=== PATIENT | female | born 1955 | race Caucasian/White ===

== ENCOUNTER → 2017-06-24 11:51 | Outpatient (CLI) | payer OTHER, SELFPAY ==
--- NOTE | 2017-06-24 11:55 | CT_ITS ---
STUDY: CT ABDOMEN AND PELVIS WITHOUT CONTRAST REASON FOR EXAM: Female, 61 years old. Mid abdominal pain and hematuria. RADIATION DOSAGE (If Supplied By Facility): CTDIvol = ( 10.50 ) mGy, DLP = ( 548.12 ) mGycm TECHNIQUE: Transaxial images were obtained from the dome of the diaphragm to the symphysis pubis without oral contrast, and without intravenous contrast. Sagittal and coronal images were reconstructed. Individualized dose optimization techniques were used for this CT. COMPARISON: None. FINDINGS: The visualized lung bases are unremarkable. The visualized portions of the heart are within normal limits. There is a 1.3 cm cyst in the superior aspect of the right lobe of the liver. There are surgical clips in the gallbladder fossa consistent with a prior cholecystectomy. Normal spleen. Normal pancreas. Normal bilateral adrenal glands. 2 tiny nonobstructive intrarenal calculi are seen in the lower pole calyx of the right kidney. 2 tiny nonobstructive calculi are seen in the lower pole calyx of the left kidney. There is a small hiatal hernia. Normal small intestine. Normal colon. The appendix is visualized and appears normal. Normal abdominal aorta. Normal inferior vena cava. Normal retroperitoneum. Normal urinary bladder. There is a 2.3 cm x 3.4 cm cyst in the left ovary. Normal abdominal wall. There are degenerative changes of the visualized lumbar spine. CT/Abdomen/Pelvis without Cont IMPRESSION: Small bilateral nonobstructive intrarenal calculi. No obstructive uropathy is seen. 2.3 cm x 3.4 cm left ovarian cyst. Electronically Signed: Adalberto Hurtado MD at 12:29 EST Tel [phone], Service support ,
== END ==
PROVIDERS: Family Provider Internal Medicine; PCP Internal Medicine; Visit Provider Nurse Practitioner Gerontology
DX: N20.0 Calculus of kidney (principal); N83.202 Unspecified ovarian cyst, left side
CPT/HCPCS: 74176

== ENCOUNTER → 2017-11-05 15:06 | Outpatient (CLI) | payer OTHER, SELFPAY ==
--- NOTE | 2017-11-05 15:08 | RAD_ITS ---
STUDY: X-RAY - LUMBAR SPINE REASON FOR EXAM: Female, 62 years old. Low back pain TECHNIQUE: For view(s) of the lumbar spine were obtained. COMPARISON: None FINDINGS: Normal lumbar lordosis. There is no substantial scoliosis. There is a normal alignment of the vertebrae. There is multilevel endplate spondylosis of the lumbar vertebrae. There is multi-level degenerative disc disease with multi-level disc space narrowing. There is no demonstrated fracture. Previous cholecystectomy The soft tissue structures are unremarkable. RAD/L/S Spine Min 4 Views IMPRESSION: Degenerative changes of the spine, as detailed above. Electronically Signed: Satnam Nelson MD at 16:04 EDT , Service support ,
== END ==
PROVIDERS: Family Provider Internal Medicine; PCP Internal Medicine; Visit Provider Nurse Practitioner Gerontology
DX: M47.896 Other spondylosis, lumbar region (principal); M51.36 Other intervertebral disc degeneration, lumbar region; M48.061 Spinal stenosis, lumbar region without neurogenic claudication
CPT/HCPCS: 72110

== ENCOUNTER 2017-11-13 12:51 | Outpatient (RCR) | payer OTHER, SELFPAY ==
--- NOTE | 2017-11-13 14:00 | HP.PTEVAL_ITS ---
Patient's Visit Information DENIS ORR is a 62 year old F referred to Physical Therapy by Mya Woodard NP-C with a diagnosis of back pain, spondylosis and muscle spasm. Date of Evaluation: 11/13/17 Physical Therapist: Lise Mccracken - Visit Plan Frequency: 2x /Week Duration: 4 Weeks Plan: 1-2X/ week due to high co-pay for extension centralization of symptoms, postural exercises, core stability with HEP - Subjective Subjective: [place] is wonderful. Sitting hurts. She is sleeping ok. She did do x-rays and they were normal. 2 weeks ago she picked up a heavy box and she felt something weird but did not feel it until a few days later. Current symptoms: riding in a car hurts and sitting hurts. When she stands up she felt a squeezing of LB and to get up to go to bathroom she had to hold onto something for awhile until it lets up but now she does not have that anymore. She does take Pilates 2 X/ week. No N&T or weakness in the legs - Pain back pain Pain Intensity (Out of 10): 2 - Objective Gait: B hip drop with gait other [place] normal gait pattern. Able to walk on heels and on toes. LE MMT:hip flex 4/5 B, knee ext 4/5 B, knee flex B 4-/5, hip abd B 4/5, hip ext B 4-/5. +SLIMPT test B, + SLR on the R and - on the L. 2X 10 press ups... Pt's R SLUMP test was still + but improved. An additional 2 X 10 Press ups .....pt sat up and had no pain with R SLUMP test. Discussed progression of prone on elbows to press up and full press up with letting belly sag to the table. Discussed and had pt sit with a L-roll behind back and did not have pain after press ups. Discussed avoiding pilates for now with flexion and twisting activities. - Goals Goal 1:: I HEP Goal Time Frame: 4-6 Weeks Goal 2:: Abolish back pain in sitting Goal Time Frame: 4-6 Weeks Goal 3:: Abolish + SLUMP test B Goal Time Frame: 4-6 Weeks Goal 4:: Sit with upright posture during treatment sessions Goal Time Frame: 4-6 Weeks - Rehabilitation Potential Rehabilitation Potential: Good - Anticipated Interventions Patient/Client Instruction: Educate patient on: Condition, Plan of Care For the Purpose of:: To decrease pain, To increase ROM, To improve nutrient delivery to tissue, To improve muscle performance and motor function, To improve ability to perform ADL's, To increase tolerance to activity/condition/ position, To improve health of tissue, To decrease soft tissue restriction, To increase flexibility/ROM Therapeutic Exercise to Include: Strength training, Body mechanics, Postural training, Dynamic Lumbar Stabilization, Andi Exercises, Scapular Strength/ Stabilization For the Purpose of:: To decrease pain, To decrease swelling/inflammation, To increase ROM, To improve nutrient delivery to tissue, To improve muscle performance and motor function, To increase tolerance to activity/condition/ position, To improve ability of physical actions for home/community/work/leisure , To improve health of tissue, To increase flexibility/ROM IF ES: Yes Cryotherapy (ice pack, ice massage): Yes Thermo therapy (hot pack): Yes Ultrasound (thermal/non thermal): Yes For the Purpose of:: To decrease pain, To decrease swelling/inflammation, To increase ROM, To improve nutrient delivery to tissue Thank you for the opportunity to evaluate your patient. For Medicare and Medicare HMO plans, please review the plan of care and approve it. It will need to be FAXED BACK to us at [phone] for Medicare purposes. Please let me know if there are questions or concerns regarding this plan of care. Physician Signature: Date:
--- NOTE | 2018-01-01 17:29 | HP.PTDCNRP_ITS ---
HP - Discharge Summary (1) - Patient Information DENIS ORR was seen in my office for initial evaluation on 11/13/17. The following Plan of Care was established for this patient: Initial Frequency: 2x /Week Initial Duration: 4 Weeks - Anticipated Interventions Patient/Client Instruction: Educate patient on: Condition, Plan of Care For the Purpose of:: To decrease pain, To increase ROM, To improve nutrient delivery to tissue, To improve muscle performance and motor function, To improve ability to perform ADL's, To increase tolerance to activity/condition/ position, To improve health of tissue, To decrease soft tissue restriction, To increase flexibility/ROM Therapeutic Exercise to Include: Strength training, Body mechanics, Postural training, Dynamic Lumbar Stabilization, Andi Exercises, Scapular Strength/ Stabilization For the Purpose of:: To decrease pain, To decrease swelling/inflammation, To increase ROM, To improve nutrient delivery to tissue, To improve muscle performance and motor function, To increase tolerance to activity/condition/ position, To improve ability of physical actions for home/community/work/leisure , To improve health of tissue, To increase flexibility/ROM IF ES: Yes Cryotherapy (ice pack, ice massage): Yes Thermo therapy (hot pack): Yes Ultrasound (thermal/non thermal): Yes For the Purpose of:: To decrease pain, To decrease swelling/inflammation, To increase ROM, To improve nutrient delivery to tissue This patient was last seen in our office 11/13/17. Pertinent comments regarding their Physical therapy will appear below: CARMINE PT as pt cancelled her next appointment after the inital eval. At this point I will be discontinuing this patient from physical therapy. I would be happy to see this patient again in the future if found appropriate by the physician. Thank you! Lise Mccracken
== END 2017-11-13 19:00 | disposition home or self-care (01) ==
LOC: PT 12:51
PROVIDERS: Family Provider Internal Medicine; PCP Internal Medicine; Visit Provider Nurse Practitioner Gerontology
DX: M47.817 Spondylosis without myelopathy or radiculopathy, lumbosacral region (principal); M54.9 Dorsalgia, unspecified; M62.838 Other muscle spasm
CPT/HCPCS: 97161

== ENCOUNTER → 2018-03-18 09:30 | Outpatient (CLI) | payer OTHER, SELFPAY ==
--- NOTE | 2018-03-18 09:30 | FLU_PTH ---
PATIENT: DENIS ORR LOC: [facility] U#:[id number] AGE/SX: 69/F ROOM: RE03/18/[address]: NICHOLE Mcelroy : 1955 BED: DIS: SPEC #: [id number] RECD: 03/18/18 16:00 STATUS: SHAYY KIARA #: [id number] LEONORA: 03/18/18 09:[address]: Jennifer Decker NP DEPT: CYTOLOGY RECD BY: Dorcas Zapata ENTERED: 03/19/18 10:28 SP TYPE: Fluid OTHR DR: Dr. Consuelo Farrell, DO Tissues: Urine Procedures: Pap Stain (control) Special Stain Group II Cytospin Fluid HEADER OPERATION: Not noted PRE-OP DIAGNOSIS: Gross hematuria TISSUE SUBMITTED: Urine for cytology DIAGNOSIS CYTOLOGY Urine for cytology (cytospin): Negative for malignant cells. See comment. AM:hussein 03/20/18 COMMENT The specimen primarily contains benign squamous epithelial cells. Clinical correlation is suggested. CYTOLOGY STUDY Slides are reviewed. CYTOLOGY GROSS Received is 5 ml of cloudy yellow fluid labeled with the patient's name and and designated per the requisition as urine. Submitted for cytology preparation. / CC:cc 03/19/18 TC:5 CPT: 63622
[2018-03-19 10:26] LABS: Cytology, Body Fluid / CSF SEE PATHOLOGY REPORT
--- OUTSIDE RECORDS SUMMARY | 2018-05-14 17:37 | XMS RPT_ITS | Continuity of Care Document ---
:1955 Author Organization [facility] Address [address] [facility] [address] [place] [address] Phone Care Team Providers Name Role Phone [...] 2007, Dr. Makayla Fierro [facility] neurologist in [place], had head injuries in past. at first [...] Active Dispense as Written Comments:LUCASDr. Kerr at [facility] cosme Premarin 0.45 MG Oral Tablet 1 Tablet qd for 30 days Quantity: 30 {Tablet} Refills: 0 Ordered:20-Sep-2017 Maura Farrell DO, DO, Kathleen Start : 20-Sep-2017 Active Probiotic & Acidophilus Ex St Oral Capsule daily Active Prometrium 200 MG Oral Capsule 1 Capsule qd for 0 days Quantity: 30 {Capsule} Refills: 0 Ordered:29-May-2017 Qi TOOL TROUBLE SHOOTERConcepcion Start : 29-May-2017 Active Comments:Dr. Castro [facility] VITAMIN D3, 2000UNIT (Oral Capsule) 1 [...] - PT Result: Comments: See Note; NOTES: [facility] Physical Therapy [facility] [facility] [place], [place] [id number] Fax REHABILITATION SERVICES INITIAL EVALUATION MR#: [id number] Acct: [id number] Name: ELAINE CORNEJO Rep #: [id number] : 1955 62 From: Lise Mccracken MPT Referring Dr.: NICHOLE Woodard Status: REG RCR Insurance: [facility] SELF PAY INSURANCE Patient's Visit Information ELAINE [...] to be FAXED BACK to us at [phone] for Medicare purp oses. Please let me [...] 4 Views Result: Comments: See Note; NOTES: [facility] Imaging Services [address] [place] [address] L/S Spine Min 4 Views MR#: [id number] Acct: [id number] Name: ELAINE CORNEJO Rep #: [id number] : 1955 F 62 From: Moiz Nelson MD PCP: Rachel Jeff DO Status: REG CLI Study: L/S Spine Min 4 Views Date of Exam: 11/05/17 Exam# [id number] Ordering Dr: Mya Woodard STUDY: X-RAY - [...] MD at 16:04 EDT , Service support [phone], CC: NICHOLE Woodard; Rachel Jeff DO Environmental Sustainability Manager: Signed 24-Jun-2017 Abdomen/Pelvis without Cont Result: Comments: See Note; NOTES: [facility] Imaging Services [address] [place] [address] Abdomen/Pelvis without Cont MR#: [id number] Acct: [id number] Name: ELAINE CORNEJO Rep #: [id number] : 1955 F 61 From: Adalberto Hurtado MD PCP: Rachel Jeff DO Status: REG CLI Study: Abdomen/Pelvis without Cont Date of Exam: 06/24/17 Exam# [id number] Ordering Dr: Mya Woodard STUDY: CT ABDOMEN [...] Adalberto Hurtado MD at 12:29 EST Tel [phone], Service support , CC: NICHOLE Woodard; Rachel Jeff DO Environmental Sustainability Manager: Signed 10-Nov-2015 Bilat Scrn Digital AND CAD Result: Comments: See Note; NOTES: [facility] Imaging Services [address] [place] [address] Verdana 4d Bilat Scrn Digital AND CAD MR#: [id number] Acct: [id number] Name: ELAINE CORNEJO Rep #: [id number] : 1955 F 60 From: Adalberto Hurtado MD PCP: Juana Acosta MD Status: REG CLI Study: Micky Youngblood Digital AND CAD Date of Exam: 11/10/15 Exam# [id number] Inder king Dr: Juana Acosta MD MAMMOGRAPHY [...] delay biopsy of a clinically suspicious abnormality. [id number] Electronically Signed: Adalberto Hurtado MD at 15:30 EDT Tel [phone], Servic e support [phone], CC: Juana Acosta MD Environmental Sustainability Manager: Signed 10-Nov-2015 Dexa Bone Density Study (HP) Result: Comments: See Note; NOTES: [facility] Imaging Services [address] [place] [address] Verdana 4d Dexa Bone Density Study (HP) MR#: [id number] Acct: [id number] Name : ELAINE CORNEJO Rep #: [id number] : 1955 F 60 From: Adalberto Hurtado MD PCP: Juana Acosta MD Status: REG CLI Study: Dexa Bone Density Study (HP) Date of Exam: 11/10/15 Exam# [id number] Ludivina yung Dr: Juana Acosta MD STUDY: [...] Adalberto Hurtado MD at 15:16 EDT Tel [phone], Service support [phone], CC: Juana Acosta MD Environmental Sustainability Manager: Signed 27-Oct-2015 Post Void Residual Bladder Result: Comments: See Note; NOTES: [facility] Imaging Services [address] [place] [address] Verdana 4d Post Void Residual Bladder MR#: [id number] Acct: [id number] Name: ELAINE CORNEJO Rep #: [id number] : 1955 F 60 From: Jeyson Espinoza MD PCP: Juana Acosta MD Status: REG CLI Study: Post Void Residual Bladder Date of Exam: 10/27/15 Exam# [id number] Ordering Dr: Juana Acosta MD STUDY: ULTRASOUND [...] Service support , CC: Juana Acosta MD Environmental Sustainability Manager: Signed Family History Unknown Family Member Name [...] smoker Vital Signs Date Test Result Details 14-Xhd-491101:27 Temperature 97.9 f Comments: Method: Temporal Pulse [...] CULTURE-IDENTIFICATN Comments: PATIENT NOT FASTINGPERFORMED BY: [facility] Qvzgpx1328 [facility] [id number] Information: [id number] (08873) Result 1 NG36 (Normal) Comments: No growth in 36 - 48 hours. Urine Culture,Comprehensive Final report (Normal) :29 Urinalysis, Office (21539) UA - LEUKOCYTE ESTERASE Negative (Normal) UA - NITRITE Negative (Normal) URINE UROBILINGN ERIC TIMED Normal mg/dL (Normal) UA - PROTEIN Negative mg/dL (Normal) UA - PH 7 (Normal) UA - BLOOD + (Abnormal) UA - SPECIFIC GRAVITY 1.020 (Normal) UA - KETONES Negative mg/dL (Normal) UA - BILIRUBIN Negative (Normal) UA - GLUCOSE Negative (Normal) 4-Vff-994385:51 Microscopic Examination Comments: PATIENT WAS FASTINGPERFORMED BY: aka-aki networksSamaritan HospitalCvfskf7340 [facility] [id number] Bacteria Few (Normal) Mucus Threads Present (Normal) Epithelial Cells (non renal) 0-10 {/hpf} (Normal) Range: 0 - 10 RBC 0-2 {/hpf} (Normal) Range: 0 - 2 WBC 11-30 {/hpf} (Abnormal) Range: 0 - 5 :51 TSH (54820) Comments: PATIENT WAS FASTINGPERFORMED BY: Cycl[facility] Power TechnologiesJFK Medical CenterQptgtc0062 [facility] [id number] TSH 2.670 {uIU/mL} (Normal) Range: 0.450-4.500 8-Gey-821130:51 URINALYSIS, W/ MICRO (03599) Comments: PATIENT WAS FASTINGPERFORMED BY: Cycl[facility] Power TechnologiesJFK Medical CenterVzzxuo4483 [facility] [id number] Microscopic Examination See below: (Normal) Comments: Microscopic was indicated and was performed. Nitrite, Urine Negative (Normal) Urobilinogen,Semi-Qn 0.2 mg/dL (Normal) Range: 0.2-1.0 Bilirubin Negative (Normal) Occult Blood 2+ (Abnormal) Ketones Negative (Normal) Glucose Negative (Normal) Protein 1+ (Abnormal) WBC Esterase Trace (Abnormal) Appearance Clear (Normal) Urine-Color Yellow (Normal) pH 8.5 (Abnormal) Range: 5.0-7.5 Specific [place] 1.020 (Normal) Range: 1.005-1.030 9-Qnp-170081:51 MICROALBUMIN: CREATININE RATIO Comments: PATIENT WAS FASTINGPERFORMED BY: aka-aki networksThree Rivers Health Hospital6370 [facility] [id number] (86518) AND (12964) Alb/Creat Ratio 16.2 {mg/g_creat} (Normal) Range: 0.0-30.0 Albumin, Urine 23.7 ug/mL (Normal) Creatinine, Urine 146.3 mg/dL (Normal) 5-Vfa-289548:51 METABOLIC PANEL, COMPREHENSIVE Comments: PATIENT WAS FASTINGPERFORMED BY: Hittahem70 [facility] [id number] (53579) ALT (SGPT) 15 [iU]/L (Normal) Range: 0-32 [...] 8-27 Glucose 94 mg/dL (Normal) Range: 65-99 9-Xra-933142:51 LIPID PANEL (90753) Comments: PATIENT WAS FASTINGPERFORMED BY: Hittahem70 [facility] [id number] LDL/HDL Ratio 1.4 {ratio} (Normal) Range: 0.0-3.2 Comments: LDL/HDL Ratio Men Women 1/2 Avg.Risk 1.0 1.5 Av g.Risk 3.6 3.2 2X Avg.Risk 6.2 5.0 3X Avg.Risk 8.0 6.1 LDL Cholesterol Calc 64 mg/dL (Normal) Range: 0-99 VLDL Cholesterol Beni 72 mg/dL (Abnormal) Range: 5-40 HDL Cholesterol 46 mg/dL (Normal) Triglycerides 362 mg/dL (Abnormal) Range: 0-149 Cholesterol, Total 182 mg/dL (Normal) Range: 100-199 8-Viv-230062:51 CBC W/AUTO DIFF WBC (62675) Comments: PATIENT WAS FASTINGPERFORMED BY: [facility] Gpzgus2323 [facility] [id number] Immature Grans (Abs) 0.0 {x10E3/uL} (Normal) Range: [...] (Normal) Range: 3.4-10.8 :54 HgA1C , Office (31011) HgA1C , Office 6.0 % (Normal) Range: 4.6 - 7.1 :54 Blood Glucose , Office (46411) Blood Glucose , Office 86 (Normal) :54 URINE VAUGHN CULTURE-IDENTIFICATN Comments: PATIENT NOT FASTINGPERFORMED BY: [employer] Vhirlg3675 [facility] [id number] Information: SRC: (37527) Result 1 NG36 (Normal) Comments: No growth in 36 - 48 hours. Urine Culture,Comprehensive Final report (Normal) 2-Gpx-520656:03 Urinalysis, Office (13748) UA - LEUKOCYTE ESTERASE Negative (Normal) UA - NITRITE Negative (Normal) URINE UROBILINGN ERIC TIMED 2 mg/dL (Normal) UA - PROTEIN Negative mg/dL (Normal) UA - PH 7.0 (Normal) UA - BLOOD Hemolyzed Trace (Normal) UA - SPECIFIC GRAVITY 1.010 (Normal) UA - KETONES Negative mg/dL (Normal) UA - BILIRUBIN Negative (Normal) UA - GLUCOSE Negative (Normal) 5-Efq-313503:27 URINE VAUGHN CULTURE-ERIC COL Comments: PATIENT NOT FASTINGPERFORMED BY: [employer] Zlycyi9205 [facility] [id number] Information: SRC: COUNT (50191) Result 2 PSMS (Abnormal) Comments: Pseudomonas [id number] Colonies/mL S = Susceptible; I = Intermediate; [...] clindamycin, andtrimethoprim-sulfamethox azole are not effective clinically.(CLSI, X800-X72, 2016) Urine Final report (Abnormal) Culture,Comprehensive 0-Vjv-260441:52 Urinalysis, Office (78793) UA - LEUKOCYTE ESTERASE Negative (Normal) UA [...] Culture,Comprehensive Comments: PATIENT NOT FASTINGPERFORMED BY: [facility] Ekfjsy2528 [facility] [id number] Information: SRC:UC Result 1 PSMS (Abnormal) Comments: Pseudomonas aeruginosaGreater than 100,000 colony forming units per mL S = Susceptible; I = Intermediate; R = Resistant P = Positive; N = Negative MICS are expres sed in micrograms per mL Antibiotic RSLT#1 RSLT#2 RSLT#3 RSLT#4Amikacin SCefepime SCeftazidime SCiprofloxacin SGentamicin SImipenem SLevofloxacin SMeropenem SPiperacillin STicarcillin STobramycin S Urine Final report (Abnormal) Culture,Comprehensive 23-May-20177:53 Urinalysis, Office (21256) UA - LEUKOCYTE ESTERASE Trace (Normal) UA - NITRITE Negative (Normal) URINE UROBILINGN ERIC TIMED 2 mg/dL (Normal) UA - PROTEIN Negative mg/dL (Normal) UA - PH 7.0 (Normal) UA - BLOOD Hemolyzed Large (Normal) UA - SPECIFIC GRAVITY 1.015 (Normal) UA - KETONES Negative mg/dL (Normal) UA - BILIRUBIN Negative (Normal) UA - GLUCOSE Negative (Normal) 87-Hlt-11416:12 HGB A1C (13963) Comments: PATIENT WAS FASTINGPERFORMED BY: [facility] [id number] Hemoglobin A1c 6.2 % (Abnormal) Range: 4.8-5.6 Comments: . Pre-diabetes: 5.7 - 6.4 Diabetes: >6.4 Glycemic control for adults with diabetes: <7.0 86-Yfy-02914:12 CALCIFEDIOL (03893) Comments: PATIENT WAS FASTINGPERFORMED BY: aka-aki networksThree Rivers Health Hospital6370 [facility] [id number] Vitamin D, 25-Hydroxy 40.1 ng/mL (Normal) Range: 30.0-100.0 Comments: Vitamin D deficiency has been defined by the [place] of[place] and an Endocrine Society practice guideline as alevel of serum 25-OH vitamin D less than 20 ng/mL (1,2).The Endocrine Society went on to further define vitamin Dinsufficiency as a level between 21 and 29 ng/mL (2).1. IOM ([place] of Medicine). 2010. Dietary reference intakes for calcium and D. [place]: The National Academies Press.2. Nasra MF, [place], Hugh DÍAZ, et al. Evaluation, treatment, and prevention of vitamin D deficiency: an Endocrine Society clinical practice guideline. JCEM. 2010; 96(7):1911-30. 50-Mva-00707:12 CBC, Platelets & Auto Diff Comments: PATIENT WAS FASTINGPERFORMED BY: [facility]6[address] [facility] [id number] (69859) Basos 0 % (Normal) Eos 3 % [...] Neutrophils (Absolute) 4.0 {x10E3/uL} (Normal) Range: 1.4-7.0 13-Bla-02235:12 Metabolic Panel, Comprehensive Comments: PATIENT WAS FASTINGPERFORMED BY: LabCoJFK Medical CenterCwnmch0492 [facility] [id number] (27808) ALT (SGPT) 15 [iU]/L (Normal) Range: 0-32 [...] Glucose, Serum 108 mg/dL (Abnormal) Range: 65-99 54-Swt-72624:12 LIPID PANEL (12560) Comments: PATIENT WAS FASTINGPERFORMED BY: [facility] Nvlyot7719 [facility] [id number] LDL/HDL Ratio 1.5 {ratio_units} (Normal) Range: 0.0-3.2 [...] (Normal) Range: 100-199 :38 HgA1C , Office (10659) HgA1C , Office 6.1 % (Normal) Range: 4.6 - 7.1 :47 Blood Glucose , Office (94520) :12 CBC W/Diff, Automated Comments: [facility] [address] [place], [place], [id number] ; fu 7-28 Absolute Lymph 2.58 {X10_3/ul} [...] 4.2-5.4 WBC 6.3 K/mm3 (Normal) Range: 4.4-11.0 07-Izi-04975:12 Comprehensive Metabolic Profil Comments: [facility] [address] [place], [address] GAP 10 (Normal) Range: 5-15 CO2 24.0 [...] (Normal) Range: 70-110 :12 Free T3 Comments: [facility] [address] [place], [place], [address] FREE T3 2.6 pg/mL (Normal) Range: 2.18-3.98 :12 Lipid Profile Comments: [facility] [address] [place], [place], [id number] VLDL 55 mg/dL (Abnormal) Range: 5-40 LDL [...] >240 mg/dL High Risk :12 Prolactin Comments: [facility] [address] [place], [address] PROLACTIN 5.2 ng/mL (Normal) Comments: NORMAL REFERENCE RANGES FEMALE NON- 2.2 - 30.3 ng/mL 8.1 - 347.6 ng/mL POST-MENOPAUSAL 0.7 - 3 1.5 ng/mL MALE 2.5 - 17.4 ng/mLNEW TEST METHOD AND REFERENCE RANGES SEPTEMBER 10, 2011:12 T4 Free Direct Comments: [facility] [address] [place], [phone] T4 FREE DIRECT 0.85 ng/dL (Normal) Range: 0.76-1.46 :12 Thyroid Stim Hormone (TSH) Comments: [facility] [address] [place], [address] TSH 3.00 {uIU/mL} (Normal) Range: 0.358-3.74 :12 Vitamin D,25 Hydroxy Comments: [facility] [address] [place], [address] Vitamin D 25-OH 28.4 ng/mL (Normal) Comments: Vitamin D 25(OH) Status Range Deficiency <20 ng/mL (50nmol/L) Insuffciency 20 - 30 ng/mL (50 - 75 nmol/L) Sufficiency 30 - 100 ng/mL (75 - 250 nmol/L) Toxicity >100 ng/mL (>250 nmol/L) 3-Wtd-612739:02 URINE VAUGHN CULTURE-IDENTIFICATN Comments: recheck in 3-4 weeks once done with atb; PATIENT NOT FASTINGPERFORMED BY: [facility] Wdjgtb4185 [facility] [id number] Information: [id number] (14845) Antimicrobial MIHEAD (Normal) Comments: S = Susceptible; [...] Final report Culture,Comprehensive (Abnormal) :56 Urinalysis, Office (42926) UA - LEUKOCYTE ESTERASE Negative (Normal) UA - NITRITE Negative (Normal) URINE UROBILINGN ERCI TIMED Normal mg/dL (Normal) UA - PROTEIN Negative mg/dL (Normal) UA - BLOOD Negative (Normal) UA - SPECIFIC GRAVITY 1.020 (Normal) UA - KETONES Small mg/dL (Normal) UA - BILIRUBIN Negative (Normal) UA - GLUCOSE Negative (Normal) 89-Nlk-977197:05 URINE VAUGHN CULTURE-ERIC COL Comments: PATIENT NOT FASTINGPERFORMED BY: [facility] Vjwqhi1491 [facility] [id number] Information: SRC:URC [id number] COUNT (93101) Antimicrobial MIHEAD (Normal) Comments: S = Susceptible; [...] mL (Abnormal) Urine Final report Culture,Comprehensive (Abnormal) 73-Dzv-29595:02 Urinalysis, Office (95945) UA - LEUKOCYTE ESTERASE Negative (Normal) UA [...] Lab Indication: Hematuria, microscopic Hyperlipidemia : Reviewed Senior Product Consultant Letter Indication: Hyperlipidemia Hyperlipidemia : Continue Current [...] prescriptions (G8553) Indication: Hyperlipidemia Planned Observations TRIGLYCERIDES (50413)Indication: Hypertriglyceridemia On: 23-Ypu-606611:11 Request Blood Glucose , Office (06060)Indication: Impaired fasting glucose On: 10-Qhm-24812:47 Request CALCIFIDIOL (83246) VIT D 25Indication: Osteopenia On: :56 Request PROLACTIN (65796)Indication: PMB (postmenopausal bleeding) On: :42 Request CBC (Auto) (10896)Indication: Hyperlipidemia On: :42 Request Metabolic Panel, Comprehensive (01054)Indication: Hyperlipidemia On: :42 Request Lipid Panel (87041)Indication: Hyperlipidemia On: :42 Request T3, FREE (TRIDOTHYRONINE) (13505)Indication: PMB (postmenopausal bleeding) On: :42 Request T4, FREE (THYROXINE) (73779)Indication: PMB (postmenopausal bleeding) On: :42 Request TSH (94267)Indication: PMB (postmenopausal bleeding) On: :42 Request Planned Procedures PHYSICAL THERAPY (73080)By: Vance On: 07-Nov-2017 Intent Mya PHYSICAL THERAPY (50788)By: Vance On: 05-Nov-2017 Intent Mya Wax CurettesBy: Mya Woodard On: 05-Nov-2017 Intent Ear Irrigation (94264)By: Vance On: 05-Nov-2017 Intent Mya Comments: IrrigationSite- L and R earAmount/Color/Quality - small amoubt of dark brown cerumen removed from bilateral ears Tolerated wellChelsea, ENGRAVER COPPERPLATE Radiology - Lumbar SpineBy: Vance On: 05-Nov-2017 Intent Mya ELECTROCARDIOGRAM, COMPLETE (ECG) On: 20-Sep-2017 Intent (17191)By: Consuelo Farrell DO Comments: nsr no acute chgs-- IVCD-- no old to compare Consuelo Farrell DO CT - Abdomen & Pelvis Stone On: 24-Jun-2017 Intent ProtocolBy: Mya Woodard Comments: R/O kidney stone BLADDER ULTRASOUND SCAN WITH On: 22-Sep-2015 Intent MEASUREMENT OF POST-VOID RESIDUAL Comments: in 4 weeks after done with atb URINE VOLUME (60420)By: Juana Acosta MD MAMMOGRAM, SCREENING, BOTH BREAST On: 29-Aug-2015 Intent (00299)By: Juana Acosta MD DEXA SCAN AXIAL SKELETON (08873)By: On: 29-Aug-2015 Intent Dave FAITH, Juana Carr [...] for malignant neoplasm of breast), Sleep disturbance [facility] Internal Medicine Payers [facility] Tanner Cornejo; a guarantor
--- OUTSIDE RECORDS SUMMARY | 2018-05-14 17:37 | XMS RPT_ITS | Continuity of Care Document ---
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 at first [...] Active Dispense as Written Comments:LUCASDr. Kerr at [facility] cosme Premarin 0.45 MG Oral Tablet 1 Tablet qd for 30 days Quantity: 30 {Tablet} Refills: 0 Ordered:20-Sep-2017 Maura Farrell DO, DO, Kathleen Start : 20-Sep-2017 Active Probiotic & Acidophilus Ex St Oral Capsule daily Active Prometrium 200 MG Oral Capsule 1 Capsule qd for 0 days Quantity: 30 {Capsule} Refills: 0 Ordered:29-May-2017 Concepcion Busby CNP Start : 29-May-2017 Active Comments:Dr. Castro [facility] VITAMIN D3, 2000UNIT (Oral Capsule) 1 [...] - PT Result: Comments: See Note; NOTES: [facility] Physical Therapy [facility]. [address] [place] [address] Fax REHABILITATION SERVICES INITIAL EVALUATION MR#: [id number] Acct: [id number] Name: ELAINE CORNEJO Rep #: [id number] : 1955 62 From: Lise Mccracken MPT Referring Dr.: NICHOLE Woodard Status: REG RCR Insurance: icanbuy SELF PAY INSURANCE Patient's Visit Information ELAINE [...] to be FAXED BACK to us at [phone] for Medicare purp oses. Please let me [...] 4 Views Result: Comments: See Note; NOTES: [facility] Imaging Services [address] [place] [address] L/S Spine Min 4 Views MR#: [id number] Acct: [id number] Name: ELAINE CORNEJO Rep #: [id number] : 1955 F 62 From: Moiz eNlson MD PCP: Rachel Jeff DO Status: REG CLI Study: L/S Spine Min 4 Views Date of Exam: 11/05/17 Exam# [id number] Ordering Dr: Mya Woodard STUDY: X-RAY - [...] MD at 16:04 EDT , Service support [phone], CC: NICHOLE Woodard; Rachel Jeff DO Car Bracer: Signed 24-Jun-2017 Abdomen/Pelvis without Cont Result: Comments: See Note; NOTES: [facility] Imaging Services [address] [place] [address] Abdomen/Pelvis without Cont MR#: [id number] Acct: [id number] Name: ELAINE CORNEJO Rep #: [id number] : 1955 F 61 From: Adalberto Hurtado MD PCP: Rachel Jeff DO Status: REG CLI Study: Abdomen/Pelvis without Cont Date of Exam: 06/24/17 Exam# [id number] Ordering Dr: Mya Woodard STUDY: CT ABDOMEN [...] Adalberto Hurtado MD at 12:29 EST Tel [phone], Service support , CC: NICHOLE Woodard; Rachel Jeff DO Car Bracer: Signed 10-Nov-2015 Bilat Scrn Digital AND CAD Result: Comments: See Note; NOTES: [facility] Imaging Services [address] [place] [address] Verdana 4d Bilat Scrn Digital AND CAD MR#: [id number] Acct: [id number] Name: ELAINE CORNEJO Rep #: [id number] : 1955 F 60 From: Adalberto Hurtado MD PCP: Juana Acosta MD Status: REG CLI Study: Bilat Scrn Digital AND CAD Date of Exam: 11/10/15 Exam# [id number] Inder king Dr: Juana Acosta MD MAMMOGRAPHY [...] delay biopsy of a clinically suspicious abnormality. [id number] Electronically Signed: Adalberto Hurtado MD at 15:30 EDT Tel [phone], Servic e support [phone], CC: Juana Acosta MD Car Bracer: Signed 10-Nov-2015 Dexa Bone Density Study (HP) Result: Comments: See Note; NOTES: [facility] Imaging Services [address] [place] [address] [place] 4d Dexa Bone Density Study (HP) MR#: [id number] Acct: [id number] Name : ELAINE CORNEJO Rep #: [id number] : 1955 F 60 From: Adalberto Hurtado MD PCP: Juana Acosta MD Status: REG CLI Study: Dexa Bone Density Study (HP) Date of Exam: 11/10/15 Exam# [id number] Ludivina yung Dr: Juana Acosta MD STUDY: [...] Adalberto Hurtado MD at 15:16 EDT Tel [phone], Service support [phone], CC: Juana Acosta MD Car Bracer: Signed 27-Oct-2015 Post Void Residual Bladder Result: Comments: See Note; NOTES: [facility] Imaging Services [address] [place] [address] Verdana 4d Post Void Residual Bladder MR#: [id number] Acct: [id number] Name: ELAINE CORNEJO Rep #: [id number] : 1955 F 60 From: Jeyson Espinoza MD PCP: Juana Acosta MD Status: REG CLI Study: Post Void Residual Bladder Date of Exam: 10/27/15 Exam# [id number] Ordering Dr: Juana Acosta MD STUDY: ULTRASOUND [...] Service support , CC: Juana Acosta MD Car Bracer: Signed Family History Unknown Family Member Name [...] smoker Vital Signs Date Test Result Details 90-Daj-799450:27 Temperature 97.9 f Comments: Method: Temporal Pulse [...] Body Fluid / CSF Comments: Specimen Source: [facility] [address] [place], [address] CYTOLOGY,BF/CSF SEE PATHOLOGY REPORT Comments: Specimen submitted to Anatomical Pathology Department fortesting. (Normal) :30 Fluid/Washing See Note (Normal) Comments: [facility] [address] [place], [place], [id number] Comments: Patient: ELAINE CORNEJO : 1955 (62/F) Acct Num: [id number] Phys: Brianne MICHELA,Jennifer Unit Num: [id number] Loc: LABSPEC Specimen: [id number] Received: 03/18/18 - 1600 Spec Type: Fluid TISSUES 1 TISSUES: Urine COMMENT The specimen primarily contains benign squamous epithelial cells. Clinical correlation is suggested. CYTOLOGY GROSS Received is 5 m l of cloudy yellow fluid labeled with the patient's name and and designated per the requisition as urine. Submitted for cytology preparation. / CC:cc 03/19/18 TC:5 CPT: 33634 CYTOLOGY DYLLAN DY Slides are reviewed. DIAGNOSIS CYTOLOGY Urine for cytology (cytospin): Negative for malignant cells. See comment. AM:rg 03/20/18 HEADER OPERATION: Not noted PRE-OP DIAGNOSIS: Gross hematuria TISSUE SUBMITTED: Urine for cytology Signed [facility] 03/20/18 <signature on file> 85-Cjg-714356:38 URINE VAUGHN CULTURE-IDENTIFICATN Comments: PATIENT NOT FASTINGPERFORMED BY: Dagne Dover Hlcbti7580 [facility] [id number] Information: [id number] (78809) Result 1 NG36 (Normal) Comments: No growth in 36 - 48 hours. Urine Culture,Comprehensive Final report (Normal) 94-Kya-999759:29 Urinalysis, Office (74661) UA - LEUKOCYTE ESTERASE Negative (Normal) UA - NITRITE Negative (Normal) URINE UROBILINGN ERIC TIMED Normal mg/dL (Normal) UA - PROTEIN Negative mg/dL (Normal) UA - PH 7 (Normal) UA - BLOOD + (Abnormal) UA - SPECIFIC GRAVITY 1.020 (Normal) UA - KETONES Negative mg/dL (Normal) UA - BILIRUBIN Negative (Normal) UA - GLUCOSE Negative (Normal) 3-Yng-633446:51 Microscopic Examination Comments: PATIENT WAS FASTINGPERFORMED BY: Dagne DoverRoosevelt General HospitalAnctxf1917 [facility] [id number] Bacteria Few (Normal) Mucus Threads Present (Normal) Epithelial Cells (non renal) 0-10 {/hpf} (Normal) Range: 0 - 10 RBC 0-2 {/hpf} (Normal) Range: 0 - 2 WBC 11-30 {/hpf} (Abnormal) Range: 0 - 5 7-Yzc-219018:51 TSH (12864) Comments: PATIENT WAS FASTINGPERFORMED BY: [facility] [id number] TSH 2.670 {uIU/mL} (Normal) Range: 0.450-4.500 6-Bml-328225:51 URINALYSIS, W/ MICRO (16951) Comments: PATIENT WAS FASTINGPERFORMED BY: [facility] [place] [address] [id number] Microscopic Examination See below: (Normal) Comments: Microscopic was indicated and was performed. Nitrite, Urine Negative (Normal) Urobilinogen,Semi-Qn 0.2 mg/dL (Normal) Range: 0.2-1.0 Bilirubin Negative (Normal) Occult Blood 2+ (Abnormal) Ketones Negative (Normal) Glucose Negative (Normal) Protein 1+ (Abnormal) WBC Esterase Trace (Abnormal) Appearance Clear (Normal) Urine-Color Yellow (Normal) pH 8.5 (Abnormal) Range: 5.0-7.5 Specific [place] 1.020 (Normal) Range: 1.005-1.030 8-Fdh-264254:51 MICROALBUMIN: CREATININE RATIO Comments: PATIENT WAS FASTINGPERFORMED BY: [facility] [id number] (70989) AND (77688) Alb/Creat Ratio 16.2 {mg/g_creat} (Normal) Range: 0.0-30.0 Albumin, Urine 23.7 ug/mL (Normal) Creatinine, Urine 146.3 mg/dL (Normal) 6-Tfg-276253:51 METABOLIC PANEL, COMPREHENSIVE Comments: PATIENT WAS FASTINGPERFORMED BY: [facility] [id number] (84116) ALT (SGPT) 15 [iU]/L (Normal) Range: 0-32 [...] 8-27 Glucose 94 mg/dL (Normal) Range: 65-99 6-Rcv-367090:51 LIPID PANEL (34023) Comments: PATIENT WAS FASTINGPERFORMED BY: LabCoEnglewood Hospital and Medical CenterBrfwen1939 [facility] [id number] LDL/HDL Ratio 1.4 {ratio} (Normal) Range: 0.0-3.2 [...] Range: 100-199 :51 CBC W/AUTO DIFF WBC (35805) Comments: PATIENT WAS FASTINGPERFORMED BY: [facility] Luhtex7816 [facility] [id number] Immature Grans (Abs) 0.0 {x10E3/uL} (Normal) Range: [...] (Normal) Range: 3.4-10.8 :54 HgA1C , Office (68312) HgA1C , Office 6.0 % (Normal) Range: 4.6 - 7.1 :54 Blood Glucose , Office (27387) Blood Glucose , Office 86 (Normal) 5-Nxo-131361:54 URINE VAUGHN CULTURE-IDENTIFICATN Comments: PATIENT NOT FASTINGPERFORMED BY: [employer] Bxcshz9163 [facility] [id number] Information: SRC: ([id number]) Result 1 NG36 (Normal) Comments: No growth in 36 - 48 hours. Urine Culture,Comprehensive Final report (Normal) 7-Qzv-687709:03 Urinalysis, Office (87916) UA - LEUKOCYTE ESTERASE Negative (Normal) UA - NITRITE Negative (Normal) URINE UROBILINGN ERIC TIMED 2 mg/dL (Normal) UA - PROTEIN Negative mg/dL (Normal) UA - PH 7.0 (Normal) UA - BLOOD Hemolyzed Trace (Normal) UA - SPECIFIC GRAVITY 1.010 (Normal) UA - KETONES Negative mg/dL (Normal) UA - BILIRUBIN Negative (Normal) UA - GLUCOSE Negative (Normal) 1-Zca-348984:27 URINE VAUGHN CULTURE-ERIC COL Comments: PATIENT NOT FASTINGPERFORMED BY: [employer] Mgqojs6560 [facility] [id number] Information: SRC: COUNT (22467) Result 2 PSMS (Abnormal) Comments: Pseudomonas eynfybpntx712 Colonies/mL S = Susceptible; I = Intermediate; [...] clindamycin, andtrimethoprim-sulfamethox azole are not effective clinically.(CLSI, R893-Y10, 2016) Urine Final report (Abnormal) Culture,Comprehensive 4-Dnv-562708:52 Urinalysis, Office (17620) UA - LEUKOCYTE ESTERASE Negative (Normal) UA [...] Urine Culture,Comprehensive Comments: PATIENT NOT FASTINGPERFORMED BY: Beiang TechnologyAs[facility] Hospital [id number] Information: SRC: Result 1 PSMS (Abnormal) Comments: Pseudomonas aeruginosaGreater than 100,000 colony forming units per mL S = Susceptible; I = Intermediate; R = Resistant P = Positive; N = Negative MICS are expres sed in micrograms per mL Antibiotic RSLT#1 RSLT#2 RSLT#3 RSLT#4Amikacin SCefepime SCeftazidime SCiprofloxacin SGentamicin SImipenem SLevofloxacin SMeropenem SPiperacillin STicarcillin STobramycin S Urine Final report (Abnormal) Culture,Comprehensive 23-May-20177:53 Urinalysis, Office (94094) UA - LEUKOCYTE ESTERASE Trace (Normal) UA - NITRITE Negative (Normal) URINE UROBILINGN ERIC TIMED 2 mg/dL (Normal) UA - PROTEIN Negative mg/dL (Normal) UA - PH 7.0 (Normal) UA - BLOOD Hemolyzed Large (Normal) UA - SPECIFIC GRAVITY 1.015 (Normal) UA - KETONES Negative mg/dL (Normal) UA - BILIRUBIN Negative (Normal) UA - GLUCOSE Negative (Normal) :12 HGB A1C (87403) Comments: PATIENT WAS FASTINGPERFORMED BY: boomtrainox South49 SolutionsAs[facility] Hospital [id number] Hemoglobin A1c 6.2 % (Abnormal) Range: 4.8-5.6 Comments: . Pre-diabetes: 5.7 - 6.4 Diabetes: >6.4 Glycemic control for adults with diabetes: <7.0 97-Gvi-22991:12 CALCIFEDIOL (94523) Comments: PATIENT WAS FASTINGPERFORMED BY: [facility] Hospital6370 [facility] [id number] Vitamin D, 25-Hydroxy 40.1 ng/mL (Normal) Range: 30.0-100.0 Comments: Vitamin D deficiency has been defined by the [place] ofMedicine and an Endocrine Society practice guideline as alevel of serum 25-OH vitamin D less than 20 ng/mL (1,2).The Endocrine Society went on to further define vitamin Dinsufficiency as a level between 21 and 29 ng/mL (2).1. IOM ([place] of Medicine). 2010. Dietary reference intakes for calcium and D. [place]: The National Academies Press.2. Nasra MF, Topher ROCHA, Hugh DÍAZ, et al. Evaluation, treatment, and prevention of vitamin D deficiency: an Endocrine Society clinical practice guideline. JCEM. 2010; 96(7):1911-30. 09-Qho-75019:12 CBC, Platelets & Auto Diff Comments: PATIENT WAS FASTINGPERFORMED BY: LabCoEnglewood Hospital and Medical CenterVkchnp8972 [facility] [id number] (77378) Basos 0 % (Normal) Eos 3 % [...] Neutrophils (Absolute) 4.0 {x10E3/uL} (Normal) Range: 1.4-7.0 35-Eca-42606:12 Metabolic Panel, Comprehensive Comments: PATIENT WAS FASTINGPERFORMED BY: [facility] Pvfcqp7329 [facility] [id number] (03218) ALT (SGPT) 15 [iU]/L (Normal) Range: 0-32 [...] mg/dL (Abnormal) Range: 65-99 :12 LIPID PANEL (21164) Comments: PATIENT WAS FASTINGPERFORMED BY: [facility] Hsupzp[address] [place] [id number] LDL/HDL Ratio 1.5 {ratio_units} (Normal) Range: 0.0-3.2 [...] (Normal) Range: 100-199 :38 HgA1C , Office (91975) HgA1C , Office 6.1 % (Normal) Range: 4.6 - 7.1 :47 Blood Glucose , Office (71309) :12 CBC W/Diff, Automated Comments: [facility] [address] [place], [address] ; fu 7-28 Absolute Lymph 2.58 {X10_3/ul} [...] 4.2-5.4 WBC 6.3 K/mm3 (Normal) Range: 4.4-11.0 02-Yxw-50494:12 Comprehensive Metabolic Profil Comments: [facility] [address] [place], [place], [id number] GAP 10 (Normal) Range: 5-15 CO2 24.0 [...] (Normal) Range: 70-110 :12 Free T3 Comments: [facility] [address] [place], [place], [address] FREE T3 2.6 pg/mL (Normal) Range: 2.18-3.98 :12 Lipid Profile Comments: [facility] [address] [place], [place], [id number] VLDL 55 mg/dL (Abnormal) Range: 5-40 LDL [...] >240 mg/dL High Risk :12 Prolactin Comments: [facility] [address] [place], [place], [id number] PROLACTIN 5.2 ng/mL (Normal) Comments: NORMAL REFERENCE RANGES FEMALE NON- 2.2 - 30.3 ng/mL 8.1 - 347.6 ng/mL POST-MENOPAUSAL 0.7 - 3 1.5 ng/mL MALE 2.5 - 17.4 ng/mLNEW TEST METHOD AND REFERENCE RANGES SEPTEMBER 10, 2011:12 T4 Free Direct Comments: [facility] [address] [place], [place], [id number] T4 FREE DIRECT 0.85 ng/dL (Normal) Range: 0.76-1.46 :12 Thyroid Stim Hormone (TSH) Comments: [facility] [address] [place], [id number] TSH 3.00 {uIU/mL} (Normal) Range: 0.358-3.74 :12 Vitamin D,25 Hydroxy Comments: [facility] [address] [place], [id number] Vitamin D 25-OH 28.4 ng/mL (Normal) Comments: Vitamin D 25(OH) Status Range Deficiency <20 ng/mL (50nmol/L) Insuffciency 20 - 30 ng/mL (50 - 75 nmol/L) Sufficiency 30 - 100 ng/mL (75 - 250 nmol/L) Toxicity >100 ng/mL (>250 nmol/L) 8-Huk-561230:02 URINE VAUGHN CULTURE-IDENTIFICATN Comments: recheck in 3-4 weeks once done with atb; PATIENT NOT FASTINGPERFORMED BY: [facility] Hcswmj0265 [facility] [id number] Information: [id number] (93333) Antimicrobial MIHEAD (Normal) Comments: S = Susceptible; [...] Final report Culture,Comprehensive (Abnormal) :56 Urinalysis, Office (95969) UA - LEUKOCYTE ESTERASE Negative (Normal) UA - NITRITE Negative (Normal) URINE UROBILINGN ERIC TIMED Normal mg/dL (Normal) UA - PROTEIN Negative mg/dL (Normal) UA - BLOOD Negative (Normal) UA - SPECIFIC GRAVITY 1.020 (Normal) UA - KETONES Small mg/dL (Normal) UA - BILIRUBIN Negative (Normal) UA - GLUCOSE Negative (Normal) 69-Hqe-376846:05 URINE VAUGHN CULTURE-ERIC COL Comments: PATIENT NOT FASTINGPERFORMED BY: SERGEY [facility] [address] [place] [id number] Information: SRC:URC [id number] COUNT (37778) Antimicrobial MIHEAD (Normal) Comments: S = Susceptible; [...] mL (Abnormal) Urine Final report Culture,Comprehensive (Abnormal) 39-Qln-78078:02 Urinalysis, Office (77502) UA - LEUKOCYTE ESTERASE Negative (Normal) UA [...] Lab Indication: Hematuria, microscopic Hyperlipidemia : Reviewed Printer Operator Letter Indication: Hyperlipidemia Hyperlipidemia : Continue Current [...] Hyperlipidemia Planned Observations TSH (THYROID STIMULATING HORMONE) (51177)Indication: Hot flash, menopausal On: :40 Request URINALYSIS (34061)Indication: Type II diabetes mellitus, well controlled On: :39 Request CBC & PLATELETS (AUTO) (30429)Indication: Type II diabetes mellitus, well controlled On: 39 Request Metabolic Panel, Comprehensive (97320)Indication: Type II diabetes mellitus, well controlled On: :39 Request LIPID PANEL (10011)Indication: Hyperlipidemia On: :39 Request MICROALBUMIN: CREATININE RATIO (26336) AND (63054)Indication: Type II diabetes mellitus, well controlled On: 6-Gzi-500669:38 Request TRIGLYCERIDES (38592)Indication: Hypertriglyceridemia On: 69-Gds-796942:11 Request Blood Glucose , Office (30068)Indication: Impaired fasting glucose On: 62-Itt-37893:47 Request CALCIFIDIOL (64646) VIT D 25Indication: Osteopenia On: :56 Request PROLACTIN (04088)Indication: PMB (postmenopausal bleeding) On: :42 Request CBC (Auto) (82013)Indication: Hyperlipidemia On: :42 Request Metabolic Panel, Comprehensive (45522)Indication: Hyperlipidemia On: :42 Request Lipid Panel (24612)Indication: Hyperlipidemia On: :42 Request T3, FREE (TRIDOTHYRONINE) (36416)Indication: PMB (postmenopausal bleeding) On: :42 Request T4, FREE (THYROXINE) (62681)Indication: PMB (postmenopausal bleeding) On: :42 Request TSH (25093)Indication: PMB (postmenopausal bleeding) On: :42 Request Planned Encounters Medical; 3 Month FU - On: 09-Apr-2018 14:15 [facility] Consuelo Farrell DO, DO, Kathleen Planned Procedures PHYSICAL THERAPY (73390)By: Vance On: 07-Nov-2017 Intent Mya PHYSICAL THERAPY (27943)By: Vance On: 05-Nov-2017 Intent Mya Wax CurettesBy: Mya Woodard On: 05-Nov-2017 Intent Ear Irrigation (59688)By: Vance On: 05-Nov-2017 Intent Mya Comments: IrrigationSite- L and R earAmount/Color/Quality - small amoubt of dark brown cerumen removed from bilateral ears Tolerated wellChelsea, VEHICLE OPERATOR Radiology - Lumbar SpineBy: Vance On: 05-Nov-2017 Intent Mya ELECTROCARDIOGRAM, COMPLETE (ECG) On: 20-Sep-2017 Intent (90470)By: Consuelo Farrell DO Comments: nsr no acute chgs-- IVCD-- no old to compare Consuelo Farrell DO CT - Abdomen & Pelvis Stone On: 24-Jun-2017 Intent ProtocolBy: Mya Woodard Comments: R/O kidney stone BLADDER ULTRASOUND SCAN WITH On: 22-Sep-2015 Intent MEASUREMENT OF POST-VOID RESIDUAL Comments: in 4 weeks after done with atb URINE VOLUME (66575)By: Juana Acosta MD MAMMOGRAM, SCREENING, BOTH BREAST On: 29-Aug-2015 Intent (51724)By: Juana Acosta MD DEXA SCAN AXIAL SKELETON (54326)By: On: 29-Aug-2015 Intent Juana Acosta MD Instructions [...] breast), Sleep disturbance [facility] Payers [facility] Tanner Cornejo; a guarantor
--- OUTSIDE RECORDS SUMMARY | 2018-05-14 17:37 | XMS RPT_ITS ---
:1955 Author Organization OHIP Care Team Providers Name Role Phone Concepcion Busby Attending Unavailable Concepcion Busby Referring Unavailable Juana Acosta Primary Care Unavailable Mya Woodard RIVERBOAT CAPTAIN-C Attending Unavailable Mya Woodard RIVERBOAT CAPTAIN-C Referring Unavailable Fast, Rachel Primary Care Unavailable Mya Woodard RIVERBOAT CAPTAIN-C Attending Unavailable Mya Woodard RIVERBOAT CAPTAIN-C Referring Unavailable Fast, Rachel Primary Care Unavailable Fast, Rachel Primary Care Unavailable Referred, Self Attending Unavailable Mya Woodard RIVERBOAT CAPTAIN-C Attending Unavailable Mya Woodard RIVERBOAT CAPTAIN-Dontae Referring Unavailable Jami, Consuelo Primary Care Unavailable Jennifer Decker Attending Unavailable Jennifer Decker Attending Unavailable Jennifer Decker Referring Unavailable Jami, Consuelo Primary Care Unavailable CONCEPCION HUANG ([facility]) Attending Unavailable CONCEPCION HUANG ([facility]) Referring Unavailable ERWIN FIERRO Attending Unavailable Jami DO, Consuelo Attending Unavailable Juana Acosta MD Referring Unavailable Jami DO, Consuelo Consulting Unavailable Krystina MAYFIELD Attending Unavailable Franny Jeff Referring Unavailable Franny Jeff Primary Care Unavailable Purpose Purpose PROBLEMS PROBLEMS DATE TYPE CONDITION / CODE ATTENDING STATUS SOURCE 03/25/2018 Unknown R31.0 - Jennfier Toussaint Active [place] hematuria / M [facility] R31.0(ICD-10) Hospital Repository 01/01/2018 Unknown 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, lumbosacral region / M47.817(ICD-10) 10/17/2017 Active Headache / NATHANIEL, Active [facility] R51(ICD-10) [facility] Repository PROCEDURES PROCEDURES No Procedure Records FoundVITAL SIGNS VITAL SIGNS No Vital Signs Records FoundRESULTS RESULTS FLUID/WASHING Observed: 03/18/2018 Status: F Source: PABLO 9:30 AM [facility] REPOSITORY Patient: ELAINE CORNEJO : 1955 (62/F) Acct Num: [id number] Phys: Jennifer Decker NP Unit Num: [id number] Loc: LABSPEC Specimen: [id number] Received: 03/18/18 - 1600 Spec Type: Fluid TISSUES 1 TISSUES: Urine COMMENT The specimen primarily contains benign squamous epithelial cells. Clinical correlation is suggested. CYTOLOGY GROSS Received is 5 ml of cloudy yellow fluid labeled with the patient's name and and designated per the requisition as urine. Submitted for cytology preparation. / CC:cc 03/19/18 TC:5 CPT: 77676 CYTOLOGY STUDY Slides are reviewed. DIAGNOSIS CYTOLOGY Urine for cytology (cytospin): Negative for malignant cells. See comment. AM:rg 03/20/18 HEADER OPERATION: Not noted PRE-OP DIAGNOSIS: Gross hematuria TISSUE SUBMITTED: Urine for cytology Signed Kai Kimble 03/20/18 <signature on file> Performed By: #### PFLU #### [facility] [place], [address] CYTOLOGY, BODY FLUID / Collected: 03/18/2018 Status: F Source: PABLO CSF 9:30 AM [facility] REPOSITORY Order Comment: Specimen Source: URINE TYPE CODE TESTS RESULT OUT OF RANGE REFERENCE UNITS LAB L350.1000 SEE Normal PATHOLOGY CYTOLOGY,BF REPORT /CSF Result Comment: Specimen submitted to Anatomical Pathology Department for testing. Performed By: #### L350.1000 #### [facility] [address] [place], [address] INITAL EVALUATION (1) Observed: 11/15/2017 Status: F Source: PABLO - PT 12:30 PM [facility] REPOSITORY [facility] Physical Therapy [facility] [address] [place], [place] [address] Fax REHABILITATION SERVICES INITIAL EVALUATION MR#: [id number] Acct: [id number] Name: ELAINE CORNEJO Rep #: [id number] : 1955 62 From: Lise Mccracken MPT Referring Dr.: NICHOLE Woodard Status: REG RCR Insurance: [employer] SELF PAY INSURANCE Patient's Visit Information ELAINE [...] to be FAXED BACK to us at [phone] for Medicare purposes. Please let me know if there are questions or concerns regarding this plan of care. Physician Signature: Date: <Electronically signed by Lise Mccracken MPT> 11/15/17 1230 CC: NICHOLE Woodard; Consuelo Farrell DO Signed For Medicare only, by signing this I certify the plan of care. Physicians Signature Date L/S SPINE MIN 4 Observed: 11/05/2017 Status: F Source: GRADY VIEWS 3:08 PM [facility] REPOSITORY [facility] Imaging Services [address] [place] [address] L/S Spine Min 4 Views MR#: [id number] Acct: [id number] Name: MACJASSONELAINE J Rep #: [id number] : 1955 F 62 From: Moiz Nelson MD PCP: Rachel Jeff DO Status: REG CLI Study: L/S Spine Min 4 Views Date of Exam: 11/05/17 Exam# [id number] Ordering Dr: Mya Woodard STUDY: X-RAY - [...] , CC: NICHOLE Woodard; Rachel Jeff DO Accounts Receivable Executive: Signed PROGRESS Observed: 10/17/2017 Status: COMPLETED Source: WILDER 8:13 AM [facility] REPOSITORY HNO ID: [id number] Author: Erwin Fierro Service: (none) Author Type: [...] 2 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 FMH: FAMILY HISTORY [...] 1 capsule by mouth once daily. FROM [facility] Cholecalciferol, Vitamin D3, 2,000 unit cap Take [...] GAIT: Stable primary gait. Erwin Fierro M.D. 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 FMH: FAMILY HISTORY [...] 1 capsule by mouth once daily. FROM [facility] Cholecalciferol, Vitamin D3, 2,000 unit cap Take [...] GAIT: Stable primary gait. Erwin Fierro M.D. [facility]rological [place] Department of Neu[facility] cc: SELF Rachel Jeff MD [address] [place] [address] Referring Provider: SELF [200] Allergies As of [...] Status: F Source: PABLO CONT 11:55 AM [facility] REPOSITORY [facility] Imaging Services [address] [place] [address] Abdomen/Pelvis without Cont MR#: [id number] Acct: [id number] Name: ELAINE CORNEJO Rep #: [id number] : 1955 F 61 From: Adalberto Hurtado MD PCP: Rachel Jeff DO Status: REG CLI Study: Abdomen/Pelvis without Cont Date of Exam: 06/24/17 Exam# [id number] Ordering Dr: Mya Woodard RIVERBOAT CAPTAIN-C STUDY: CT ABDOMEN AND PELVIS WITHOUT CONTRAST [...] Adalberto Hurtado MD at 12:29 EST Tel [phone], Service support , CC: NICHOLE Woodard; Rachel Jeff DO Accounts Receivable Executive: Signed CNOV Observed: 04/26/2017 Status: COMPLETED Source: WILDER 10:00 AM [facility] REPOSITORY Office Visit (WCTRMN) CLEMENTEELAINE Nic ([id number]) 1955 F Date Time Provider Department 04/26/17 10:00 AM CONCEPCION HUANG (PIERCER OPERATOR) WCTRMN During your visit today, we recorded the following information about you: Blood pressure Weight Height 130/80 85.3 kg 1.765 m Concepcion Huang CNP 04/26/2017 10:21 AM Signed PROVIDER NOTE: Elaine Cornejo, 61 year old, 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 PCP: Syl Lane [...] 1 capsule by mouth once daily. FROM [facility] Cholecalciferol, Vitamin D3, 2,000 unit cap Take [...] Adnexa: no masses, nontender ASSESSMENT: 1. Routine CARPENTER HELPER MAINTENANCE exam 2. Symptomatic menopausal state PLAN: 1. [...] for annual and prn Concepcion Huang MSN, PIERCER OPERATOR Concepcion Huang, PIERCER OPERATOR 04/26/2017 10:01 AM Signed BONE MINERAL DENSITY [...] usual activities immediately. Referring Provider: CONCEPCION HUANG ([facility]) [[id number]] Allergies As of Date: 04/26/2017 Noted Allergy [...] age 53 [N95.1] Order(s):[facility] SCREENING [[id number]] Order #: [id number] FUTURE PREMARIN 0.45 mg tabletTake 1 tablet [...] 04/26/2017 9:57 AM >> MCKEON JOSE GUADALUPE ERNANDEZ Fri Apr 26, 2017 9:57 AM Not [...] 04/26/17 PROGRESS Observed: 04/26/2017 Status: COMPLETED Source: WILDER 9:58 AM [facility] REPOSITORY HNO ID: [id number] Author: Concepcion Perry ([place]) Kaveh Service: (none) Author Type: Nurse Practitioner Type: Progress Notes Filed: 04/26/2017 10:21 AM Note Text: PROVIDER NOTE: Elaine Monacoluhjasson, 61 year old, 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 PCP: Syl Lane [...] 1 capsule by mouth once daily. FROM [facility] Cholecalciferol, Vitamin D3, 2,000 unit cap Take [...] Adnexa: no masses, nontender ASSESSMENT: 1. Routine CARPENTER HELPER MAINTENANCE exam 2. Symptomatic menopausal state PLAN: 1. [...] for annual and prn Concepcion Huang MSN, PIERCER OPERATOR ALLERGIES ALLERGIES DATE TYPE / CODE NAME / CODE REACTION SEVERITY SOURCE 03/22/2016 DRUG VENOM-HONEY BEE RASH [facility] INGREDI/[address] [place] 848126(SN Repository ED CT) 04/04/2015 Environ/420 DUST OTHER: SEE C [facility] 384136(SNOM [address] [place] ED CT) Repository 03/26/2015 Environ/420 SEASONAL UNKNOWN [facility] 264610(SNOM ALLERGIES [address] [place] ED [address]) Repository NG/[id number] DUST [facility](SNOMED [facility]) Repository NG/[id number] SEASONAL [facility]) Repository NG/[id number] VENOM-HONEY BEE [facility] 6([facility] Health System CT) Repository ENCOUNTERS ENCOUNTERS ADMIT/DISCHARGE ACCOUNT NUMBER ADMITTING ENCOUNTER LOCATION SOURCE CLASS 03/24/2018 [id number] Ambulatory Building:[facility] [place] Practices Repository 03/18/2018 [id number] [facility] ding:LABSPEC Repository 03/18/2018 [id number] [facility] ding:LABSPEC Repository 11/13/2017/11/14/[id number] ding:PT Repository 11/06/2017 [id number] [facility] ding:MASS Repository 11/05/2017 [id number] [facility] ding:HPRAD Repository 10/17/2017/10/19/19 [id number] [address] Repository 09/02/2017 [id number] Ambulatory [facility] MEDICAL Repository CENTERBuildi ng:URAE 06/24/2017 [id number] [facility] ding:CT Repository 06/17/2017 [id number] [facility] ding:NS Repository 04/26/2017/04/29/19 [id number] Ambulatory [address] Repository FUNCTIONAL STATUS FUNCTIONAL STATUS No Functional Status Records FoundEQUIPMENT EQUIPMENT No Equipment Records FoundPAYERS PAYERS ENCOUNTER GUARANTOR PAYER SUBSCRIBER SOURCE 03/24/2018 Elaine Gonzalez [facility]: Insurance:Andrew Alberts: Repository [id number] [employer] [id number] [place] Number: [address] [place], [place] [id number] [place], [place] [address]Pwd: [phone]) Date:3047-93-11Cnck 585[address]Inb: Name:[facility] [phone] (HP) (HP)Tel: (450) [place] [phone] () [address]IY: 03/18/2018 ELAINE Lucero Primary CARLOS Shah [id number] Insurance:[facility] Number: [place], [place] [id number] Repository [address]Bnu: (330) Date:6929-63-00ET [phone] (HP) [address] [place] [address]TZ: 03/18/2018 Secondary NOT GIVENUNK [place] Insurance:SELF PAY [facility] Number: Effective Repository Date:2018-03-18 03/18/2018 ELAINE Nic Primary ELAINE Shah [id number] Insurance:SUMMA CLEMENTEDOB: [facility] Number: [id number] [id number] Repository [address]Jyg: 330) Date:2915-71-48XQ [phone] (HP) [facility] [place] [address]GF: 03/18/2018 Secondary NOT GIVENUNK [place] Insurance:SELF PAY [facility] Number: Effective Repository Date:2018-03-18 11/13/2017 ELAINE J Primary ELAINE Shah [id number] Insurance:SUMMA CLEMENTEDOB: [facility] Number: [id number] [place], [place] [id number] Repository [address]Gfd: (330) Date:6922-16-09FU [phone] (HP) [place] [address]CO: 11/13/2017 Secondary NOT GIVENUNK Pablo Insurance:SELF PAY [facility] Hospital Number: Effective Repository Date:2017-11-07 11/06/2017 ELAINE J Primary NOT GIVENUNK Pablo [id number] Insurance:SELF PAY [place] Number: Effective Repository [id number]: ([phone]) Date:2017-11-05 [phone] (HP) 11/05/2017 ELAINE Lucero Primary ELAINE Shah [id number] Insurance:SUMMA CLEMENTEDOB: [facility] Number: [id number] [place] [id number] Repository [address]Wtg: (330) Date:6076-22-16QV [phone] (HP) [address], [place] [address]KK: 11/05/2017 Secondary NOT GIVENUNK Pablo Insurance:SELF PAY [facility] Number: Effective Repository Date:2017-11-05 09/02/2017 ELAINE J Primary Insurance:[place] CARLOS Guo [facility] CenterLuhYKB: [facility] Number: [id number] [place], [place] Date: [address]Cea: (HP) 06/24/2017 ELAINE J Primary ELAINE Shah [id number] Insurance:SUMMA CLEMENTEDOB: [facility] Number: [id number] [place], [place] [id number] Repository [address]Ibw: ([phone]) Date:8888-24-79XJ [phone] (HP) [address] [place] [phone]: 06/24/2017 Secondary NOT GIVENUNK [place] Insurance:SELF PAY [facility] Number: Effective Repository Date:2017-06-24 06/17/2017 Elaine Primary Elaine Shah [id number] Insurance:SUMMA ClementeDOB: [facility] Number: [id number] [place], [place] [id number] Repository [address]Ybo: (330) Date:4233-33-54XG [phone] () [place] [address]JL: 06/17/2017 Secondary NOT GIVENUNK [place] Insurance:SELF PAY [facility] Number: Effective Repository Date:2017-06-06 SOCIAL HISTORY SOCIAL HISTORY No Social History Records FoundFAMILY HISTORY FAMILY HISTORY No Family History Records FoundADVANCE DIRECTIVES ADVANCE DIRECTIVES No Advanced Directives Records FoundINFORMATION SOURCE INFORMATION SOURCE DATE CREATED AUTHOR AUTHOR'S ORGANIZATION 04/09/2018 STEFFANY
== END ==
PROVIDERS: Family Provider Internal Medicine; PCP Internal Medicine; Referring Provider Nurse Practitioner Adult Health; Visit Provider Nurse Practitioner Adult Health
DX: R31.0 Gross hematuria (principal)
CPT/HCPCS: 88108; 88305; 88313

== ENCOUNTER → 2018-03-18 17:49 | Outpatient (CLI) | payer OTHER, SELFPAY ==
--- OUTSIDE RECORDS SUMMARY | 2018-05-14 09:40 | XMS RPT_ITS ---
:1955 Author Organization OHIP Care Team Providers Name Role Phone Concepcion Busby Attending Unavailable Concepcion Busby Referring Unavailable Juana Acosta Primary Care Unavailable Mya Woodard PLASTIC PANEL INSTALLER-C Attending Unavailable Mya Woodard PLASTIC PANEL INSTALLER-C Referring Unavailable Fast, Rachel Primary Care Unavailable Mya Woodard PLASTIC PANEL INSTALLER-C Attending Unavailable Mya Woodard PLASTIC PANEL INSTALLER-C Referring Unavailable Fast, Rachel Primary Care Unavailable Fast, Rachel Primary Care Unavailable Referred, Self Attending Unavailable Mya Woodard PLASTIC PANEL INSTALLER-C Attending Unavailable Mya Woodard PLASTIC PANEL INSTALLER-Dontae Referring Unavailable Jami, Consuelo Primary Care Unavailable Jennifer Decker Attending Unavailable Jennifer Decker Attending Unavailable Jennifer Decker Referring Unavailable Jami, Consuelo Primary Care Unavailable Consuelo Farrell DO Attending Unavailable Juana Acosta MD Referring Unavailable Jami DO Consuelo Consulting Unavailable CONCEPCION HUANG ([facility]) Attending Unavailable CONCEPCION HUANG ([facility]) Referring Unavailable NATHANIEL, ERWIN Attending Unavailable Krystina MAYFIELD Attending Unavailable Franny Jeff Referring Unavailable Franny Jeff Primary Care Unavailable Purpose Purpose PROBLEMS PROBLEMS DATE TYPE CONDITION / CODE ATTENDING STATUS SOURCE 03/25/2018 Unknown R31.0 - Jennifer Toussaint Active [facility] hematuria / [facility] R31.0(ICD-10) Hospital Repository 01/01/2018 Unknown 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 Active [place] Spondylosis PLASTIC PANEL INSTALLER-C [facility]ly [facility] without Hospital myelopathy or Repository radiculopathy, lumbosacral region / M47.817(ICD-10) 10/17/2017 Active Headache / NATHANIEL, Active [facility] R51(ICD-10) ERWIN [facility] PROCEDURES PROCEDURES No Procedure Records FoundVITAL SIGNS VITAL SIGNS No Vital Signs Records FoundRESULTS RESULTS FLUID/WASHING Observed: 03/18/2018 Status: F Source: [place] 9:[address] [facility] REPOSITORY Patient: ELAINE CORNEJO : 1955 (62/F) Acct Num: [id number] Phys: Jennifer Decker NP Unit Num: [id number] Loc: LABSPEC Specimen: [id number] Received: 03/18/18 - 1600 Spec Type: Fluid TISSUES 1 TISSUES: Urine COMMENT The specimen primarily contains benign squamous epithelial cells. Clinical correlation is suggested. CYTOLOGY GROSS Received is 5 ml of cloudy yellow fluid labeled with the patient's name and and designated per the requisition as urine. Submitted for cytology preparation. / CC:cc 03/19/18 TC:5 CPT: 74063 CYTOLOGY STUDY Slides are reviewed. DIAGNOSIS CYTOLOGY Urine for cytology (cytospin): Negative for malignant cells. See comment. AM:rg 03/20/18 HEADER OPERATION: Not noted PRE-OP DIAGNOSIS: Gross hematuria TISSUE SUBMITTED: Urine for cytology Signed Kai Kimble 03/20/18 <signature on file> Performed By: #### PFLU #### [facility] [place], [address] CYTOLOGY, BODY FLUID / Collected: 03/18/2018 Status: F Source: [place] CSF 9:[address] [facility] REPOSITORY Order Comment: Specimen Source: URINE TYPE CODE TESTS RESULT OUT OF RANGE REFERENCE UNITS LAB L350.1000 SEE Normal PATHOLOGY CYTOLOGY,BF REPORT /CSF Result Comment: Specimen submitted to Anatomical Pathology Department for testing. Performed By: #### L350.1000 #### [facility] [address] [place], [address] INITAL EVALUATION (1) Observed: 11/15/2017 Status: F Source: [place] - PT 12:[address] [facility] REPOSITORY [facility] Physical Therapy [facility] [address] [place], [place] [address] Fax REHABILITATION SERVICES INITIAL EVALUATION MR#: [id number] Acct: [id number] Name: ELAINE CORNEJO Rep #: [id number] : 1955 62 From: Lise Mccracken MPT Referring Dr.: NICHOLE Woodard Status: REG RCR Insurance: [employer] SELF PAY INSURANCE Patient's Visit Information ELAINE CORNEJO is a 62 year old F referred to Physical Therapy by NICHOLE Melchor with a diagnosis of back pain, spondylosis and muscle spasm. Date of Evaluation: 11/13/17 Physical Therapist: Lise Mccracken - Visit Plan Frequency: 2x /Week Duration: 4 Weeks Plan: 1-2X/ week due to high co-pay for extension centralization of symptoms, postural exercises, core stability with HEP - Subjective Subjective: Michael is wonderful. Sitting hurts. She is sleeping ok. She did do x-rays and they were normal. 2 weeks ago she picked up a heavy box and she felt something weird but did not feel it until a few days later. Current symptoms: riding in a car hurts and sitting hurts. When she stands up she felt a squeezing of LB and to get up to go to bathroom she had to hold onto something for awhile until it lets up but now she does not have that anymore. She does take Pilates 2 X/ week. No N AND T or weakness in the legs - Pain back pain Pain Intensity (Out of 10): 2 - Objective Gait: B hip drop with gait other [place] normal gait pattern. Able to walk on heels and on toes. LE MMT:hip flex 4/5 B, knee ext 4/5 B, knee flex B 4-/5, hip abd B 4/5, hip ext B 4-/5. +SLIMPT test B, + SLR on the R and - on the L. 2X 10 press ups... Pt's R SLUMP test was still + but improved. An additional 2 X 10 Press ups .....pt sat up and had no pain with R SLUMP test. Discussed progression of prone on elbows to press up and full press up with letting belly sag to the table. Discussed and had pt sit with a L- roll behind back and did not have pain after press ups. Discussed avoiding pilates for now with flexion and twisting activities. - Goals Goal 1:: I HEP Goal Time Frame: 4-6 Weeks Goal 2:: Abolish back pain in sitting Goal Time Frame: 4-6 Weeks Goal 3:: Abolish + SLUMP test B Goal Time Frame: 4-6 Weeks Goal 4:: Sit with upright posture during treatment sessions Goal Time Frame: 4-6 Weeks - Rehabilitation Potential Rehabilitation Potential: Good - Anticipated Interventions Patient/Client Instruction: Educate patient on: Condition, Plan of Care For the Purpose of:: To decrease pain, To increase ROM, To improve nutrient delivery to tissue, To improve muscle performance and motor function, To improve ability to perform ADL's, To increase tolerance to activity/condition/position, To improve health of tissue, To decrease soft tissue restriction, To increase flexibility/ROM Therapeutic Exercise to Include: Strength training, Body mechanics, Postural training, Dynamic Lumbar Stabilization, Andi Exercises, Scapular Strength/Stabilization For the Purpose of:: To decrease pain, To decrease swelling/inflammation, To increase ROM, To improve nutrient delivery to tissue, To improve muscle performance and motor function, To increase tolerance to activity/condition/position, To improve ability of physical actions for home/community/work/leisure, To improve health of tissue, To increase flexibility/ROM IF ES: Yes Cryotherapy (ice pack, ice massage): Yes Thermo therapy (hot pack): Yes Ultrasound (thermal/non thermal): Yes For the Purpose of:: To decrease pain, To decrease swelling/inflammation, To increase ROM, To improve nutrient delivery to tissue Thank you for the opportunity to evaluate your patient. For Medicare and Medicare HMO plans, please review the plan of care and approve it. It will need to be FAXED BACK to us at [phone] for Medicare purposes. Please let me know if there are questions or concerns regarding this plan of care. Physician Signature: Date: <Electronically signed by Lise Mccracken MPT> 11/15/17 1230 CC: NICHOLE Woodard; Consuelo Farrell DO Signed For Medicare only, by signing this I certify the plan of care. Physicians Signature Date L/S SPINE MIN 4 Observed: 11/05/2017 Status: F Source: [place] VIEWS 3:[address] [facility] REPOSITORY [facility] Imaging Services [address] [place] [address] L/S Spine Min 4 Views MR#: [id number] Acct: [id number] Name: MACJASSONELAINE J Rep #: [id number] : 1955 F 62 From: Moiz Nelson MD PCP: Rachel Jeff DO Status: REG CLI Study: L/S Spine Min 4 Views Date of Exam: 11/05/17 Exam# [id number] Ordering Dr: Mya Woodard STUDY: X-RAY - LUMBAR SPINE REASON FOR EXAM: Female, 62 years old. Low back pain TECHNIQUE: For view(s) of the lumbar spine were obtained. COMPARISON: None FINDINGS: Normal lumbar lordosis. There is no substantial scoliosis. There is a normal alignment of the vertebrae. There is multilevel endplate spondylosis of the lumbar vertebrae. There is multi-level degenerative disc disease with multi-level disc space narrowing. There is no demonstrated fracture. Previous cholecystectomy The soft tissue structures are unremarkable. RAD/L/S Spine Min 4 Views IMPRESSION: Degenerative changes of the spine, as detailed above. Electronically Signed: Satnam Nelson MD at 16:04 EDT , Service support , CC: NICHOLE Woodard; Rachel Jeff DO Dough Mixer Operator: Signed PROGRESS Observed: 10/17/2017 Status: COMPLETED Source: [place] 8:13 AM [facility] REPOSITORY HNO ID: [id number] Author: Erwin Fierro Service: (none) Author Type: Physician Type: Progress Notes Filed: 10/17/2017 8:23 AM Note Text: Neurology Follow-up Visit ASSESSMENT: 61 year old female with epilepsy. Doing well on low-dose Keppra, too sedated on higher dose. She is doing well with no breakthrough seizures. In the past she tried going off Keppra but had a partial spell. Continue Keppra 250 mg BID- needs brand ? PLAN: --->?Continue Keppra 250 mg BID ? ? --->?Follow-up: 1 year or sooner prn Last Visit: 10/17/2016 Interval Hx: Doing well. No seizures. No side effects. Getting brand Keppra. Still mild memory slips, not worse than last year. No weakness, numbness, tingling, vision changes, imbalance. PMH: PAST MEDICAL HISTORY Diagnosis Date - Epilepsy (HCC) 1993 last seizure 2007, resolved with keppra. - Family history of diabetes mellitus (DM) father - Fibroid, uterine 1993 on US 08/2014 on US submucosal 4 mm endometrium - menopause age 53 2009 - Osteopenia 03/2014 T-score -1.2 - Other and unspecified hyperlipidemia on statin - Postmenopausal atrophic vaginitis 11/2013 offered vagifem - Postmenopausal HRT (hormone replacement therapy) 11/2013 New Health Issues: No SOC: Social History Marital status: Spouse name: Carlos Years of education: 16 Number of children: 2 Occupational History Occupation Employer Comment retired primary school teacher librarian Social History Main Topics Smoking status: Never Smoker Smokeless tobacco: Never Used Alcohol use: Yes Comment: social- 2x per week,1 drink Drug use: No Sexual activity: Yes Partners with: Male Comment: was on ocp then condoms Social History Narrative Lives in [place] Son 27, daughter 30. FMH: FAMILY HISTORY Problem Relation Age of Onset - Colon Cancer Father passed from heart failure - Diabetes Father on B12 shots - healthy [OTHER] Mother - Ulcerative colitis [OTHER] Son - ocd [OTHER] Daughter low in B12 on B12 shots MEDS: Current Outpatient Prescriptions: KEPPRA 250 mg tablet Take 1 tablet by mouth twice daily. Brand name Keppra only PREMARIN 0.45 mg tablet Take 1 tablet by mouth once daily. progesterone micronized (PROMETRIUM) 200 mg capsule Take 1 capsule by mouth once daily. one po at HS with bite of food fluticasone (FLONASE) 50 mcg/actuation nasal spray Use in the nose. atorvastatin 20 mg tablet Take 20 mg by mouth daily at bedtime. ubidecarenone Q-10 50 mg capsule Take 1 capsule by mouth once daily. FROM [facility] Cholecalciferol, Vitamin D3, 2,000 unit cap Take 1 capsule by mouth once daily. one po daily No current facility-administered medications for this visit. REVIEW OF SYSTEMS: Review of system : unchanged from the previous visit or as per HPI (sleep patterns, mood, energy, appetite, stress, exercising). Physical Examination: BP 114/72 (BP Site: Left Arm, BP Position: Sitting, BP Cuff Size: Regular Adult) Pulse (!) 59 Wt 83.5 kg (184 lb) LMP 10/12/2003 SpO2 98% BMI 26.78 kg/m? GEN: Alert. NAD. Normal affect. Cooperative. HEENT: No rhinorrhea, lacrimation or conjunctival injection. Normal mucosa. NECK/BACK: Supple EXT: No cyanosis. No edema. No erythema. NEUROLOGICAL: MENTAL STATUS: A+O x 3. Attentive. Thought process and content unremarkable. Follows commands appropriately. Speech fluent. CN: II: Pupils equal III, IV, : EOMI. No ptosis present. VII: Face symmetric. VIII: No nystagmus. XI: Symmetric shoulder shrug. MOTOR: Normal tone. Normal bulk. Motor strength 5/5 throughout. CEREBELLAR: No ataxia or nystagmus. FTN and HSN intact GAIT: Stable primary gait. Erwin Fierro M.D. [facility] [place] Department of Neu[facility] cc: SELF Rachel Jeff MD [address] [address] CNOV Observed: 10/17/2017 Status: COMPLETED Source: [place] 7:40 AM [facility] REPOSITORY Office Visit (NEURMM) ELAINE CORNEJO ([id number]) 1955 F Date Time Provider Department 10/17/17 7:40 AM ERWIN FIERRO During your visit today, we recorded the following information about you: Pulse Blood pressure Weight 59/minute 114/72 83.5 kg Erwin Fierro MD 10/17/2017 8:23 AM Signed Neurology Follow-up Visit ASSESSMENT: 61 year old female with epilepsy. Doing well on low-dose Keppra, too sedated on higher dose. She is doing well with no breakthrough seizures. In the past she tried going off Keppra but had a partial spell. Continue Keppra 250 mg BID- needs brand ? PLAN: --->?Continue Keppra 250 mg BID ? ? --->?Follow-up: 1 year or sooner prn Last Visit: 10/17/2016 Interval Hx: Doing well. No seizures. No side effects. Getting brand Keppra. Still mild memory slips, not worse than last year. No weakness, numbness, tingling, vision changes, imbalance. PMH: PAST MEDICAL HISTORY Diagnosis Date - Epilepsy (HCC) 1993 last seizure 2007, resolved with keppra. - Family history of diabetes mellitus (DM) father - Fibroid, uterine 1994 on US 08/2014 on US submucosal 4 mm endometrium - menopause age 53 2009 - Osteopenia 03/2014 T-score -1.2 - Other and unspecified hyperlipidemia on statin - Postmenopausal atrophic vaginitis 11/2013 offered vagifem - Postmenopausal HRT (hormone replacement therapy) 11/2013 New Health Issues: No SOC: Social History Marital status: Spouse name: Carlos Years of education: 16 Number of children: 2 Occupational History Occupation Employer Comment retired primary school teacher librarian Social History Main Topics Smoking status: Never Smoker Smokeless tobacco: Never Used Alcohol use: Yes Comment: social- 2x per week,1 drink Drug use: No Sexual activity: Yes Partners with: Male Comment: was on ocp then condoms Social History Narrative Lives in [place] Son 27, daughter 30. FMH: FAMILY HISTORY Problem Relation Age of Onset - Colon Cancer Father passed from heart failure - Diabetes Father on B12 shots - healthy [OTHER] Mother - Ulcerative colitis [OTHER] Son - ocd [OTHER] Daughter low in B12 on B12 shots MEDS: Current Outpatient Prescriptions: KEPPRA 250 mg tablet Take 1 tablet by mouth twice daily. Brand name Keppra only PREMARIN 0.45 mg tablet Take 1 tablet by mouth once daily. progesterone micronized (PROMETRIUM) 200 mg capsule Take 1 capsule by mouth once daily. one po at HS with bite of food fluticasone (FLONASE) 50 mcg/actuation nasal spray Use in the nose. atorvastatin 20 mg tablet Take 20 mg by mouth daily at bedtime. ubidecarenone Q-10 50 mg capsule Take 1 capsule by mouth once daily. FROM [facility] Cholecalciferol, Vitamin D3, 2,000 unit cap Take 1 capsule by mouth once daily. one po daily No current facility-administered medications for this visit. REVIEW OF SYSTEMS: Review of system : unchanged from the previous visit or as per HPI (sleep patterns, mood, energy, appetite, stress, exercising). Physical Examination: BP 114/72 (BP Site: Left Arm, BP Position: Sitting, BP Cuff Size: Regular Adult) Pulse (!) 59 Wt 83.5 kg (184 lb) LMP 10/12/2003 SpO2 98% BMI 26.78 kg/m? GEN: Alert. NAD. Normal affect. Cooperative. HEENT: No rhinorrhea, lacrimation or conjunctival injection. Normal mucosa. NECK/BACK: Supple EXT: No cyanosis. No edema. No erythema. NEUROLOGICAL: MENTAL STATUS: A+O x 3. Attentive. Thought process and content unremarkable. Follows commands appropriately. Speech fluent. CN: II: Pupils equal III, IV, : EOMI. No ptosis present. VII: Face symmetric. VIII: No nystagmus. XI: Symmetric shoulder shrug. MOTOR: Normal tone. Normal bulk. Motor strength 5/5 throughout. CEREBELLAR: No ataxia or nystagmus. FTN and HSN intact GAIT: Stable primary gait. Erwin Fierro M.D. [facility] [place] Department of Neurology [facility] cc: SELF Rachel Jeff MD [address] [place] [id number] Referring Provider: SELF [200] Allergies As of Date: 10/17/2017 Noted Allergy Reaction DUST 04/04/2015 14 - Other: See Comments Comments: Environmental-sneezing SEASONAL ALLERGIES 03/26/2015 16 - Unknown VENOM-HONEY BEE 03/22/2016 2 - Rash Date Reviewed: 10/17/2017 Reviewed by: Erwin Fierro - Fully Assessed Reason for Visit: Seizures [97] Primary Visit Diagnosis:Nonintractable generalized idiopathic epilepsy without status epilepticus (HCC) [G40.309] Order(s):KEPPRA 250 mg tabletTake 1 tablet by mouth twice daily. Brand name Keppra onlyDisp: 60 tabletRfl: 11 Prescriptions as of 10/17/2017 Sig: KEPPRA 250 MG TABLET Take 1 tablet by mouth twice * PREMARIN 0.45 MG TABLET Take 1 tablet by mouth once d* PROGESTERONE MICRONIZED 200 M* Take 1 capsule by mouth once * FLUTICASONE 50 MCG/ACTUATION * Use in the nose. ATORVASTATIN 20 MG TABLET Take 20 mg by mouth daily at * COENZYME Q10 50 MG CAPSULE Take 1 capsule by mouth once * CHOLECALCIFEROL (VITAMIN D3) * Take 1 capsule by mouth once * Problem List As Of Date 10/17/2017 Noted Resolved Epilepsy (HCC) [G40.909] INVALID FOR* Routine gynecological examination [Z01.419] INVALID FOR*04/04/2015 menopause age 53 [N95.1] INVALID FOR* Postmenopausal atrophic vaginitis [N95.2] Postmenopausal HRT (hormone replacement therapy*INVALID FOR* Fibroid, uterine [D25.9] Other and unspecified hyperlipidemia [E78.5] 04/04/2015 Family history of diabetes mellitus (DM) [Z83.3] BPPV (benign paroxysmal positional vertigo) [H8*INVALID FOR* Laryngitis [J04.0] INVALID FOR* Rhinitis [J31.0] INVALID FOR* Osteopenia [M85.80] Encounter for screening mammogram for malignant*INVALID FOR*11/21/2016 Prescriptions ordered this encounter Disp Refills Start End KEPPRA 250 MG TABLET 60 t* 11 10/17/2017 10/17/2018 Route: ORAL Sig: Take 1 tablet by mouth twice daily. Brand name Keppra only Medications Discontinued During This Encounter KEPPRA 250 mg tablet 60 t* 0 09/17/2017 10/17/2017 Cmt: This prescription was filled on 09/14/2017. Any refills authorized will be placed on file. Route: ORAL Sig: Take 1 tablet by mouth twice daily. Brand name Keppra only Disc: Reason for discontinue is not on file. Disposition: Return in about 1 year (around 10/17/2018). Follow-up and Disposition History Recorded Encounter Status:Closed by ERWIN FIERRO MD on 10/17/17 ABDOMEN/PELVIS WITHOUT Observed: 06/24/2017 Status: F Source: [place] CONT 11:[address] [facility] REPOSITORY [facility] Imaging Services [address] [place] [address] Abdomen/Pelvis without Cont MR#: [id number] Acct: [id number] Name: ELAINE CORNEJO Rep #: [id number] : 1955 F 61 From: Adalberto Hurtado MD PCP: Rachel Jeff DO Status: REG CLI Study: Abdomen/Pelvis without Cont Date of Exam: 06/24/17 Exam# [id number] Ordering Dr: Mya Woodard PLASTIC PANEL INSTALLER-C STUDY: CT ABDOMEN AND PELVIS WITHOUT CONTRAST REASON FOR EXAM: Female, 61 years old. Mid abdominal pain and hematuria. RADIATION DOSAGE (If Supplied By Facility): CTDIvol = ( 10.50 ) mGy, DLP = ( 548.12 ) mGycm TECHNIQUE: Transaxial images were obtained from the dome of the diaphragm to the symphysis pubis without oral contrast, and without intravenous contrast. Sagittal and coronal images were reconstructed. Individualized dose optimization techniques were used for this CT. COMPARISON: None. FINDINGS: The visualized lung bases are unremarkable. The visualized portions of the heart are within normal limits. There is a 1.3 cm cyst in the superior aspect of the right lobe of the liver. There are surgical clips in the gallbladder fossa consistent with a prior cholecystectomy. Normal spleen. Normal pancreas. Normal bilateral adrenal glands. 2 tiny nonobstructive intrarenal calculi are seen in the lower pole calyx of the right kidney. 2 tiny nonobstructive calculi are seen in the lower pole calyx of the left kidney. There is a small hiatal hernia. Normal small intestine. Normal colon. The appendix is visualized and appears normal. Normal abdominal aorta. Normal inferior vena cava. Normal retroperitoneum. Normal urinary bladder. There is a 2.3 cm x 3.4 cm cyst in the left ovary. Normal abdominal wall. There are degenerative changes of the visualized lumbar spine. CT/Abdomen/Pelvis without Cont IMPRESSION: Small bilateral nonobstructive intrarenal calculi. No obstructive uropathy is seen. 2.3 cm x 3.4 cm left ovarian cyst. Electronically Signed: Adalberto Hurtado MD at 12:29 EST Tel [phone], Service support , CC: NICHOLE Woodard; Rachel Jeff DO Dough Mixer Operator: Signed CNOV Observed: 04/26/2017 Status: COMPLETED Source: [place] 10:00 AM [facility] REPOSITORY Office Visit (WCTRMN) CLEMENTEELAINE Nic ([id number]) 1955 F Date Time Provider Department 04/26/17 10:00 AM CONCEPCION HUANG ([facility]) [facility]CTRMN During your visit today, we recorded the following information about you: Blood pressure Weight Height 130/80 85.3 kg 1.765 m Concepcion Huang CNP 04/26/2017 10:21 AM Signed PROVIDER NOTE: Elaine Cornejo, 61 year old, here for an annual redye hand exam Patient's last menstrual period was 10/12/2003. Obstetric History T2 L2 SAB0 TAB0 Ectopic0 Multiple0 Live Births0 Comment: Menarche 11, FFTP 26. Breast fed for a ANDlt;6 weeks both pregnancies. Two vaginal deliveries. Was on OCPs before children born. Did well on. Menopause onset: 53 PostMenopausal Bleeding: no HRT: Premarin and prometrium BDS:04/06 doesn't have the results MM04/06 neg Hx of Abnormal MMG, biopsies, ca: Colonoscopy: 04/2010 Last PAP: 04/06 HX HPV: no HX of dysplasia: no Calcium Intake: 4 servings/day, vitamin D2982DQ/day Exercise: 2x/ pilates and walking PAST MEDICAL HISTORY Diagnosis Date - Epilepsy (HCC) 1993 last seizure 2007, resolved with keppra. - Family history of diabetes mellitus (DM) father - Fibroid, uterine 1993 on US 08/2014 on US submucosal 4 mm endometrium - menopause age 53 2009 - Osteopenia 03/2014 T-score -1.2 - Other and unspecified hyperlipidemia on statin - Postmenopausal atrophic vaginitis 11/2013 offered vagifem - Postmenopausal HRT (hormone replacement therapy) 11/2013 PAST SURGICAL HISTORY Procedure Laterality Date - HYSTEROSCOPY 08/[address] Barahona insufficient tissue difficulty voiding neg UA for urodynamics insufficient tissue neg bx - REMOVAL GALLBLADDER 1995 - REMOVAL OF TONSILS,11+ Y/O - REPAIR SLIDING INGUINAL HERNIA age 19's FAMILY HISTORY Problem Relation Age of Onset - Colon Cancer Father passed from heart failure - Diabetes Father on B12 shots - healthy [OTHER] Mother - Ulcerative colitis [OTHER] Son - ocd [OTHER] Daughter low in B12 on B12 shots Relation Status Comments Fa Mo Son Kevin Social History Marital status: Spouse name: Carlos Years of education: 16 Number of children: 2 Occupational History Occupation Employer Comment retired primary school teacher librarian Social History Main Topics Smoking status: Never Smoker Smokeless status: Never Used Alcohol use: Yes Comment: social- 2x per week Drug use: No Sexual activity: Yes Partners with: Male Comment: was on ocp then condoms Social History Narrative Lives in [place] Son 27, daughter 30. PCP: Syl Lane MD Current Outpatient Prescriptions on File Prior to Visit: fluticasone (FLONASE) 50 mcg/actuation nasal spray Use in the nose. KEPPRA 250 mg tablet Take 1 tablet by mouth twice daily. Brand name Keppra only PREMARIN 0.45 mg tablet Take 1 tablet by mouth once daily. progesterone micronized (PROMETRIUM) 200 mg capsule Take 1 capsule by mouth once daily. one po at HS with bite of food atorvastatin 20 mg tablet Take 20 mg by mouth daily at bedtime. ubidecarenone Q-10 50 mg capsule Take 1 capsule by mouth once daily. FROM [facility] Cholecalciferol, Vitamin D3, 2,000 unit cap Take 1 capsule by mouth once daily. one po daily VITAMIN B COMPLEX (SUPER B COMPLEX ORAL) Take by mouth. No current facility-administered medications on file prior to visit. REVIEW OF SYSTEMS: General: denies changes in health status, good appetite, no significant weight changes, no fatigue, SKIN: denies rashes, lesions, or pruritis HEENT: denies vision/ hearing changes BREAST: dnies masses,lumps, pain, skin changes or nipple discharge, does domonthly SBE RESPIRATORY: denies cough, wheeze, SOB CARDIAC/CIRC: denies edema, heart murmurs, or valve disease, no history of DVT GI: denies pain,bloating, constipation, diarrhea, N/V : denies dysuria, frequency, urgency, leaking, nocturia, denies vaginal irritation, odor, lesions, pruritis or discharge denies vaginal dryness PHYSICAL EXAMINATION: BP 130/80 Ht 5' 9.5ANDquot; (1.77m) Wt 188 lb (85.3kg) LMP 10/12/2003 BMI 27.37 kg/(m2). GENERAL APPEARANCE: 61 year old, , well groomed, cooperative and pleasant, AANDamp;o X3, nad HEENT:normocephalic, neck supple THYROID: no masses, within normal limits BREASTS: symmetrical, no masses, no skin changes, dimpling, retractions,or thickening, no nipple discharge, no axillary or supraclavicular lymphadenopathy ABDOMEN:abdomen soft, nontender, no masses, no hepatosplenomegaly, no suprapubic tenderness PELVIC EXAMINATION: BUS:no discharge,swelling, tenderness or masses Labia: no masses, no lesions, no erythema, no thickening Vagina: no lesions or erythema, no discharge, cervix: no discharge, no erythema, no CMT Uterus: smooth, mobile, nontender, no masses Adnexa: no masses, nontender ASSESSMENT: 1. Routine TRANSLATOR AND INTERPRETER exam 2. Symptomatic menopausal state PLAN: 1. Pap/HPV up to date 2. Mammogram-ordered 3. Bone Density Scan-PCP orders this 4. Refilled the premarin and the prometrium for her 5. Aerobic and weight bearing exercise encouraged 6. Increase Calcium intake to 1500 mg/day and Vitamin D to 2000 IU/day by diet ANDamp;/or supplement 7. See PCP for labs/immunizatons 8RTC for annual and prn Concepcion Huang MSN, STONE SANDBLASTER Concepcion Huang, STONE SANDBLASTER 04/26/2017 10:01 AM Signed BONE MINERAL DENSITY PATIENT INSTRUCTIONS Bone mineral density testing measures the amount of calcium in certain parts of your bones. This information determines how strong your bones are. The test is used to detect osteoporosis, a disease in which the bone's mineral content and density are low, increasing a person's risk of fractures. The lumbar spine (lower back) and the hip are the skeletal sites usually examined. For the test, remember that: 1. You cannot take this test if you are . 2. Eat a normal diet on the day of the test. 3. Take your medications as you normally would. 4. DO NOT take calcium supplements (such as Tums) for 24 hours before the test. 5. On the day of the test, leave valuables (jewelry or credit cards) at home. 6. The test should be performed prior to oral, rectal or IV contrast studies, or at least 7 days after any of these studies. For the test, you may be asked to wear a hospital gown. You will lie on your back, on a padded table, in a comfortable position. Generally, you can resume your usual activities immediately. Referring Provider: CONCEPCION HUANG ([facility]) [[id number]] Allergies As of Date: 04/26/2017 Noted Allergy Reaction DUST 04/04/2015 14 - Other: See Comments Comments: Environmental-sneezing SEASONAL ALLERGIES 03/26/2015 16 - Unknown VENOM-HONEY BEE 03/22/2016 2 - Rash Date Reviewed: 04/26/2017 Reviewed by: Jose Guadalupe Mckeon Ma - Fully Assessed Reason for Visit: Established Patient [175] Cmt: annual Primary Visit Diagnosis:Encounter for gynecological examination without abnormal finding [Z01.419] Other Visit Diagnoses:Screening for breast cancer [Z12.31] Encounter for screening for osteoporosis [Z13.820] Disorder of bone and cartilage [M89.9, M94.9] Symptomatic menopausal or female climacteric states [N95.1] Postmenopausal HRT (hormone replacement therapy) [Z79.890] menopause age 53 [N95.1] Order(s):[facility] SCREENING [[id number]] Order #: [id number] FUTURE PREMARIN 0.45 mg tabletTake 1 tablet by mouth once daily.Disp: 90 tabletRfl: 4 progesterone micronized (PROMETRIUM) 200 mg capsuleTake 1 capsule by mouth once daily. one po at HS with bite of foodDisp: 90 capsuleRfl: 4 Prescriptions as of 04/26/2017 Sig: PREMARIN 0.45 MG TABLET Take 1 tablet by mouth once d* PROGESTERONE MICRONIZED 200 M* Take 1 capsule by mouth once * FLUTICASONE 50 MCG/ACTUATION * Use in the nose. KEPPRA 250 MG TABLET Take 1 tablet by mouth twice * ATORVASTATIN 20 MG TABLET Take 20 mg by mouth daily at * COENZYME Q10 50 MG CAPSULE Take 1 capsule by mouth once * CHOLECALCIFEROL (VITAMIN D3) * Take 1 capsule by mouth once * Medication notes this encounter SUPER B COMPLEX ORAL >> Jose Guadalupeyoel Mckeon Ma 04/26/2017 9:57 AM >> MCKEON JOSE GUADALUPE ERNANDZE Fri Apr 26, 2017 9:57 AM Not taking Problem List As Of Date 04/26/2017 Noted Resolved Epilepsy (HCC) [G40.909] INVALID FOR* Routine gynecological examination [Z01.419] INVALID FOR*04/04/2015 menopause age 53 [N95.1] INVALID FOR* Postmenopausal atrophic vaginitis [N95.2] Postmenopausal HRT (hormone replacement therapy*INVALID FOR* Fibroid, uterine [D25.9] Other and unspecified hyperlipidemia [E78.5] 04/04/2015 Family history of diabetes mellitus (DM) [Z83.3] BPPV (benign paroxysmal positional vertigo) [H8*INVALID FOR* Laryngitis [J04.0] INVALID FOR* Rhinitis [J31.0] INVALID FOR* Osteopenia [M85.80] Encounter for screening mammogram for malignant*INVALID FOR*11/21/2016 Other instructions from your clinician: BONE MINERAL DENSITY PATIENT INSTRUCTIONS Bone mineral density testing measures the amount of calcium in certain parts of your bones. This information determines how strong your bones are. The test is used to detect osteoporosis, a disease in which the bone's mineral content and density are low, increasing a person's risk of fractures. The lumbar spine (lower back) and the hip are the skeletal sites usually examined. For the test, remember that: 1. You cannot take this test if you are . 2. Eat a normal diet on the day of the test. 3. Take your medications as you normally would. 4. DO NOT take calcium supplements (such as Tums) for 24 hours before the test. 5. On the day of the test, leave valuables (jewelry or credit cards) at home. 6. The test should be performed prior to oral, rectal or IV contrast studies, or at least 7 days after any of these studies. For the test, you may be asked to wear a hospital gown. You will lie on your back, on a padded table, in a comfortable position. Generally, you can resume your usual activities immediately. Prescriptions ordered this encounter Disp Refills Start End PREMARIN 0.45 MG TABLET 90 t* 4 04/26/2017 Route: ORAL Sig: Take 1 tablet by mouth once daily. PROGESTERONE MICRONIZED 200 MG CAPSU* 90 c* 4 04/26/2017 Route: ORAL Sig: Take 1 capsule by mouth once daily. one po at HS with bite of food Medications Discontinued During This Encounter VITAMIN B COMPLEX (SUPER B COMPLEX O* 04/26/2017 Class: Historical Med Route: ORAL Sig: Take by mouth. Disc: Reason for discontinue is not on file. PREMARIN 0.45 mg tablet 90 t* 4 04/17/2016 04/26/2017 Route: ORAL Sig: Take 1 tablet by mouth once daily. Disc: Reason for discontinue is not on file. progesterone micronized (PROMETRIUM)* 90 c* 4 04/05/2016 04/26/2017 Route: ORAL Sig: Take 1 capsule by mouth once daily. one po at HS with bite of food Disc: Reason for discontinue is not on file. Encounter Status:Closed by CONCEPCION HUANG CNP on 04/26/17 PROGRESS Observed: 04/26/2017 Status: COMPLETED Source: [place] 9:58 AM CLINIC [facility] [place] REPOSITORY HNO ID: [id number] Author: Concepcion Perry ([place]) Kaveh Service: (none) Author Type: Nurse Practitioner Type: Progress Notes Filed: 04/26/2017 10:21 AM Note Text: PROVIDER NOTE: Elaine Monacoluhjasson, 61 year old, here for an annual redye hand exam Patient's last menstrual period was 10/12/2003. Obstetric History T2 L2 SAB0 TAB0 Ectopic0 Multiple0 Live Births0 Comment: Menarche 11, FFTP 26. Breast fed for a <6 weeks both pregnancies. Two vaginal deliveries. Was on OCPs before children born. Did well on. Menopause onset: 53 PostMenopausal Bleeding: no HRT: Premarin and prometrium BDS:04/06 doesn't have the results MM04/06 neg Hx of Abnormal MMG, biopsies, ca: Colonoscopy: 04/2010 Last PAP: 04/06 HX HPV: no HX of dysplasia: no Calcium Intake: 4 servings/day, vitamin [id number]/day Exercise: 2x/ pilates and walking PAST MEDICAL HISTORY Diagnosis Date - Epilepsy (HCC) 1993 last seizure 2007, resolved with keppra. - Family history of diabetes mellitus (DM) father - Fibroid, uterine 1993 on US 08/2014 on US submucosal 4 mm endometrium - menopause age 53 2009 - Osteopenia 03/2014 T-score -1.2 - Other and unspecified hyperlipidemia on statin - Postmenopausal atrophic vaginitis 11/2013 offered vagifem - Postmenopausal HRT (hormone replacement therapy) 11/2013 PAST SURGICAL HISTORY Procedure Laterality Date - HYSTEROSCOPY 08/[address] Barahona insufficient tissue difficulty voiding neg UA for urodynamics insufficient tissue neg bx - REMOVAL GALLBLADDER 1995 - REMOVAL OF TONSILS,12+ Y/O - REPAIR SLIDING INGUINAL HERNIA age 19's FAMILY HISTORY Problem Relation Age of Onset - Colon Cancer Father passed from heart failure - Diabetes Father on B12 shots - healthy [OTHER] Mother - Ulcerative colitis [OTHER] Son - ocd [OTHER] Daughter low in B12 on B12 shots Relation Status Comments Fa Mo Son Kevin Social History Marital status: Spouse name: Carlos Years of education: 16 Number of children: 2 Occupational History Occupation Employer Comment retired primary school teacher librarian Social History Main Topics Smoking status: Never Smoker Smokeless status: Never Used Alcohol use: Yes Comment: social- 2x per week Drug use: No Sexual activity: Yes Partners with: Male Comment: was on ocp then condoms Social History Narrative Lives in [place] Son 27, daughter 30. PCP: Syl Lane MD Current Outpatient Prescriptions on File Prior to Visit: fluticasone (FLONASE) 50 mcg/actuation nasal spray Use in the nose. KEPPRA 250 mg tablet Take 1 tablet by mouth twice daily. Brand name Keppra only PREMARIN 0.45 mg tablet Take 1 tablet by mouth once daily. progesterone micronized (PROMETRIUM) 200 mg capsule Take 1 capsule by mouth once daily. one po at HS with bite of food atorvastatin 20 mg tablet Take 20 mg by mouth daily at bedtime. ubidecarenone Q-10 50 mg capsule Take 1 capsule by mouth once daily. FROM [facility] Cholecalciferol, Vitamin D3, 2,000 unit cap Take 1 capsule by mouth once daily. one po daily VITAMIN B COMPLEX (SUPER B COMPLEX ORAL) Take by mouth. No current facility-administered medications on file prior to visit. REVIEW OF SYSTEMS: General: denies changes in health status, good appetite, no significant weight changes, no fatigue, SKIN: denies rashes, lesions, or pruritis HEENT: denies vision/ hearing changes BREAST: dnies masses,lumps, pain, skin changes or nipple discharge, does domonthly SBE RESPIRATORY: denies cough, wheeze, SOB CARDIAC/CIRC: denies edema, heart murmurs, or valve disease, no history of DVT GI: denies pain,bloating, constipation, diarrhea, N/V : denies dysuria, frequency, urgency, leaking, nocturia, denies vaginal irritation, odor, lesions, pruritis or discharge denies vaginal dryness PHYSICAL EXAMINATION: BP 130/80 Ht 5' 9.5 (1.77m) Wt 188 lb (85.3kg) LMP 10/12/2003 BMI 27.37 kg/(m2). GENERAL APPEARANCE: 61 year old, , well groomed, cooperative and pleasant, AANDo X3, nad HEENT:normocephalic, neck supple THYROID: no masses, within normal limits BREASTS: symmetrical, no masses, no skin changes, dimpling, retractions,or thickening, no nipple discharge, no axillary or supraclavicular lymphadenopathy ABDOMEN:abdomen soft, nontender, no masses, no hepatosplenomegaly, no suprapubic tenderness PELVIC EXAMINATION: BUS:no discharge,swelling, tenderness or masses Labia: no masses, no lesions, no erythema, no thickening Vagina: no lesions or erythema, no discharge, cervix: no discharge, no erythema, no CMT Uterus: smooth, mobile, nontender, no masses Adnexa: no masses, nontender ASSESSMENT: 1. Routine TRANSLATOR AND INTERPRETER exam 2. Symptomatic menopausal state PLAN: 1. Pap/HPV up to date 2. Mammogram-ordered 3. Bone Density Scan-PCP orders this 4. Refilled the premarin and the prometrium for her 5. Aerobic and weight bearing exercise encouraged 6. Increase Calcium intake to 1500 mg/day and Vitamin D to 2000 IU/day by diet AND/or supplement 7. See PCP for labs/immunizatons 8RTC for annual and prn Concepcion Huang MSN, STONE SANDBLASTER ALLERGIES ALLERGIES DATE TYPE / CODE NAME / CODE REACTION SEVERITY SOURCE 03/22/2016 DRUG VENOM-HONEY BEE RASH [facility] INGREDI/[address] [id number](SN Repository ED CT) 04/04/2015 Environ/420 DUST OTHER: SEE C [facility] [id number](SNOM [address]) Repository 03/26/2015 Environ/420 SEASONAL UNKNOWN [facility] 306357(SNOM ALLERGIES [address]) Repository NG/[id number] DUST [facility](SNOMED [facility]) Repository NG/[id number] SEASONAL [facility] Repository NG/[id number] VENOM-HONEY BEE [facility] 6([facility]) Repository ENCOUNTERS ENCOUNTERS ADMIT/DISCHARGE ACCOUNT NUMBER ADMITTING ENCOUNTER LOCATION SOURCE CLASS 03/24/2018 [id number] Ambulatory Building:[facility] [place] Practices Repository 03/18/2018 [id number] [facility] ding:LABSPEC Repository 03/18/2018 [id number] [facility] ding:LABSPEC Repository 11/13/2017/11/14/[id number] ding:PT Repository 11/06/2017 [id number] [facility] ding:MASS Repository 11/05/2017 [id number] [facility] ding:HPRAD Repository 10/17/2017/10/19/19 [id number] Ambulatory [address] Repository 09/02/2017 [id number] Ambulatory [facility] MEDICAL Repository CENTERBuildi ng:URAE 06/24/2017 [id number] [facility] ding:CT Repository 06/17/2017 [id number] [facility] ding:NS Repository 04/26/2017/04/29/19 [id number] Ambulatory [address] Repository FUNCTIONAL STATUS FUNCTIONAL STATUS No Functional Status Records FoundEQUIPMENT EQUIPMENT No Equipment Records FoundPAYERS PAYERS ENCOUNTER GUARANTOR PAYER SUBSCRIBER SOURCE 03/24/2018 Elaine Gonzalez [facility] [place]: Insurance:Anderw Alberts: Repository [id number] [employer] [id number] [place] Number: [address] [place], [place] [id number] [address]S[place], [place] [address]Eee: ([phone]) Date:7810-29-99Slmc 78[address]Pex: Name:[facility] [phone] (HP) (HP)Tel: ([phone]) [place] [phone] () 32631PQ: 03/18/2018 ELAINE Lucero Primary CARLOS Shah [id number] Insurance:[facility] Number: [place], [place] [id number] Repository [address]Zpb: (330) Date:6024-62-18MF [phone] (HP) [address] [place] [phone]: 03/18/2018 Secondary NOT GIVENUNK [place] Insurance:SELF PAY [facility] Number: Effective Repository Date:2018-03-18 03/18/2018 ELAINE Nic Primary ELAINE Shah [id number] Insurance:SUMMA CLEMENTEDOB: [facility] Number: [id number], [place] [id number] Repository [address]Sek: 330) Date:1215-77-47XQ [phone] (HP) [facility] [address]GV: 03/18/2018 Secondary NOT GIVENUNK [place] Insurance:SELF PAY [facility] Number: Effective Repository Date:2018-03-18 11/13/2017 ELAINE J Primary ELAINE Shah [id number] Insurance:SUMMA CLEMENTEDOB: [facility] Number: [id number], [place] [id number] Repository [address]Kap: (330) Date:4005-09-59JN [phone] (HP) [place] [address]NX: 11/13/2017 Secondary NOT GIVENUNK [place] Insurance:SELF PAY [facility] Number: Effective Repository Date:2017-11-07 11/06/2017 ELAINE J Primary NOT GIVENUNK [place] [id number] Insurance:SELF PAY [place] Number: Effective Repository [phone]: (330) Date:2017-11-05 [phone] (HP) 11/05/2017 ELAINE Lucero Primary ELAINE Shah [id number] Insurance:SUMMA CLEMENTEDOB: [facility] Number: [id number], [place] [id number] Repository [address]Qan: ([phone]) Date:8813-79-41OE [phone] (HP) [address], [place] [address]LY: 11/05/2017 Secondary NOT GIVENUNK Pablo Insurance:SELF PAY [facility] Number: Effective Repository Date:2017-11-05 09/02/2017 ELAINE J Primary Insurance:[place] CARLOS Guo [facility] HospitalLuhYKB: [facility] Number: [id number] [id number] [place], [place] Date: [address]Eit: (HP) 06/24/2017 ELAINE J Primary ELAINE Shah [id number] Insurance:SUMMA CLEMENTEDOB: [facility] Number: [id number], [place] [id number] Repository [address]Yug: (330) Date:3074-68-75MO [phone] (HP) [address] [place] [phone]: 06/24/2017 Secondary NOT GIVENUNK [place] Insurance:SELF PAY [facility] Number: Effective Repository Date:2017-06-24 06/17/2017 Elaine Primary Elaine Shah [id number] Insurance:SUMMA ClementeDOB: [facility] Number: [id number], [place] [id number] Repository [address]Tlr: ([phone]) Date:6189-85-10VF [phone] () [place] [address]ST: 06/17/2017 Secondary NOT GIVENUNK [place] Insurance:SELF PAY [facility] Number: Effective Repository Date:2017-06-06 SOCIAL HISTORY SOCIAL HISTORY No Social History Records FoundFAMILY HISTORY FAMILY HISTORY No Family History Records FoundADVANCE DIRECTIVES ADVANCE DIRECTIVES No Advanced Directives Records FoundINFORMATION SOURCE INFORMATION SOURCE DATE CREATED AUTHOR AUTHOR'S ORGANIZATION 04/08/[address] [facility]
--- OUTSIDE RECORDS SUMMARY | 2018-05-14 09:40 | XMS RPT_ITS | Continuity of Care Document ---
:1955 Author Organization [facility] Address [facility] [address] [place] [address] Phone Care Team Providers Name Role Phone Consuelo Farrell DO Unavailable Gerry Moreland Unavailable Dr. Heraclio Bhagat Unavailable Dr. Amilcar Cramer Unavailable Nic Villalobos MD Unavailable Long Marcela SANDRA Unavailable Unavailable Mya Woodard Unavailable Unavailable BOAZ Porras Unavailable Unavailable Roberto Donald Unavailable Unavailable Jes Duarte Unavailable Unavailable Unavailable Unavailable Problems Name Dates Details Acute cystitis without hematuria (N30.00, 595.0) Status: Active Allergic rhinitis (J30.9, 477.9) Status: Active Back pain (M54.9, 724.5) Status: Active Bladder prolapse, female, acquired (N81.10, 618.01) Status: Active BMI 26.0-26.9,adult (Z68.26, V85.22) Status: Active BMI 27.0-27.9,adult (Z68.27, V85.23) Status: Active Cerumen impaction (H61.20, 380.4) Comments: Bilateral Status: Active Current nonsmoker (Renamed from Current non-smoker) (Z78.9, V49.89) Status: Active Deliveries (Parity) Comments: 2 Status: Active Encounter for general adult medical examination with abnormal findings (Z00.01, V70.0) Status: Active Encounter for screening mammogram for breast cancer (Renamed from Encounter for screening mammogram for malignant neoplasm of breast) (Z12.31, V76.12) Status: Active Enterococcus faecalis infection (B95.2, 041.04) Status: Active Family history of colon cancer (Z80.0, V16.0) Comments: colonscopy 2013 Status: Active 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 Makayla Fierro F neurologist in [place], had head injuries in past. at first thought partials were hormones then had grand mals. Status: Active Hematuria (R31.9, 599.70) Status: Active Hematuria, microscopic (R31.29, 599.72) Comments: had scope -- saw cody -- scope was normal so is blood from know tiny stones that are followed-- or other eitology --if scope noraml i doubt will call cody office for consult letter Status: Active Hot flash, menopausal (N95.1, 627.2) Comments: working with Dr. Rachelle Castro F Status: Active Hyperlipidemia (E78.5, 272.4) Status: Active Hypertriglyceridemia (E78.1, 272.1) Comments: diet and exrcise intervention ove summer before adding more meds for TG Status: Active Impaired fasting glucose (R73.01, 790.21) Status: Active Kidney stones (N20.0, 592.0) Comments: tiny and followed Status: Active Muscle spasm (M62.838, 728.85) Status: Active Numerous moles (D22.9, 216.9) Status: Active Osteopenia (M85.80, 733.90) Comments: better normal 7-16 reveiwed with patient Status: Active Overweight (E66.3, 278.02) Comments: sugar addiction and wants to be healthy talka bout lean muscle mass and keepign this. talk about 21 days cleanse. Status: Active Pregnancies () Comments: 2 Status: Active Sleep disturbance (G47.9, 780.50) Comments: snore. then up at night. need to get hinm sleep Status: Active Spondylosis, lumbosacral (M47.817, 721.3) Status: Active Type II diabetes mellitus, well controlled (E11.9, 250.00) Status: Active Uterine fibroid (D25.9, 218.9) Status: Active UTI (urinary tract infection) (N39.0, 599.0) Status: Active UTI (urinary tract infection) (N39.0, 599.0) Status: Active Medications Name Dates Details Atorvastatin Calcium 20 MG Oral Tablet 1 Tablet qd for 90 days Quantity: 90 {Tablet} Refills: 3 Ordered:04-Mar-2018 Concepcion Busby CNP Start : 04-Mar-2018 Active COQ10, 50MG (Oral Capsule) 1 qd (50 MG) Active Keppra 500 MG Oral Tablet 1/2 Tablet bid for 0 days Quantity: 60 {Tablet} Refills: 3 Ordered:29-May-2017 Concepcion Busby CNP Start : 29-May-2017 Active Dispense as Written Comments:LUCASDr. Kerr at [facility] cosme Premarin 0.45 MG Oral Tablet 1 Tablet qd for 30 days Quantity: 30 {Tablet} Refills: 0 Ordered:20-Sep-2017 Maura Farrell DO, DO, Kathleen Start : 20-Sep-2017 Active Probiotic & Acidophilus Ex St Oral Capsule daily Active Prometrium 200 MG Oral Capsule 1 Capsule qd for 0 days Quantity: 30 {Capsule} Refills: 0 Ordered:29-May-2017 Concepcion Busby CNP Start : 29-May-2017 Active Comments:Dr. Castro [facility] VITAMIN D3, 2000UNIT (Oral Capsule) 1 qd (2000 UNIT) Active Amoxicillin-Pot Clavulanate 875-125 MG Oral Tablet 1 (one) Tablet PO BID for 14 days Quantity: 28 {Tablet} Refills: 0 Ordered:07-May-2017 Mya Woodard Start : 07-May-2017 End : 21-May-2017 Inactive Comments:Take with food B COMPLEX (Oral Capsule) 1 qd Inactive Benzonatate 200 MG Oral Capsule 1 (one) Capsule TID PRN for 0 days Quantity: 21 {Capsule} Refills: 0 Ordered:29-May-2017 Lise Cruz LPN Start : 07-May-2017 End : 29-May-2017 Inactive Ciprofloxacin HCl 500 MG Oral Tablet 1 (one) Tablet bid for 3 days Quantity: 6 {Tablet} Refills: 0 Ordered:09-Jul-2017 Juaan Acosta MD Start : 09-Jul-2017 End : 12-Jul-2017 Inactive Comments:needs for additional 3 days Estrace 0.1 MG/GM Vaginal Cream 1 (one) Cream Cream 1 gm PV 1-2 times a week for 0 days Quantity: 1 {Tube} Refills: 3 Ordered:20-Sep-2017 Mya Porras LPN Start : 22-Sep-2015 End : 20-Sep-2017 Inactive Fish Oil Burp-Less 500 MG Oral Capsule 1 (one) Capsule Capsule daily for 0 days Quantity: 30 {Capsule} Refills: 0 Ordered:30-Sep-2017 Mya Porras LPN Start : 29-May-2017 End : 30-Sep-2017 Inactive Macrobid 100 MG Oral Capsule 1 (one) Capsule bid for 0 days Quantity: 20 {Capsule} Refills: 0 Ordered:29-May-2017 Lise Cruz LPN Start : 23-May-2017 End : 29-May-2017 Inactive Nitrofurantoin Monohyd Macro 100 MG Oral Capsule 1 (one) Capsule PO BID for 7 days Quantity: 14 {Capsule} Refills: 0 Ordered:22-Jul-2017 Mya Woodard Start : 22-Jul-2017 End : 29-Jul-2017 Inactive SALMON OIL-1000, 200MG (Oral Capsule) 1 qd (200 MG) Inactive Allergies and Adverse Reactions Name Dates Details No Known Allergies (Allergy) Onset: 29-Aug-2015 Status: Active Past Medical History Name Dates Details Abdominal pain in female (R10.9, 789.00) Status: Inactive as of 20-Sep-2017 BMI 27.0-27.9,adult (Z68.27, V85.23) Status: Inactive as of 29-May-2017 Cough (R05, 786.2) Status: Inactive as of 29-May-2017 Dyspareunia (625.0) Comments: is now back on oral ERT and better Status: Resolved as of 17-Nov-2015 Facial pressure (R68.89, 780.99) Status: Inactive as of 20-Sep-2017 Hematuria (R31.9, 599.70) Status: Inactive as of 20-Sep-2017 History of diarrhea (Z87.898, V12.79) Comments: Colonoscopy 2016 by [facility], treated for UTI and symptoms resolved will monitor Status: Inactive as of 20-Sep-2017 PMB (postmenopausal bleeding) (N95.0, 627.1) Comments: had work up and negative with biopsy and US. 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) Status: Inactive as of 20-Sep-2017 Sensory urge incontinence (N39.41, 788.31) Comments: better after atb Status: Resolved as of 17-Nov-2015 Sinusitis, bacterial (J32.9, 473.9) Status: Inactive as of 29-May-2017 Urgency of urination (R39.15, 788.63) Status: Inactive as of 20-Sep-2017 Urine frequency (R35.0, 788.41) Status: Inactive as of 20-Sep-2017 Procedures Procedure Dates Details Anal Fissure repair Completed Comments: x2 Cholecystectomy Completed Comments: Lasik Surgery Completed Comments: June 2015 Tonsillectomy Completed Comments: Date Value Details 15-Nov-2017 Inital Evaluation (1) - PT Result: Comments: See Note; NOTES: [facility] Physical [facility]. [address] [place] [address] Fax REHABILITATION SERVICES INITIAL EVALUATION MR#: [id number] Acct: [id number] Name: ELAINE CORNEJO Rep #: [id number] : 1955 62 From: Lise Mccracken MPT Referring Dr.: NICHOLE Woodard Status: REG RCR Insurance: [employer] SELF PAY INSURANCE Patient's Visit Information ELAINE CORNEJO is a 62 year old F referred to Physical Therapy by NICHOLE Melchor with a diagnosis of back pain, spondylosis and muscle spasm. Da te of Evaluation: 11/13/17 Physical Therapist: Lise Mccracken - Visit Plan Frequency: 2x /Week Duration: 4 Weeks Plan: 1-2X/ week due to high co-pay for extension centralization of symptoms, postural e xercises, core stability with HEP - Subjective Subjective: [place] is wonderful. Sitting hurts. She is sleeping [...] had no pain with R SLUMP test. Di scussed progression of prone on elbows to press up and full press up with letting belly sag to the table. Discussed and had pt sit with a L-roll behind back and did not have pain after press ups. Discus sed avoiding pilates for now with flexion and [...] Rehabilitation Potential Rehabilitation Potential: Good - Anticipated I nterventions Patient/Client Instruction: Educate patient on: Condition, Plan of Care For the Purpose of:: To decrease pain, To increase ROM, To improve nutrient delivery to tissue, To improve muscle per formance and motor function, To improve ability to perform ADL's, To increase tolerance to activity/condition/position, To improve health of tissue, To decrease soft tissue restriction, To increase flex ibility/ROM Therapeutic Exercise to Include: Strength training, Body mechanics, Postural training, Dynamic Lumbar Stabilization, Andi Exercises, Scapular Strength/Stabilization For the Purpose of:: To decrease pain, To decrease swelling/inflammation, To increase ROM, To improve nutrient delivery to tissue, To improve muscle performance and motor function, To increase tolerance to activity/conditio n/position, To improve ability of physical actions for home/community/work/leisure, To improve health of tissue, To increase flexibility/ROM IF ES: Yes Cryotherapy (ice pack, ice massage): Yes Thermo th erapy (hot pack): Yes Ultrasound (thermal/non thermal): Yes For the Purpose of:: To decrease pain, To decrease swelling/inflammation, To increase ROM, To improve nutrient delivery to tissue Thank yo u for the opportunity to evaluate your patient. For Medicare and Medicare HMO plans, please review the plan of care and approve it. It will need to be FAXED BACK to us at [phone] for Medicare purp oses. Please let me know if there are questions or concerns regarding this plan of care. Physician Signature: Date: <Electronica virgie signed by Lise Mccracken MPT> 11/15/17 1230 CC: NICHOLE Woodard; Consuelo Farrell DO Signed For Medicare only, by signing this I certify the plan of care. Physicians Signature Date 05-Nov-2017 L/S Spine Min 4 Views Result: Comments: See Note; NOTES: [facility] Imaging Services [address] [place] [address] L/S Spine Min 4 Views MR#: [id number] Acct: [id number] Name: ELAINE CORNEJO Rep #: [id number] : 1955 F 62 From: Moiz Nelson MD PCP: Rachel Jeff DO Status: REG CLI Study: L/S Spine Min 4 Views Date of Exam: 11/05/17 Exam# [id number] Ordering Dr: Mya Woodard STUDY: X-RAY - LUPE MBAR SPINE REASON FOR EXAM: Female, 62 years old. Low back pain TECHNIQUE: For view(s) of the lumbar spine were obtained. COMPARISON: None FINDINGS: Normal lumbar lordosis. There is no substantial scoliosis. There is a normal alignment of the vertebrae. There is multilevel endplate spondylosis of the lumbar vertebrae. There is multi-level degenerative disc dise ase with multi-level disc space narrowing. There is no demonstrated fracture. Previous cholecystectomy The soft tissue structures are unremarkable. 098 RAD/L/S Spine Min 4 Views IMPRESSION: Degenerative changes of the spine, as detailed above. Electronically Signed: Satnam Nelson MD at 16:04 EDT , Service support [phone], CC: NICHOLE Woodard; Rachel Jeff DO Post Graduate Intern: Signed 24-Jun-2017 Abdomen/Pelvis without Cont Result: Comments: See Note; NOTES: [facility] Imaging Services [address] [place] [address] Abdomen/Pelvis without Cont MR#: [id number] Acct: [id number] Name: ELAINE CORNEJO Rep #: [id number] : 1955 F 61 From: Adalberto Hurtado MD PCP: Rachel Jeff DO Status: REG CLI Study: Abdomen/Pelvis without Cont Date of Exam: 06/24/17 Exam# [id number] Ordering Dr: Mya Woodard STUDY: CT ABDOMEN AND PELVIS WITHOUT CONTRAST REASON FOR EXAM: Female, 61 years old. Mid abdominal pain and hematuria. RADIATION DOSAGE (If Supplied By Facility): CTDIvol = ( 10.50 ) mGy, DLP = ( 54 8.12 ) mGycm TECHNIQUE: Transaxial images were obtained from the dome of the diaphragm to the symphysis pubis without oral contrast, and without intravenous contrast. Sagittal and coronal images were r econstructed. Individualized dose optimization techniques were used for this CT. COMPARISON: None. FINDINGS: The visualized lung bases are unremarkable. The visual ized portions of the heart are within normal limits. There is a 1.3 cm cyst in the superior aspect of the right lobe of the liver. There are surgical clips in the gallbladder fossa consistent with a pr ior cholecystectomy. Normal spleen. Normal pancreas. Normal bilateral adrenal glands. 2 tiny nonobstructive intrarenal calculi are seen in the lower pole calyx of the right kidney. 2 tiny nonobstructi ve calculi are seen in the lower pole calyx of the left kidney. There is a small hiatal hernia. Normal small intestine. Normal colon. The appendix is visualized and appears normal. Normal abdominal ao rta. Normal inferior vena cava. Normal retroperitoneum. Normal urinary bladder. There is a 2.3 cm x 3.4 cm cyst in the left ovary. Normal abdominal wall. There are degenerative changes of the visualiz ed lumbar spine. CT/Abdomen/Pelvis without Cont IMPRESSION: Small bilateral nonobstructive intrarenal calculi. No obstructive uropathy is seen. 2 .3 cm x 3.4 cm left ovarian cyst. Electronically Signed: Adalberto Hurtado MD at 12:29 EST Tel [phone], Service support , CC: NICHOLE Woodard; Rachel Jeff DO Post Graduate Intern: Signed 10-Nov-2015 Bilat Scrn Digital AND CAD Result: Comments: See Note; NOTES: [facility] Imaging Services [address] [place] [address] Verdana 4d Bilat Scrn Digital AND CAD MR#: [id number] Acct: [id number] Name: ELAINE CORNEJO Rep #: [id number] : 1955 F 60 From: Adalberto Hurtado MD PCP: Juana Acosta MD Status: REG CLI Study: Bilat Scrn Digital AND CAD Date of Exam: 11/10/15 Exam# [id number] Inder king Dr: Juana Acosta MD MAMMOGRAPHY - BILATERAL SCREENING REASON FOR EXAM: Female, 60 years old. Routine annual screening examination. PERTINENT HISTORY: Non-contributory. TECHNIQUE: Digital b ilateral breast sera (3D mammographic acquisition) in the CC and MLO projections. 2-D mediolateral oblique (MLO) and craniocaudad (CC) views of both breasts were obtained. CAD: Full Field Digital Doc mography with Computer Added Detection was performed. COMPARISON: Comparison is made with prior outside examination dated April 02, 2014. FINDINGS: Breast C omposition: The breasts are almost entirely fatty. There are no dominant masses or suspicious calcifications. No other significant abnormalities are identified. There has been no significant change since the prior study. IMPRESSION: Stable bilateral screening mammogram. Yearly follow-up mammogram recommended. (A) ASS ESSMENT CATEGORY: BIRADS Category 1: Negative. A letter regarding these results will be sent to the patient by the facility within 30 days. Approximately 10% of breast cancers are not detected by ma mmography. A normal mammogram should not delay biopsy of a clinically suspicious abnormality. [id number] Electronically Signed: Adalberto Hurtado MD at 15:30 EDT Tel [phone], Servic e support [phone], CC: Juana Acosta MD Post Graduate Intern: Signed 10-Nov-2015 Dexa Bone Density Study (HP) Result: Comments: See Note; NOTES: [facility] Imaging Services [address] [place] [address] [place] 4d Dexa Bone Density Study (HP) MR#: [id number] Acct: [id number] Name : ELAINE CORNEJO Rep #: [id number] : 1955 F 60 From: Adalberto Hurtado MD PCP: uJana Acosta MD Status: REG CLI Study: Dexa Bone Density Study (HP) Date of Exam: 11/10/15 Exam# [id number] Ludivina yung Dr: Juana Acsota MD STUDY: DUAL ENERGY X-RAY ABSORPTIOMETRY / DXA REASON FOR EXAM: Female, 60 years old. The patient is postmenopausal. TECHNIQUE: Bone Mineral Density (BMD) measurements of lumbar spine and bilateral hips were obtained. COMPARISON: None. FINDINGS: Lumbar Spine (L1-L4): g/cm2 (1.148) / T-score (-0.4) / Z-score (0.8) Findings a re suggestive of normal bone density with a low fracture risk. Left Femur Total: g/cm2 (1.033) / T-score (0.2) / Z-score (1.2) Left Femoral Neck: g/cm2 (0.941) / T-score (-0.7) / Z-score (0.6) Right Femur Total: g/cm2 (1.019) / T-score (0.1) / Z-score (1.1) Right Femoral Neck: g/cm2 (0.912) / T-score (-0.9) / Z-score (0.4) IMPRESSION: The patient is consid ered normal as outlined below according to World Avila Organization (WHO) criteria with a low fracture risk. Reference Information: The T-score is the number of standard deviations above or below the standard which is normal for young adults at their peak bone mineral density. The World Health Organization (WHO) interprets the T-scores as follows: Above - 1 Normal bone density Between -1 and -2.5 Osteopenia Equal to / or below -2.5 Osteoporosis As a practical clinical guideline, osteopenia may be graded as follows: Mild -1 through -1.5 Moderate -1. 6 through -2.0 Severe -2.1 through -2.4 The Z-score is the number of standard deviations above or below age-matched controls. A Z-score of less than -1.5 would be considered abnormal. References: 1. NIH Osteoporosis and Related Bone Diseases http://www.osteo.org 2. International Society for Clinical Densitometry http://www.iscd.org 3. National Osteoporosis Foundation http://www.nof.org Elec tronically Signed: Adalberto Hurtado MD at 15:16 EDT Tel [phone], Service support [phone], CC: Juana Acosta MD Post Graduate Intern: Signed 27-Oct-2015 Post Void Residual Bladder Result: Comments: See Note; NOTES: [facility] Imaging Services [address] [place] [address] [address] 4d Post Void Residual Bladder MR#: [id number] Acct: [id number] Name: ELAINE CORNEJO Rep #: [id number] : 1955 F 60 From: Jeyson Espinoza MD PCP: Juana Acosta MD Status: REG CLI Study: Post Void Residual Bladder Date of Exam: 10/27/15 Exam# [id number] Ordering Dr: Juana Acosta MD STUDY: ULTRASOUND - URINARY BLADDER REASON FOR EXAM: Female, 60 years old. Urinary retention. TECHNIQUE: Ultrasound evaluation of the urinary bladder was performed with suellen l-time and static delarosa-scale imaging. COMPARISON: None. FINDINGS: There is no right UVJ calculus. There is a visualized right ureteral jet. T here is no left UVJ calculus. There is a visualized left ureteral jet. The distended volume of the urinary bladder is 222 ml. The empty volume of the urinary bladder is 62 ml. Th e bladder wall is within normal limits. The bladder wall measures 2mm. There is no demonstrated bladder wall mass lesion. There are no demonstrated bladder calculi. Incidental probable enlarged rig ht ovary or pedunculated fibroid. Ultrasound of the pelvis with endovaginal is recommended. IMPRESSION: Normal bladder, with a mild post void residual of 62 mL. Right ovarian mass or fibroid. Pelvic ultrasound with endovaginal is recommended. Electronically Signed: Jeyson Espinoza MD at 16:52 EDT , Service support , CC: Juana Acosta MD Post Graduate Intern: Signed Family History Unknown Family Member Name Dates Details Brother 1 Comments: healthy younger Status: Active Father Comments: Colon Cancer, Type II diabetes Status: Active Maternal Grandfather Comments: heart disease Status: Active Maternal Grandmother Comments: 55 heart disease Status: Active Mother Comments: high hholesterol, Mariya Stevens Status: Active Paternal Grandfather Comments: , old age Status: Active Paternal Grandmother Comments: colon cancer Status: Active Sister 1 Comments: healthy younger Status: Active Social History Name Dates Details Alcohol Use: Drinks wine. Comments: 2 weekly Status: Active Caffeine Use Comments: 2 cups qd Status: Active Current Work/Study Status: Retired. Status: Active Exercise History: Exercises regularly. Status: Active Living Situation Comments: lives with spouse Status: Active No Drug Use Status: Active Tobacco Use: Never smoker. Status: Active Smoking Status Name Dates Details Never smoker Vital Signs Date Test Result Details [id number] Temperature 97.9 f Comments: Method: Temporal Pulse 77 /min Comments: Pattern: Regular Respiration Rate 16 /min Comments: Pattern: Unlabored O2 SAT 98 % Comments: Room air BP Systolic 124 mm[Hg] Comments: Patient Position: Sitting; Cuff Location: Left Arm; Cuff Size: Standard BP Diastolic 74 mm[Hg] Comments: Patient Position: Sitting; Cuff Location: Left Arm; Cuff Size: Standard Weight 179.5 lb Height 69.5 in Body Mass Index Calculated 26.13 kg/m2 Body Surface Area Calculated 1.98 m2 :47 Pulse 67 /min Comments: Pattern: Regular Respiration Rate 18 /min Comments: Pattern: Unlabored O2 SAT 99 % Comments: Room air BP Systolic 108 mm[Hg] Comments: Patient Position: Sitting; Cuff Location: Left Arm; Cuff Size: Large BP Diastolic 64 mm[Hg] Comments: Patient Position: Sitting; Cuff Location: Left Arm; Cuff Size: Large Weight 179.5 lb Height 69.5 in Body Mass Index Calculated 26.13 kg/m2 Body Surface Area Calculated 1.98 m2 :47 Pulse 71 /min Comments: Pattern: Regular Respiration Rate 18 /min Comments: Pattern: Unlabored O2 SAT 98 % Comments: Room air BP Systolic 124 mm[Hg] Comments: Patient Position: Sitting; Cuff Location: Left Arm; Cuff Size: Large BP Diastolic 82 mm[Hg] Comments: Patient Position: Sitting; Cuff Location: Left Arm; Cuff Size: Large Weight 183 lb Height 69.5 in Body Mass Index Calculated 26.64 kg/m2 Body Surface Area Calculated 2 m2 :38 Temperature 96.5 f Pulse 71 /min Comments: Pattern: Regular Respiration Rate 18 /min Comments: Pattern: Unlabored O2 SAT 97 % Comments: Room air BP Systolic 116 mm[Hg] Comments: Patient Position: Sitting; Cuff Location: Left Arm; Cuff Size: Standard BP Diastolic 68 mm[Hg] Comments: Patient Position: Sitting; Cuff Location: Left Arm; Cuff Size: Standard Weight 192 lb Height 69.5 in Body Mass Index Calculated 27.95 kg/m2 Body Surface Area Calculated 2.04 m2 :51 Temperature 98.3 f Comments: Method: Axillary Pulse 72 /min Comments: Pattern: Regular Respiration Rate 16 /min Comments: Pattern: Unlabored O2 SAT 98 % Comments: Room air BP Systolic 134 mm[Hg] Comments: Patient Position: Sitting; Cuff Location: Left Arm; Cuff Size: Standard BP Diastolic 78 mm[Hg] Comments: Patient Position: Sitting; Cuff Location: Left Arm; Cuff Size: Standard Weight 192 lb Height 69.5 in Body Mass Index Calculated 27.95 kg/m2 Body Surface Area Calculated 2.04 m2 :53 Temperature 98.1 f Pulse 77 /min Comments: Pattern: Regular Respiration Rate 17 /min Comments: Pattern: Unlabored O2 SAT 97 % Comments: Room air BP Systolic 116 mm[Hg] Comments: Patient Position: Sitting; Cuff Location: Left Arm; Cuff Size: Standard BP Diastolic 68 mm[Hg] Comments: Patient Position: Sitting; Cuff Location: Left Arm; Cuff Size: Standard Weight 192 lb Height 69.5 in Body Mass Index Calculated 27.95 kg/m2 Body Surface Area Calculated 2.04 m2 :48 Temperature 97.8 f Comments: Method: Temporal Pulse 84 /min Comments: Pattern: Regular Respiration Rate 20 /min Comments: Pattern: Unlabored O2 SAT 99 % Comments: Room air BP Systolic 118 mm[Hg] Comments: Patient Position: Sitting; Cuff Location: Left Arm; Cuff Size: Standard BP Diastolic 68 mm[Hg] Comments: Patient Position: Sitting; Cuff Location: Left Arm; Cuff Size: Standard Weight 190 lb Height 69.5 in Body Mass Index Calculated 27.66 kg/m2 Body Surface Area Calculated 2.03 m2 :27 Temperature 97.6 f Pulse 94 /min Comments: Pattern: Regular Respiration Rate 18 /min Comments: Pattern: Unlabored O2 SAT 99 % Comments: Room air BP Systolic 124 mm[Hg] Comments: Patient Position: Sitting; Cuff Location: Left Arm; Cuff Size: Standard BP Diastolic 78 mm[Hg] Comments: Patient Position: Sitting; Cuff Location: Left Arm; Cuff Size: Standard Weight 190 lb Height 69.5 in Body Mass Index Calculated 27.66 kg/m2 Body Surface Area Calculated 2.03 m2 :02 Temperature 98 f Pulse 75 /min Comments: Pattern: Regular Respiration Rate 15 /min Comments: Pattern: Unlabored O2 SAT 100 % Comments: Room air BP Systolic 126 mm[Hg] Comments: Patient Position: Sitting; Cuff Location: Left Arm; Cuff Size: Standard BP Diastolic 70 mm[Hg] Comments: Patient Position: Sitting; Cuff Location: Left Arm; Cuff Size: Standard Weight 190 lb Height 69.5 in Body Mass Index Calculated 27.66 kg/m2 Body Surface Area Calculated 2.03 m2 :53 Temperature 97.6 f Comments: Method: Temporal Pulse 70 /min Comments: Pattern: Regular Respiration Rate 18 /min Comments: Pattern: Unlabored O2 SAT 98 % Comments: Room air BP Systolic 116 mm[Hg] Comments: Patient Position: Sitting; Cuff Location: Left Arm; Cuff Size: Standard BP Diastolic 76 mm[Hg] Comments: Patient Position: Sitting; Cuff Location: Left Arm; Cuff Size: Standard Weight 191 lb Height 69.5 in Body Mass Index Calculated 27.8 kg/m2 Body Surface Area Calculated 2.04 m2 :06 Temperature 97.4 f Comments: Method: Temporal Pulse 70 /min Comments: Pattern: Regular Respiration Rate 15 /min Comments: Pattern: Unlabored O2 SAT 97 % Comments: Room air BP Systolic 120 mm[Hg] Comments: Patient Position: Sitting; Cuff Location: Left Arm; Cuff Size: Standard BP Diastolic 88 mm[Hg] Comments: Patient Position: Sitting; Cuff Location: Left Arm; Cuff Size: Standard Weight 191 lb Height 69.5 in Body Mass Index Calculated 27.8 kg/m2 Body Surface Area Calculated 2.04 m2 :56 Temperature 97.6 f Comments: Method: Temporal Pulse 70 /min Comments: Pattern: Regular Respiration Rate 18 /min Comments: Pattern: Unlabored O2 SAT 98 % Comments: Room air BP Systolic 110 mm[Hg] Comments: Patient Position: Sitting; Cuff Location: Left Arm; Cuff Size: Standard BP Diastolic 74 mm[Hg] Comments: Patient Position: Sitting; Cuff Location: Left Arm; Cuff Size: Standard Weight 192 lb Height 69.5 in Body Mass Index Calculated 27.95 kg/m2 Body Surface Area Calculated 2.04 m2 Results Date Description Value Details :30 Cytology, Body Fluid / CSF Comments: Specimen Source: [facility] [address] [place], [address] CYTOLOGY,BF/CSF SEE PATHOLOGY REPORT Comments: Specimen submitted to Anatomical Pathology Department fortesting. (Normal) :30 Fluid/Washing See Note (Normal) Comments: [facility] [address] [place], [place], [id number] Comments: Patient: ELAINE CORNEJO : 1955 (62/F) Acct Num: [id number] Phys: Brianne MICHELA,Jennifer Unit Num: [id number] Loc: LABSPEC Specimen: [id number] Received: 03/18/18 - 1600 Spec Type: Fluid TISSUES 1 TISSUES: Urine COMMENT The specimen primarily contains benign squamous epithelial cells. Clinical correlation is suggested. CYTOLOGY GROSS Received is 5 m l of cloudy yellow fluid labeled with the patient's name and and designated per the requisition as urine. Submitted for cytology preparation. / CC:cc 03/19/18 TC:5 CPT: 53323 CYTOLOGY DYLLAN DY Slides are reviewed. DIAGNOSIS CYTOLOGY Urine for cytology (cytospin): Negative for malignant cells. See comment. AM:rg 03/20/18 HEADER OPERATION: Not noted PRE-OP DIAGNOSIS: Gross hematuria TISSUE SUBMITTED: Urine for cytology Signed Kai [facility] 03/20/18 <signature on file> 02-Bgy-300488:38 URINE VAUGHN CULTURE-IDENTIFICATN Comments: PATIENT NOT FASTINGPERFORMED BY: [employer] Mlnxgj3781 [facility]Nov[facility] [id number] Information: [id number] (23201) Result 1 NG36 (Normal) Comments: No growth in 36 - 48 hours. Urine Culture,Comprehensive Final report (Normal) 28-Kgh-642651:29 Urinalysis, Office (82828) UA - LEUKOCYTE ESTERASE Negative (Normal) UA - NITRITE Negative (Normal) URINE UROBILINGN ERIC TIMED Normal mg/dL (Normal) UA - PROTEIN Negative mg/dL (Normal) UA - PH 7 (Normal) UA - BLOOD + (Abnormal) UA - SPECIFIC GRAVITY 1.020 (Normal) UA - KETONES Negative mg/dL (Normal) UA - BILIRUBIN Negative (Normal) UA - GLUCOSE Negative (Normal) 3-Ogl-344045:51 Microscopic Examination Comments: PATIENT WAS FASTINGPERFORMED BY: SproomGallup Indian Medical CenterHnumed3263 Julong Educational TechnologyUNC Health Caldwell [id number] Bacteria Few (Normal) Mucus Threads Present (Normal) Epithelial Cells (non renal) 0-10 {/hpf} (Normal) Range: 0 - 10 RBC 0-2 {/hpf} (Normal) Range: 0 - 2 WBC 11-30 {/hpf} (Abnormal) Range: 0 - 5 6-Llk-391422:51 TSH (63636) Comments: PATIENT WAS FASTINGPERFORMED BY: [facility] [facility] [id number] TSH 2.670 {uIU/mL} (Normal) Range: 0.450-4.500 4-Xkj-986740:51 URINALYSIS, W/ MICRO (16262) Comments: PATIENT WAS FASTINGPERFORMED BY: [facility] [place] [address] [id number] Microscopic Examination See below: (Normal) Comments: Microscopic was indicated and was performed. Nitrite, Urine Negative (Normal) Urobilinogen,Semi-Qn 0.2 mg/dL (Normal) Range: 0.2-1.0 Bilirubin Negative (Normal) Occult Blood 2+ (Abnormal) Ketones Negative (Normal) Glucose Negative (Normal) Protein 1+ (Abnormal) WBC Esterase Trace (Abnormal) Appearance Clear (Normal) Urine-Color Yellow (Normal) pH 8.5 (Abnormal) Range: 5.0-7.5 Specific [place] 1.020 (Normal) Range: 1.005-1.030 2-Zaa-998934:51 MICROALBUMIN: CREATININE RATIO Comments: PATIENT WAS FASTINGPERFORMED BY: [facility] [facility] [id number] (48070) AND (42686) Alb/Creat Ratio 16.2 {mg/g_creat} (Normal) Range: 0.0-30.0 Albumin, Urine 23.7 ug/mL (Normal) Creatinine, Urine 146.3 mg/dL (Normal) 8-Ncc-754428:51 METABOLIC PANEL, COMPREHENSIVE Comments: PATIENT WAS FASTINGPERFORMED BY: [facility] [facility] [id number] (21394) ALT (SGPT) 15 [iU]/L (Normal) Range: 0-32 AST (SGOT) 15 [iU]/L (Normal) Range: 0-40 Alkaline Phosphatase 57 [iU]/L (Normal) Range: 39-117 Bilirubin, Total 0.3 mg/dL (Normal) Range: 0.0-1.2 A/G Ratio 1.4 (Normal) Range: 1.2-2.2 Globulin, Total 3.0 g/dL (Normal) Range: 1.5-4.5 Albumin 4.2 g/dL (Normal) Range: 3.6-4.8 Protein, Total 7.2 g/dL (Normal) Range: 6.0-8.5 Calcium 9.2 mg/dL (Normal) Range: 8.7-10.3 Carbon Dioxide, Total 26 mmol/L (Normal) Range: 18-29 Comments: Effective September 30, 2017 Carbon Dioxide, Total reference interval will be changing to: Age Male Female 0 days - 30 days 16 - 29 16 - 29 31 days - 1 year 15 - 25 15 - 25 2 years - 5 years 17 - 26 17 - 26 6 y ears - 12 years 19 - 27 19 - 27 >12 years 20 - 29 20 - 29 Chloride 102 mmol/L (Normal) Range: 96-106 Potassium 4.5 mmol/L (Normal) Range: 3.5-5.2 Sodium 141 mmol/L (Normal) Range: 134-144 BUN/Creatinine Ratio 14 (Normal) Range: 12-28 eGFR If Africn Am 102 mL/min/1.73 (Normal) eGFR If NonAfricn Am 89 mL/min/1.73 (Normal) Creatinine 0.73 mg/dL (Normal) Range: 0.57-1.00 BUN 10 mg/dL (Normal) Range: 8-27 Glucose 94 mg/dL (Normal) Range: 65-99 9-Kjj-066152:51 LIPID PANEL (60672) Comments: PATIENT WAS FASTINGPERFORMED BY: [facility]CoInsp[facility] Mullica HillCgggpm4471 [facility] [id number] LDL/HDL Ratio 1.4 {ratio} (Normal) Range: 0.0-3.2 Comments: LDL/HDL Ratio Men Women 1/2 Avg.Risk 1.0 1.5 Av g.Risk 3.6 3.2 2X Avg.Risk 6.2 5.0 3X Avg.Risk 8.0 6.1 LDL Cholesterol Calc 64 mg/dL (Normal) Range: 0-99 VLDL Cholesterol Beni 72 mg/dL (Abnormal) Range: 5-40 HDL Cholesterol 46 mg/dL (Normal) Triglycerides 362 mg/dL (Abnormal) Range: 0-149 Cholesterol, Total 182 mg/dL (Normal) Range: 100-199 :51 CBC W/AUTO DIFF WBC (66280) Comments: PATIENT WAS FASTINGPERFORMED BY: [facility] Wvfciz8591 [facility] [id number] Immature Grans (Abs) 0.0 {x10E3/uL} (Normal) Range: 0.0-0.1 Immature Granulocytes 0 % (Normal) Baso (Absolute) 0.0 {x10E3/uL} (Normal) Range: 0.0-0.2 Eos (Absolute) 0.2 {x10E3/uL} (Normal) Range: 0.0-0.4 Monocytes(Absolute) 0.4 {x10E3/uL} (Normal) Range: 0.1-0.9 Lymphs (Absolute) 3.2 {x10E3/uL} (Abnormal) Range: 0.7-3.1 Neutrophils (Absolute) 3.9 {x10E3/uL} (Normal) Range: 1.4-7.0 Basos 1 % (Normal) Eos 3 % (Normal) Monocytes 5 % (Normal) Lymphs 41 % (Normal) Neutrophils 50 % (Normal) Platelets 236 {x10E3/uL} (Normal) Range: 150-379 RDW 13.0 % (Normal) Range: 12.3-15.4 MCHC 33.0 g/dL (Normal) Range: 31.5-35.7 MCH 30.1 pg (Normal) Range: 26.6-33.0 MCV 91 fL (Normal) Range: 79-97 Hematocrit 40.9 % (Normal) Range: 34.0-46.6 Hemoglobin 13.5 g/dL (Normal) Range: 11.1-15.9 RBC 4.48 {x10E6/uL} (Normal) Range: 3.77-5.28 WBC 7.8 {x10E3/uL} (Normal) Range: 3.4-10.8 :54 HgA1C , Office (57129) HgA1C , Office 6.0 % (Normal) Range: 4.6 - 7.1 :54 Blood Glucose , Office (92021) Blood Glucose , Office 86 (Normal) 2-Cpw-780792:54 URINE VAUGHN CULTURE-IDENTIFICATN Comments: PATIENT NOT FASTINGPERFORMED BY: [employer] Elkrir4856 [facility] [id number] Information: SRC: ([id number]) Result 1 NG36 (Normal) Comments: No growth in 36 - 48 hours. Urine Culture,Comprehensive Final report (Normal) 1-Hoo-862556:03 Urinalysis, Office (93328) UA - LEUKOCYTE ESTERASE Negative (Normal) UA - NITRITE Negative (Normal) URINE UROBILINGN ERIC TIMED 2 mg/dL (Normal) UA - PROTEIN Negative mg/dL (Normal) UA - PH 7.0 (Normal) UA - BLOOD Hemolyzed Trace (Normal) UA - SPECIFIC GRAVITY 1.010 (Normal) UA - KETONES Negative mg/dL (Normal) UA - BILIRUBIN Negative (Normal) UA - GLUCOSE Negative (Normal) 6-Rnz-130011:27 URINE VAUGHN CULTURE-ERIC COL Comments: PATIENT NOT FASTINGPERFORMED BY: [employer] Vzggof0918 [facility] [id number] Information: SRC: COUNT ([id number]) Result 2 PSMS (Abnormal) Comments: Pseudomonas [id number] Colonies/mL S = Susceptible; I = Intermediate; R = Resistant P = Positive; N = Negative MICS are expressed in micrograms per mL Antibi otic RSLT#1 RSLT#2 RSLT#3 RSLT#4Amikacin SCefepime SCeftazidime SCiprofloxacin S SGentamicin SImipenem SLevofloxacin S SMeropenem SNitrofurant oin SPenicillin SPiperacillin STetracycline STicarcillin STobramycin SVancomycin S Result 1 Enterococcus faecalis Comments: 10,000-25,000 colony forming units per mLNote: this isolate is vancomycin-susceptible.This information is provided for epidemiologic purposes only:vancomycin is not among the antibiotics rec ommended for (Abnormal) therapyof urinary tract infections caused by Enterococcus.For Enterococcus species, aminoglycosides (except for high-levelresistance screening), cephalosporins, clindamycin, andtrimethoprim-sulfamethox azole are not effective clinically.(CLSI, T478-H98, 2016) Urine Final report (Abnormal) Culture,Comprehensive 2-Sso-428398:52 Urinalysis, Office (74059) UA - LEUKOCYTE ESTERASE Negative (Normal) UA - NITRITE Negative (Normal) URINE UROBILINGN ERIC TIMED Normal mg/dL (Normal) UA - PROTEIN Negative mg/dL (Normal) UA - PH 7 (Normal) UA - BLOOD +++ (Abnormal) UA - SPECIFIC GRAVITY 1.010 (Normal) UA - KETONES Negative mg/dL (Normal) UA - BILIRUBIN Negative (Normal) UA - GLUCOSE Negative (Normal) :37 Urine Culture,Comprehensive Comments: PATIENT NOT FASTINGPERFORMED BY: [facility] HealthcareNov[facility] [id number] Information: SRC: Result 1 PSMS (Abnormal) Comments: Pseudomonas aeruginosaGreater than 100,000 colony forming units per mL S = Susceptible; I = Intermediate; R = Resistant P = Positive; N = Negative MICS are expres sed in micrograms per mL Antibiotic RSLT#1 RSLT#2 RSLT#3 RSLT#4Amikacin SCefepime SCeftazidime SCiprofloxacin SGentamicin SImipenem SLevofloxacin SMeropenem SPiperacillin STicarcillin STobramycin S Urine Final report (Abnormal) Culture,Comprehensive 23-May-20177:53 Urinalysis, Office (35048) UA - LEUKOCYTE ESTERASE Trace (Normal) UA - NITRITE Negative (Normal) URINE UROBILINGN ERIC TIMED 2 mg/dL (Normal) UA - PROTEIN Negative mg/dL (Normal) UA - PH 7.0 (Normal) UA - BLOOD Hemolyzed Large (Normal) UA - SPECIFIC GRAVITY 1.015 (Normal) UA - KETONES Negative mg/dL (Normal) UA - BILIRUBIN Negative (Normal) UA - GLUCOSE Negative (Normal) :12 HGB A1C (50014) Comments: PATIENT WAS FASTINGPERFORMED BY: [facility]ub[employer] HandprintNov[facility] Center [id number] Hemoglobin A1c 6.2 % (Abnormal) Range: 4.8-5.6 Comments: . Pre-diabetes: 5.7 - 6.4 Diabetes: >6.4 Glycemic control for adults with diabetes: <7.0 04-Yje-17216:12 CALCIFEDIOL (26247) Comments: PATIENT WAS FASTINGPERFORMED BY: [facility] Institute6[facility] [id number] Vitamin D, 25-Hydroxy 40.1 ng/mL (Normal) Range: 30.0-100.0 Comments: Vitamin D deficiency has been defined by the [employer] ofMedicine and an Endocrine Society practice guideline as alevel of serum 25-OH vitamin D less than 20 ng/mL (1,2).The Endocrine Society went on to further define vitamin Dinsufficiency as a level between 21 and 29 ng/mL (2).1. IOM ([employer] of Medicine). 2010. Dietary reference intakes for calcium and D. [place]: The National Academies Press.2. Nasra MF, Topher ROCHA, Hugh DÍAZ, et al. Evaluation, treatment, and prevention of vitamin D deficiency: an Endocrine Society clinical practice guideline. JCEM. 2010; 96(7):1911-30. 50-Pui-69487:12 CBC, Platelets & Auto Diff Comments: PATIENT WAS FASTINGPERFORMED BY: LabCoInspira Medical Center Mullica HillOfqphs9093 [facility] [id number] (64154) Basos 0 % (Normal) Eos 3 % (Normal) Monocytes 5 % (Normal) Lymphs 32 % (Normal) Neutrophils 60 % (Normal) Platelets 251 {x10E3/uL} (Normal) Range: 150-379 RDW 13.4 % (Normal) Range: 12.3-15.4 MCHC 31.8 g/dL (Normal) Range: 31.5-35.7 MCH 29.5 pg (Normal) Range: 26.6-33.0 MCV 93 fL (Normal) Range: 79-97 Hematocrit 40.3 % (Normal) Range: 34.0-46.6 Hemoglobin 12.8 g/dL (Normal) Range: 11.1-15.9 RBC 4.34 {x10E6/uL} (Normal) Range: 3.77-5.28 WBC 6.8 {x10E3/uL} (Normal) Range: 3.4-10.8 Immature Grans (Abs) 0.0 {x10E3/uL} (Normal) Range: 0.0-0.1 Immature Granulocytes 0 % (Normal) Baso (Absolute) 0.0 {x10E3/uL} (Normal) Range: 0.0-0.2 Eos (Absolute) 0.2 {x10E3/uL} (Normal) Range: 0.0-0.4 Monocytes(Absolute) 0.3 {x10E3/uL} (Normal) Range: 0.1-0.9 Lymphs (Absolute) 2.2 {x10E3/uL} (Normal) Range: 0.7-3.1 Neutrophils (Absolute) 4.0 {x10E3/uL} (Normal) Range: 1.4-7.0 43-Cuv-24202:12 Metabolic Panel, Comprehensive Comments: PATIENT WAS FASTINGPERFORMED BY: [facility] Pmqtqu1397 [facility] [id number] (64776) ALT (SGPT) 15 [iU]/L (Normal) Range: 0-32 AST (SGOT) 16 [iU]/L (Normal) Range: 0-40 Alkaline Phosphatase, S 52 [iU]/L (Normal) Range: 39-117 Bilirubin, Total 0.3 mg/dL (Normal) Range: 0.0-1.2 A/G Ratio 1.7 (Normal) Range: 1.2-2.2 Globulin, Total 2.6 g/dL (Normal) Range: 1.5-4.5 Albumin, Serum 4.3 g/dL (Normal) Range: 3.6-4.8 Protein, Total, Serum 6.9 g/dL (Normal) Range: 6.0-8.5 Calcium, Serum 8.9 mg/dL (Normal) Range: 8.7-10.3 Carbon Dioxide, Total 24 mmol/L (Normal) Range: 18-29 Chloride, Serum 101 mmol/L (Normal) Range: 96-106 Potassium, Serum 4.2 mmol/L (Normal) Range: 3.5-5.2 Sodium, Serum 140 mmol/L (Normal) Range: 134-144 BUN/Creatinine Ratio 13 (Normal) Range: 12-28 eGFR If Africn Am 96 mL/min/1.73 (Normal) eGFR If NonAfricn Am 83 mL/min/1.73 (Normal) Creatinine, Serum 0.77 mg/dL (Normal) Range: 0.57-1.00 BUN 10 mg/dL (Normal) Range: 8-27 Glucose, Serum 108 mg/dL (Abnormal) Range: 65-99 :12 LIPID PANEL (14528) Comments: PATIENT WAS FASTINGPERFORMED BY: [facility] Biwtjw6910 Dontae Rizvi MD [id number] LDL/HDL Ratio 1.5 {ratio_units} (Normal) Range: 0.0-3.2 Comments: LDL/HDL Ratio Men Women 1/2 Avg.Risk 1.0 1.5 Av g.Risk 3.6 3.2 2X Avg.Risk 6.2 5.0 3X Avg.Risk 8.0 6.1 LDL Cholesterol Calc 64 mg/dL (Normal) Range: 0-99 VLDL Cholesterol Beni 47 mg/dL (Abnormal) Range: 5-40 HDL Cholesterol 43 mg/dL (Normal) Triglycerides 235 mg/dL (Abnormal) Range: 0-149 Cholesterol, Total 154 mg/dL (Normal) Range: 100-199 :38 HgA1C , Office (54586) HgA1C , Office 6.1 % (Normal) Range: 4.6 - 7.1 :47 Blood Glucose , Office (98268) :12 CBC W/Diff, Automated Comments: [facility] [address] [place], [address] ; fu 7-28 Absolute Lymph 2.58 {X10_3/ul} (Normal) Range: 0.83-4.51 Absolute Neut 3.2 {X10_3/uL} (Normal) Range: 2.0-7.7 IM GRAN % 0.200 % (Normal) Range: 0.0-0.9 Comments: IG% - Immature Granulocytes (promyelocytes, myelocytes andmetamyelocytes) > 1% indicates that a LEFT SHIFT is Present. BASO% 0.5 % (Normal) Range: 0-1 EO% 2.5 % (Normal) Range: 0-5 MONO% 4.8 % (Normal) Range: 0-10 LY% 40.9 % (Normal) Range: 19-41 NEUT% 51.1 % (Normal) Range: 47-70 MPV 10.4 fL (Normal) Range: 6.2-12.0 PLT 246 K/mm3 (Normal) Range: 150-450 RDW SD 44.0 fL (Abnormal) Range: 35.1-43.9 RDW CV 13.0 % (Normal) Range: 11.6-14.6 MCHC 32.4 {g/gl} (Normal) Range: 32-36 MCH 30.2 pg (Normal) Range: 27.0-32.0 MCV 93.2 fL (Normal) Range: 81-99 HCT 39.8 % (Normal) Range: 37-47 HGB 12.9 g/dL (Normal) Range: 12.0-15.0 RBC 4.27 {M/mm3} (Normal) Range: 4.2-5.4 WBC 6.3 K/mm3 (Normal) Range: 4.4-11.0 32-Aif-45231:12 Comprehensive Metabolic Profil Comments: [facility] [address] [place], [place], [id number] GAP 10 (Normal) Range: 5-15 CO2 24.0 mmol/L (Normal) Range: 21.0-32.0 CL 106 mmol/L (Normal) Range: 98-107 K 4.0 mmol/L (Normal) Range: 3.5-5.1 NA 140 mmol/L (Normal) Range: 136-145 T BILI 0.40 mg/dL (Normal) Range: 0.20-1.00 ALT 27 U/L (Normal) Range: 12-78 ALK P 58 U/L (Normal) Range: 50-136 AST 26 U/L (Normal) Range: 15-37 CA 8.7 mg/dL (Normal) Range: 8.5-10.1 A/G 1.0 {RATIO} (Normal) Range: 0.9-2.4 GLOB 3.7 g/dL (Abnormal) Range: 2.3-3.5 ALB 3.6 g/dL (Normal) Range: 3.4-5.0 T PROT 7.3 g/dL (Normal) Range: 6.4-8.2 BUN/CRE 11.0 {RATIO} (Normal) Range: 10-20 EST GFR - AA 92 mL/min (Normal) Comments: GFR Calc EST GFR 76 mL/min (Normal) Comments: Non- GFR Calc CREAT,SERUM 0.82 mg/dL (Normal) Range: 0.55-1.20 Comments: The validity of the calculated GFR AND GFRAA in patients over70 years has not been determined. Clinical correlation isessential. BUN 9 mg/dL (Normal) Range: 7-18 GLU 100 mg/dL (Normal) Range: 70-110 :12 Free T3 Comments: [facility] [address] [place], [place], [address] FREE T3 2.6 pg/mL (Normal) Range: 2.18-3.98 :12 Lipid Profile Comments: [facility] [address] [place], [place], [id number] VLDL 55 mg/dL (Abnormal) Range: 5-40 LDL 51 mg/dL (Normal) Range: 0-130 HDL 46 mg/dL (Normal) Comments: The drugs N-Acetylcysteine and Metamizole may falsely deressthis assay. Reference Range HDL <40 mg/dL Low HDL Cholesterol HDL >or= 60 mg/dL High HDL Cholesterol TRIG 274 mg/dL (Abnormal) Comments: The drugs N-Acetylcysteine and Metamizole may falsely deressthis assay.Serum Triglycerides Reference Interval Normal <150 mg/dL Borderline high 150 - 199 mg/dL High 200 - 499 mg/dL Very High > or = 500 mg/dL CHOL 152 mg/dL (Normal) Comments: <200 mg/dL Desirable 200-240 mg/dL Borderline >240 mg/dL High Risk :12 Prolactin Comments: [facility] [address] [place], [place], [id number] PROLACTIN 5.2 ng/mL (Normal) Comments: NORMAL REFERENCE RANGES FEMALE NON- 2.2 - 30.3 ng/mL 8.1 - 347.6 ng/mL POST-MENOPAUSAL 0.7 - 3 1.5 ng/mL MALE 2.5 - 17.4 ng/mLNEW TEST METHOD AND REFERENCE RANGES SEPTEMBER 10, 2011:12 T4 Free Direct Comments: [facility] [address] [place], [place], [id number] T4 FREE DIRECT 0.85 ng/dL (Normal) Range: 0.76-1.46 :12 Thyroid Stim Hormone (TSH) Comments: [facility] [address] [place], [id number] TSH 3.00 {uIU/mL} (Normal) Range: 0.358-3.74 :12 Vitamin D,25 Hydroxy Comments: [facility] [address] [place], [id number] Vitamin D 25-OH 28.4 ng/mL (Normal) Comments: Vitamin D 25(OH) Status Range Deficiency <20 ng/mL (50nmol/L) Insuffciency 20 - 30 ng/mL (50 - 75 nmol/L) Sufficiency 30 - 100 ng/mL (75 - 250 nmol/L) Toxicity >100 ng/mL (>250 nmol/L) 1-Uem-385581:02 URINE VAUGHN CULTURE-IDENTIFICATN Comments: recheck in 3-4 weeks once done with atb; PATIENT NOT FASTINGPERFORMED BY: [facility] Orksyl7399 [facility] [id number] Information: [id number] (25883) Antimicrobial MIHEAD (Normal) Comments: S = Susceptible; I = Intermediate; R = Resistant P = Positive; N = Negative MICS are expressed in micrograms per mL Antibiotic RSLT#1 RSLT#2 RS Susceptibility LT#3 RSLT#4Amoxicillin/Clavulanic Acid SAmpicillin SCefepime SCeftriaxone SCefuroxime SCephalothin SCiprofloxacin SErtapenem SGentamicin SImipenem SLevofloxacin SNitrofurantoin SPipera cillin STetracycline STobramycin STrimethoprim/Sulfa S Result 1 Escherichia coli Comments: Greater than 100,000 colony forming units per mL (Abnormal) Urine Final report Culture,Comprehensive (Abnormal) :56 Urinalysis, Office (95225) UA - LEUKOCYTE ESTERASE Negative (Normal) UA - NITRITE Negative (Normal) URINE UROBILINGN ERIC TIMED Normal mg/dL (Normal) UA - PROTEIN Negative mg/dL (Normal) UA - BLOOD Negative (Normal) UA - SPECIFIC GRAVITY 1.020 (Normal) UA - KETONES Small mg/dL (Normal) UA - BILIRUBIN Negative (Normal) UA - GLUCOSE Negative (Normal) 79-Gkg-475923:05 URINE VAUGHN CULTURE-ERIC COL Comments: PATIENT NOT FASTINGPERFORMED BY: SERGEY [facility] Mmwmiw0443 Dontae Rizvi MD [id number] Information: SRC:URC [id number] COUNT (79101) Antimicrobial MIHEAD (Normal) Comments: S = Susceptible; I = Intermediate; R = Resistant P = Positive; N = Negative MICS are expressed in micrograms per mL Antibiotic RSLT#1 RSLT#2 RS Susceptibility LT#3 RSLT#4Amoxicillin/Clavulanic Acid SAmpicillin SCefepime SCeftriaxone SCefuroxime SCephalothin SCiprofloxacin SErtapenem SGentamicin SImipenem SLevofloxacin SNitrofurantoin SPipera cillin STetracycline STobramycin STrimethoprim/Sulfa S Result 1 Escherichia coli Comments: Greater than 100,000 colony forming units per mL (Abnormal) Urine Final report Culture,Comprehensive (Abnormal) 03-Nin-82005:02 Urinalysis, Office (73457) UA - LEUKOCYTE ESTERASE Negative (Normal) UA - NITRITE Negative (Normal) URINE UROBILINGN ERIC TIMED Normal mg/dL (Normal) UA - PROTEIN Negative mg/dL (Normal) UA - PH 7 (Normal) UA - BLOOD Non Hemolyzed Trace (Normal) UA - SPECIFIC GRAVITY 1.015 (Normal) UA - KETONES Negative mg/dL (Normal) UA - BILIRUBIN Negative (Normal) UA - GLUCOSE Negative (Normal) Plan of Care Name Dates Details Instructions Back pain : Follow up if no improvement or if symptoms worsen Indication: Back pain Back pain : Proper Sitting, Standing, and Lifting *: back pain Indication: Back pain Back pain : Low Back Pain Exercises *: back exercises Indication: Back pain Allergic rhinitis : Allergy control Indication: Allergic rhinitis Allergic rhinitis : *URI Symptoms Indication: Allergic rhinitis Current nonsmoker (Renamed from Current non-smoker) : Eprescribed prescriptions (G8553) Indication: Current nonsmoker (Renamed from Current non-smoker) Hypertriglyceridemia : Reviewed Lab Indication: Hypertriglyceridemia Type II diabetes mellitus, well controlled : Reviewed Lab Indication: Type II diabetes mellitus, well controlled Hematuria, microscopic : Reviewed Lab Indication: Hematuria, microscopic Hyperlipidemia : Reviewed Online Producer Letter Indication: Hyperlipidemia Hyperlipidemia : Continue Current Prescription(s) Indication: Hyperlipidemia Hyperlipidemia : Cholesterol mgmt Indication: Hyperlipidemia Type II diabetes mellitus, well controlled : Follow up in 3 months Indication: Type II diabetes mellitus, well controlled Urgency of urination : Follow up if no improvement or if symptoms worsen Indication: Urgency of urination Kidney stones : Kidney Stones *: kidney stone Indication: Kidney stones Current nonsmoker (Renamed from Current non-smoker) : Eprescribed prescriptions ([id number]) Indication: Current nonsmoker (Renamed from Current non-smoker) Urine frequency : Follow up if no improvement or if symptoms worsen Indication: Urine frequency Hematuria : Hematuria (Blood in Urine): bladder infection Indication: Hematuria Current nonsmoker (Renamed from Current non-smoker) : Eprescribed prescriptions ([id number]) Indication: Current nonsmoker (Renamed from Current non-smoker) BMI 27.0-27.9,adult : Follow up in 3 months Indication: BMI 27.0-27.9,adult Impaired fasting glucose : Eprescribed prescriptions (G8553) Indication: Impaired fasting glucose UTI (urinary tract infection) : *UTI treatment Indication: UTI (urinary tract infection) Cough : Follow up if no improvement or if symptoms worsen Indication: Cough Sinusitis, bacterial : Sinusitis *: sinus infection Indication: Sinusitis, bacterial Current nonsmoker (Renamed from Current non-smoker) : Eprescribed prescriptions (G8553) Indication: Current nonsmoker (Renamed from Current non-smoker) Hyperlipidemia : Eprescribed prescriptions (G8553) Indication: Hyperlipidemia Planned Observations TSH (THYROID STIMULATING HORMONE) ([id number])Indication: Hot flash, menopausal On: :40 Request URINALYSIS ([id number])Indication: Type II diabetes mellitus, well controlled On: :39 Request CBC & PLATELETS (AUTO) ([id number])Indication: Type II diabetes mellitus, well controlled On: 39 Request Metabolic Panel, Comprehensive ([id number])Indication: Type II diabetes mellitus, well controlled On: :39 Request LIPID PANEL ([id number])Indication: Hyperlipidemia On: :39 Request MICROALBUMIN: CREATININE RATIO ([id number]) AND ([id number])Indication: Type II diabetes mellitus, well controlled On: 5-Sun-707673:38 Request TRIGLYCERIDES ([id number])Indication: Hypertriglyceridemia On: 49-Qxo-920641:11 Request Blood Glucose , Office ([id number])Indication: Impaired fasting glucose On: 31-Zck-76113:47 Request CALCIFIDIOL ([id number]) VIT D 25Indication: Osteopenia On: :56 Request PROLACTIN ([id number])Indication: PMB (postmenopausal bleeding) On: :42 Request CBC (Auto) ([id number])Indication: Hyperlipidemia On: :42 Request Metabolic Panel, Comprehensive ([id number])Indication: Hyperlipidemia On: :42 Request Lipid Panel ([id number])Indication: Hyperlipidemia On: :42 Request T3, FREE (TRIDOTHYRONINE) ([id number])Indication: PMB (postmenopausal bleeding) On: :42 Request T4, FREE (THYROXINE) ([id number])Indication: PMB (postmenopausal bleeding) On: :42 Request TSH ([id number])Indication: PMB (postmenopausal bleeding) On: :42 Request Planned Encounters Medical; 3 Month FU - On: 09-Apr-2018 14:15 [facility] Consuelo Farrell DO, DO, Kathleen Planned Procedures PHYSICAL THERAPY ([id number])By: Vance On: 07-Nov-2017 Intent Mya PHYSICAL THERAPY ([id number])By: Vance On: 05-Nov-2017 Intent Mya Wax CurettesBy: Mya Woodard On: 05-Nov-2017 Intent Ear Irrigation ([id number])By: Vance On: 05-Nov-2017 Intent Mya Comments: IrrigationSite- L and R earAmount/Color/Quality - small amoubt of dark brown cerumen removed from bilateral ears Tolerated wellChelsea, 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 Radiology - Lumbar SpineBy: Vance On: 05-Nov-2017 Intent Mya ELECTROCARDIOGRAM, COMPLETE (ECG) On: 20-Sep-2017 Intent ([id number])By: Consuelo Farrell DO Comments: nsr no acute chgs-- IVCD-- no old to compare Consuelo Farrell DO CT - Abdomen & Pelvis Stone On: 24-Jun-2017 Intent ProtocolBy: Mya Woodard Comments: R/O kidney stone BLADDER ULTRASOUND SCAN WITH On: 22-Sep-2015 Intent MEASUREMENT OF POST-VOID RESIDUAL Comments: in 4 weeks after done with atb URINE VOLUME ([id number])By: Juana Acosta MD MAMMOGRAM, SCREENING, BOTH BREAST On: 29-Aug-2015 Intent ([id number])By: Juana Acosta MD DEXA SCAN AXIAL SKELETON ([id number])By: On: 29-Aug-2015 Intent Juana Acosta MD Instructions Name Dates Details Current nonsmoker (Renamed from Current non-smoker) : How to access health information online Indication: Current nonsmoker (Renamed from Current non-smoker) Current nonsmoker (Renamed from Current non-smoker) : How to access health information online - Detail Indication: Current nonsmoker (Renamed from Current non-smoker) Back pain : Patient Instructions Indication: Back pain Current nonsmoker (Renamed from Current non-smoker) : How to access health information online Indication: Current nonsmoker (Renamed from Current non-smoker) Current nonsmoker (Renamed from Current non-smoker) : How to access health information online - Detail Indication: Current nonsmoker (Renamed from Current non-smoker) Current nonsmoker (Renamed from Current non-smoker) : Patient Instructions Indication: Current nonsmoker (Renamed from Current non-smoker) BMI 26.0-26.9,adult : How to access health information online Indication: BMI 26.0-26.9,adult BMI 26.0-26.9,adult : How to access health information online - Detail Indication: BMI 26.0-26.9,adult BMI 26.0-26.9,adult : Patient Instructions Indication: BMI 26.0-26.9,adult Current nonsmoker (Renamed from Current non-smoker) : How to access health information online Indication: Current nonsmoker (Renamed from Current non-smoker) Current nonsmoker (Renamed from Current non-smoker) : How to access health information online - Detail Indication: Current nonsmoker (Renamed from Current non-smoker) UTI (urinary tract infection) : Patient Instructions Indication: UTI (urinary tract infection) Current nonsmoker (Renamed from Current non-smoker) : How to access health information online Indication: Current nonsmoker (Renamed from Current non-smoker) Current nonsmoker (Renamed from Current non-smoker) : How to access health information online - Detail Indication: Current nonsmoker (Renamed from Current non-smoker) Urine frequency : Patient Instructions Indication: Urine frequency Impaired fasting glucose : How to access health information online Indication: Impaired fasting glucose Impaired fasting glucose : How to access health information online - Detail Indication: Impaired fasting glucose Impaired fasting glucose : Patient Instructions Indication: Impaired fasting glucose UTI (urinary tract infection) : How to access health information online Indication: UTI (urinary tract infection) UTI (urinary tract infection) : How to access health information online - Detail Indication: UTI (urinary tract infection) UTI (urinary tract infection) : Patient Instructions Indication: UTI (urinary tract infection) Current nonsmoker (Renamed from Current non-smoker) : How to access health information online Indication: Current nonsmoker (Renamed from Current non-smoker) Current nonsmoker (Renamed from Current non-smoker) : How to access health information online - Detail Indication: Current nonsmoker (Renamed from Current non-smoker) Sinusitis, bacterial : Patient Instructions Indication: Sinusitis, bacterial Hyperlipidemia : How to access health information online Indication: Hyperlipidemia Hyperlipidemia : How to access health information online - Detail Indication: Hyperlipidemia Hyperlipidemia : Patient Instructions Indication: Hyperlipidemia How to access health information online How to access health information online - Detail Patient Instructions How to access health information online - Detail How to access health information online Patient Instructions Hyperlipidemia : Patient Instructions Indication: Hyperlipidemia Encounters Lab Order On: 24-Mar-2018 17:29 Encounter Diagnosis: Hyperlipidemia, Type II diabetes mellitus, well controlled, Hot flash, menopausal End: 24-Mar-2018 17:42 [facility] Annotation/Addendum On: 07-Nov-2017 10:43 Encounter Diagnosis: Spondylosis, lumbosacral End: 07-Nov-2017 10:48 [facility] Office Visit On: 05-Nov-2017 14:24 Encounter Reason: Back pain - The pain is described as being located in the lumbar area. Note for Pain: Symptoms started about 10 days ago-was lifting a box that shouldn't have been lifting-started to hurt then. Low ba End: 05-Nov-2017 15:58 ck pain-spams every now and then. Has been taking advil an ice therapy. No radiation down legs, no numbness or tingling. No incontinence or loss of bladder or bowel control. Back hurts when sitting prim jame and feels better when moving. Did pilates this morning which started bothering it again. Does have history of kidney stones-also has some allergy symptoms- clear nasal drainage and blood noses ever y now and then. Does use flonase every now and then for allergy symptoms.Encounter Diagnosis: Back pain, BMI 26.0-26.9,adult, Kidney stones, Current nonsmoker (Renamed from Current non-smoker), Muscle spasm, Allergic rhinitis, Cerumen impaction [facility] Office Visit On: 30-Sep-2017 11:44 Encounter Reason: Follow up tests - Date: (09/20/17 labs).Encounter Diagnosis: BMI 26.0-26.9,adult, Current nonsmoker (Renamed from Current non-smoker), Hypertriglyceridemia, Kidney stones, Hematuria, microscopic, End: 30-Sep-2017 12:16 Type II diabetes mellitus, well controlled [facility] Office Visit On: 20-Sep-2017 8:37 Encounter Reason: Follow up for chronic medical issues - The patient feels well with minor complaints, has good energy level and is sleeping poorly. Patient has been compliant with instructions. Current medication use: n End: 20-Sep-2017 14:30 o side effects and compliant with dosing regimen. Patient sleeps 6 hours per night. Nutrition: balanced diet and supplemental vitamins. The medical issues the patient is following up for include All identified problems below and blood sugar issues. Encounter Diagnosis: Current nonsmoker (Renamed from Current non-smoker), BMI 26.0- 26.9,adult, Type II diabetes mellitus, well controlled, Hyperlipidemia, Grand mal seizure disorder, Hot flash, menopausal, Kidney stones [facility] Office Visit On: 22-Jul-2017 9:33 Encounter Reason: UTI - The urinary symptoms are described as frequency, urgency and burning. The symptoms have been occurring for 1 month and have been increasing. The symptoms have been associated with vaginal dischar End: 22-Jul-2017 13:52 ge (dark, looks like tissue). Note for Infection: 06/24/17 urine showed UTI. pt had 6 days of cipro x2 courses. and Saturday did have some discharge- moderate pain in the night 07/30-woke pt up once at night. Has discharge after pilates class-was checked by OBGYN-in April had testing done last year-normal exam. Has been having discharge for long time. Is on prometrium and estrace. This weekend w as more discharge-dark brownish with wiping and in undergarment. Some discomfort with urinating, discomfort 3/10 like a pulling sensation while sitting, frequency and urgency. Feels like she can't empty bladder. No fever or chills, back pain, abd pain, blood in urine that she can see.Encounter Diagnosis: BMI 27.0-27.9,adult, Current nonsmoker (Renamed from Current non- smoker), UTI (urinary tract infection), Hematuria, Kidney stones, Urgency of urination, Urine frequency [facility] Annotation/Addendum On: 01-Jul-2017 8:34 Encounter Diagnosis: Enterococcus faecalis infection, Pseudomonas aeruginosa colonization End: 01-Jul-2017 8:57 [facility] Office Visit On: 24-Jun-2017 10:47 Encounter Reason: Urinary problems - The urinary problems have been occurring for 1 day. Note for Urinary problems: Symptoms started 1 day ago with blood in urine, abd discomfort, groin pain, frequency, urgency. Did díaz End: 24-Jun-2017 11:34 ve blood on pantyliner. No back pain, odor, vaginal itching or discharge, no fever or chill. Drinking lots of fluids. No history of kidney stones. Last UTI 05/23/17-same symptoms-urine dip only showed trace leuks.Encounter Diagnosis: BMI 27.0-27.9,adult, Current nonsmoker (Renamed from Current non-smoker), Hematuria, Urine frequency, Abdominal pain in female [facility] Office Visit On: 29-May-2017 14:41 Encounter Reason: Follow up for chronic medical issues - The patient feels well with no complaints. Patient has been compliant with instructions. Current medication use: no side effects. Patient sleeps 8 (broken) hours p End: 29-May-2017 16:03 er night. Impact of disease: no overall impact. Nutrition: balanced diet. weight :., [ADDITIONAL REASON] Follow up tests - Diagnostic tests include other (blood labs 04/2017). Note for Discuss procedure results: Had UTI with pseudomonas was on macrodantin, then switched to cipro with relief Encounter Diagnosis: Impaired fasting glucose, Current nonsmoker (Renamed from Current non-smoker), Hypertriglyceridemia, BMI 27.0-27.9,adult , Grand mal seizure disorder, History of diarrhea, Numerous moles [facility] Phone Encounter On: 27-May-2017 16:45 Encounter Diagnosis: UTI (urinary tract infection) End: 27-May-2017 16:46 [facility] Office Visit On: 23-May-2017 7:47 Encounter Reason: UTI - The urinary symptoms are described as painful urination, frequency, urgency, flank pain and burning.Encounter Diagnosis: BMI 27.0- 27.9,adult, UTI (urinary tract infection), Current nonsmoker (Renamed from Current non-smoker) End: 23-May-2017 8:39 [facility] Office Visit On: 07-May-2017 8:25 Encounter Reason: Cold Symptoms - Symptoms include nasal congestion, runny nose, postnasal drainage, scratchy throat, hoarseness, dry cough and headache. Onset was 5 day(s) ago. The patient describes this as moderate in End: 07-May-2017 9:37 severity. Note for Cold symptoms: Symptoms started about 6 days ago-sore/scratchy throat, cough, headache, nasal drainage was clear now it is cloudy, facial pressure, ear pressure and pain, fatigue, S OB, CP from coughing, wheezing. No body aches, fever or chills, back pain, sneezing. Has taken advil, mucinex DM-helped sleep.Encounter Diagnosis: BMI 27.0- 27.9,adult, Current nonsmoker (Renamed from Current non-smoker), Cough, Sinusitis, bacterial , Facial pressure [facility] Annotation/Addendum On: 24-Apr-2017 9:32 Encounter Diagnosis: Hyperlipidemia, Osteopenia, Impaired fasting glucose End: 24-Apr-2017 9:37 [facility] Historical Summary On: 16-Jan-2016 16:24 Encounter Diagnosis: Encounter for general adult medical examination with abnormal findings End: 16-Jan-2016 16:27 [facility] Annotation/Addendum On: 17-Nov-2015 9:37 Encounter Diagnosis: Impaired fasting glucose End: 17-Nov-2015 13:58 [facility] Office Visit On: 17-Nov-2015 7:57 Encounter Reason: Follow up for chronic medical issues - The patient feels well with no complaints. Patient has been compliant with instructions. Current medication use: experiencing side effects (no more spotting from t End: 17-Nov-2015 8:52 he hormone replacement). Patient sleeps 8 hours per night. Impact of disease: no overall impact. Nutrition: balanced diet. weight :., [ADDITIONAL REASON] Follow up tests - Diagnostic tests include mammography (11/04) and other (blood labs 11/10/15). Encounter Diagnosis: BMI 27.0-27.9,adult, Current nonsmoker (Renamed from Current non-smoker), Family history of colon cancer, Osteopenia, Hyperlipidemia, Sleep disturbance, Sensory urge incontinence, Grand mal seizure disorder, Overweight, Dyspareunia, PMB (postmenopausal bleeding), Bladder prolapse, female, acquired, Uterine fibroid, Acute cystitis without hematuria, Hot flash, menopausal, Impaired fasting glucose, Hypertriglyceridemia [facility] Office Visit On: 22-Sep-2015 7:53 Encounter Reason: Follow up, Diagnostic Procedure Results - Diagnostic tests include ultrasound and other (endometrial biopsy ). Date: (09-15-14).Encounter Diagnosis: Urinary retention, Current nonsmoker (Renamed from Current non-smoker), End: 22-Sep-2015 8:44 Uterine fibroid, Acute cystitis without hematuria, Hot flash, menopausal, Bladder prolapse, female, acquired, PMB (postmenopausal bleeding), Dyspareunia [facility] Office Visit On: 20-Sep-2015 9:00 Encounter Reason: Urinary Retention - Symptoms include weak urinary stream, straining, incontinence, post-void dribbling, complete inability to void urine and pain, while symptoms do not include frequency or urgency. Raymond End: 20-Sep-2015 9:32 n is located in the suprapubic area and right lower abdomen. There is no radiation. The patient describes the pain as sharp. Onset was sudden 2 week(s) ago. There is no known event that preceded symptom onset. The symptoms occur frequently. The patient describes this as moderate in severity and unchanged. Associated symptoms do not include dysuria, fever, chills, nausea or vomiting. The patient is not currently being treated for this problem. Note for Urinary retention: the feeling of not being able to void completely with irregular stream has been a year- and has urge incontinence not much caffei ne - finds herself having to lean forward to emptyEncounter Diagnosis: Urinary retention, Sensory urge incontinence, Bladder prolapse, female, acquired [facility] Office Visit On: 29-Aug-2015 8:55 Encounter Reason: new patient female physical - Last seen between 3-6 months ago. General health: feels well with minor complaints and has decreased energy level. The patient's appetite is normal. Nutrition: normal/adequ End: 29-Aug-2015 10:07 ate. Exercises 3 days per week. Sleeps on average 6 (wakes up 3-4x during the night ) hours per night. Elimination problems include diarrhea (very rarely usually brought on by nerves). Safety measures i nclude appropriate use of safety belts and home smoke detectors. Current emotional problems include sleep disturbances ( snores ). screening, colonoscopy (2013), screening, mammography (2013), sc reening, Pap smear (2014 Dr. Castro ) and screening, visual acuity (lasik Surgery 2015 vision exam )., [ADDITIONAL REASON] Transition into care - The patient is transitioning into care from another physi chuy (Dr. Дмитрий Oliver ) and a summary of care was reviewed . Encounter Diagnosis: Hyperlipidemia, Grand mal seizure disorder, Hot flash, menopausal, Uterine fibroid, Current nonsmoker (Renamed from Current non-smoker), BMI 27.0-27.9,adult, PMB (postmenopausal bleeding), Family history of colon cancer, Overweight, Osteopenia, Encounter for screening mammogram for breast cancer (Renamed from Encounter for screening mammogram for malignant neoplasm of breast), Sleep disturbance [facility] Payers [facility] Tanner Cornejo; a guarantor
--- OUTSIDE RECORDS SUMMARY | 2018-05-14 09:40 | XMS RPT_ITS | Continuity of Care Document ---
:1955 Author Organization [facility] Address [address] [facility] [address] [place] [address] Phone Care Team Providers Name Role Phone Consuelo Farrell DO Unavailable Gerry Moreland Unavailable Dr. Heraclio Bhagat Unavailable Dr. Amilcar Cramer Unavailable Nic Villalobos MD Unavailable Long Marcela SANDRA Unavailable Unavailable Mya Woodard Unavailable Unavailable BOAZ Porras Unavailable Unavailable Jes Duarte Unavailable Unavailable Unavailable [...] history of June 2007, Dr. Makayla Fierro [facility] neurologist in [place], had head injuries in past. at first [...] Dispense as Written Comments:LUCASDr. Kerr at [facility] cosme Premarin 0.45 MG Oral Tablet 1 Tablet qd for 30 days Quantity: 30 {Tablet} Refills: 0 Ordered:20-Sep-2017 Maura Farrell DO, DO, Kathleen Start : 20-Sep-2017 Active Probiotic & Acidophilus Ex St Oral Capsule daily Active Prometrium 200 MG Oral Capsule 1 Capsule qd for 0 days Quantity: 30 {Capsule} Refills: 0 Ordered:29-May-2017 Qi CUSTOMS PATROL OFFICERConcepcion Start : 29-May-2017 Active Comments:Dr. Castro [facility] VITAMIN D3, 2000UNIT (Oral Capsule) 1 [...] days Quantity: 6 {Tablet} Refills: 0 Ordered:09-Jul-2017 Juana Acosta MD Start : 09-Jul-2017 End : [...] - PT Result: Comments: See Note; NOTES: [facility] Physical Therapy [facility] [facility]. [address] [place], [place] [id number] Fax REHABILITATION SERVICES INITIAL EVALUATION MR#: [id number] Acct: [id number] Name: ELAINE CORNEJO Rep #: [id number] : 1955 62 From: Lise Mccracken MPT Referring Dr.: NICHOLE Woodard Status: REG RCR Insurance: [facility] SELF PAY INSURANCE Patient's Visit Information ELAINE [...] to be FAXED BACK to us at [phone] for Medicare purp oses. Please let me know if there are questions or concerns regarding this plan of care. Physician Signature: Date: <Fracisco garvin signed by Lise Mccracken MPT> 11/15/17 1230 CC: NICHOLE Woodard; Consuelo Farrell DO Signed For Medicare only, by signing this I certify the plan of care. Physicians Signature Date 05-Nov-2017 L/S Spine Min 4 Views Result: Comments: See Note; NOTES: [facility] Imaging Services [address] [place] [address] L/S Spine Min 4 Views MR#: [id number] Acct: [id number] Name: ELAINE CORNEJO Rep #: [id number] : 1955 F 62 From: Moiz Nelson MD PCP: Rachel Jeff DO Status: REG CLI Study: L/S Spine Min 4 Views Date of Exam: 11/05/17 Exam# [id number] Ordering Dr: Mya Woodard STUDY: X-RAY - [...] MD at 16:04 EDT , Service support [phone], CC: NICHOLE Woodard; Rachel Jeff DO Director Quality Systems: Signed 24-Jun-2017 Abdomen/Pelvis without Cont Result: Comments: See Note; NOTES: [facility] Imaging Services [address] [place] [address] Abdomen/Pelvis without Cont MR#: [id number] Acct: [id number] Name: ELAINE CORNEJO Rep #: [id number] : 1955 F 61 From: Adalberto Hurtado MD PCP: Rachel Jeff DO Status: REG CLI Study: Abdomen/Pelvis without Cont Date of Exam: 06/24/17 Exam# [id number] Ordering Dr: Mya Woodard STUDY: CT ABDOMEN [...] Adalberto Hurtado MD at 12:29 EST Tel [phone], Service support , CC: NICHOLE Woodard; Rachel Jeff DO Director Quality Systems: Signed 10-Nov-2015 Bilat Scrn Digital AND CAD Result: Comments: See Note; NOTES: [facility] Imaging Services [address] [place] [address] Verdana 4d Bilat Scrn Digital AND CAD MR#: [id number] Acct: [id number] Name: ELAINE CORNEJO Rep #: [id number] : 1955 F 60 From: Adalberto Hurtado MD PCP: Juana Acosta MD Status: REG CLI Study: Micky Youngblood Digital AND CAD Date of Exam: 11/10/15 Exam# [id number] Inder king Dr: Juana Acosta MD MAMMOGRAPHY [...] delay biopsy of a clinically suspicious abnormality. [id number] Electronically Signed: Adalberto Hurtado MD at 15:30 EDT Tel [phone], Servic e support [phone], CC: Juana Acosta MD Director Quality Systems: Signed 10-Nov-2015 Dexa Bone Density Study (HP) Result: Comments: See Note; NOTES: [facility] Imaging Services [address] [place] [address] Verdana 4d Dexa Bone Density Study (HP) MR#: [id number] Acct: [id number] Name : ELAINE CORNEJO Rep #: [id number] : 1955 F 60 From: Adalberto Hurtado MD PCP: Juana Acosta MD Status: REG CLI Study: Dexa Bone Density Study (HP) Date of Exam: 11/10/15 Exam# [id number] Ludivina yung Dr: Juana Acosta MD STUDY: DUAL ENERGY X-RAY ABSORPTIOMETRY / [...] Adalberto Hurtado MD at 15:16 EDT Tel [phone], Service support [phone], CC: Juana Acosta MD Director Quality Systems: Signed 27-Oct-2015 Post Void Residual Bladder Result: Comments: See Note; NOTES: [facility] Imaging Services [address] [place] [address] Verdana 4d Post Void Residual Bladder MR#: [id number] Acct: [id number] Name: ELAINE CORNEJO Rep #: [id number] : 1955 F 60 From: Jeyson Espinoza MD PCP: Juana Acosta MD Status: REG CLI Study: Post Void Residual Bladder Date of Exam: 10/27/15 Exam# [id number] Ordering Dr: Juana Acosta MD STUDY: ULTRASOUND [...] Service support , CC: Juana Acosta MD Director Quality Systems: Signed Family History Unknown Family Member Name [...] smoker Vital Signs Date Test Result Details 47-Lug-186165:27 Temperature 97.9 f Comments: Method: Temporal Pulse [...] 2.04 m2 Results Date Description Value Details :38 URINE VAUGHN CULTURE-IDENTIFICATN Comments: PATIENT NOT FASTINGPERFORMED BY: [facility] Awghsp6968 [facility] [id number] Information: [id number] (12601) Result 1 NG36 (Normal) Comments: No growth in 36 - 48 hours. Urine Culture,Comprehensive Final report (Normal) :29 Urinalysis, Office (55597) UA - LEUKOCYTE ESTERASE Negative (Normal) UA - NITRITE Negative (Normal) URINE UROBILINGN ERIC TIMED Normal mg/dL (Normal) UA - PROTEIN Negative mg/dL (Normal) UA - PH 7 (Normal) UA - BLOOD + (Abnormal) UA - SPECIFIC GRAVITY 1.020 (Normal) UA - KETONES Negative mg/dL (Normal) UA - BILIRUBIN Negative (Normal) UA - GLUCOSE Negative (Normal) 6-Dxg-149826:51 Microscopic Examination Comments: PATIENT WAS FASTINGPERFORMED BY: [facility]inoSaint Luke[facility] Health SystemNklxoc7611 [facility] [id number] Bacteria Few (Normal) Mucus Threads Present (Normal) Epithelial Cells (non renal) 0-10 {/hpf} (Normal) Range: 0 - 10 RBC 0-2 {/hpf} (Normal) Range: 0 - 2 WBC 11-30 {/hpf} (Abnormal) Range: 0 - 5 :51 TSH (57658) Comments: PATIENT WAS FASTINGPERFORMED BY: [facility] [facility] TravelSouthern Ocean Medical CenterPuwfnn1646 [facility] [id number] TSH 2.670 {uIU/mL} (Normal) Range: 0.450-4.500 8-Eig-461677:51 URINALYSIS, W/ MICRO (34951) Comments: PATIENT WAS FASTINGPERFORMED BY: [employer] [facility] TravelSouthern Ocean Medical CenterLdhnrl3541 [facility] [id number] Microscopic Examination See below: (Normal) Comments: Microscopic was indicated and was performed. Nitrite, Urine Negative (Normal) Urobilinogen,Semi-Qn 0.2 mg/dL (Normal) Range: 0.2-1.0 Bilirubin Negative (Normal) Occult Blood 2+ (Abnormal) Ketones Negative (Normal) Glucose Negative (Normal) Protein 1+ (Abnormal) WBC Esterase Trace (Abnormal) Appearance Clear (Normal) Urine-Color Yellow (Normal) pH 8.5 (Abnormal) Range: 5.0-7.5 Specific [place] 1.020 (Normal) Range: 1.005-1.030 9-Efp-088392:51 MICROALBUMIN: CREATININE RATIO Comments: PATIENT WAS FASTINGPERFORMED BY: [facility] Hospital6370 [facility] [id number] (05631) AND (02086) Alb/Creat Ratio 16.2 {mg/g_creat} (Normal) Range: 0.0-30.0 Albumin, Urine 23.7 ug/mL (Normal) Creatinine, Urine 146.3 mg/dL (Normal) 9-Vye-878001:51 METABOLIC PANEL, COMPREHENSIVE Comments: PATIENT WAS FASTINGPERFORMED BY: [employer] [id number] (70629) ALT (SGPT) 15 [iU]/L (Normal) Range: 0-32 [...] 8-27 Glucose 94 mg/dL (Normal) Range: 65-99 2-Usy-290060:51 LIPID PANEL (36950) Comments: PATIENT WAS FASTINGPERFORMED BY: [employer] [facility] [id number] LDL/HDL Ratio 1.4 {ratio} (Normal) Range: 0.0-3.2 Comments: LDL/HDL Ratio Men Women 1/2 Avg.Risk 1.0 1.5 Av g.Risk 3.6 3.2 2X Avg.Risk 6.2 5.0 3X Avg.Risk 8.0 6.1 LDL Cholesterol Calc 64 mg/dL (Normal) Range: 0-99 VLDL Cholesterol Beni 72 mg/dL (Abnormal) Range: 5-40 HDL Cholesterol 46 mg/dL (Normal) Triglycerides 362 mg/dL (Abnormal) Range: 0-149 Cholesterol, Total 182 mg/dL (Normal) Range: 100-199 7-Eck-676308:51 CBC W/AUTO DIFF WBC (21566) Comments: PATIENT WAS FASTINGPERFORMED BY: [facility] Euryhu4177 [facility] [id number] Immature Grans (Abs) 0.0 {x10E3/uL} (Normal) Range: [...] (Normal) Range: 3.4-10.8 :54 HgA1C , Office (68043) HgA1C , Office 6.0 % (Normal) Range: 4.6 - 7.1 :54 Blood Glucose , Office (68546) Blood Glucose , Office 86 (Normal) :54 URINE VAUGHN CULTURE-IDENTIFICATN Comments: PATIENT NOT FASTINGPERFORMED BY: [employer] Yrgjyb2902 [facility] [id number] Information: SRC: ([id number]) Result 1 NG36 (Normal) Comments: No growth in 36 - 48 hours. Urine Culture,Comprehensive Final report (Normal) 6-Mkg-116782:03 Urinalysis, Office (36076) UA - LEUKOCYTE ESTERASE Negative (Normal) UA - NITRITE Negative (Normal) URINE UROBILINGN ERIC TIMED 2 mg/dL (Normal) UA - PROTEIN Negative mg/dL (Normal) UA - PH 7.0 (Normal) UA - BLOOD Hemolyzed Trace (Normal) UA - SPECIFIC GRAVITY 1.010 (Normal) UA - KETONES Negative mg/dL (Normal) UA - BILIRUBIN Negative (Normal) UA - GLUCOSE Negative (Normal) 4-Dch-379668:27 URINE VAUGHN CULTURE-ERIC COL Comments: PATIENT NOT FASTINGPERFORMED BY: [employer] Lxxoyx2520 [facility] [id number] Information: SRC: COUNT ([id number]) Result 2 PSMS (Abnormal) Comments: Pseudomonas zyhctlllac248 Colonies/mL S = Susceptible; I = Intermediate; [...] clindamycin, andtrimethoprim-sulfamethox azole are not effective clinically.(CLSI, J315-L90, 2016) Urine Final report (Abnormal) Culture,Comprehensive 8-Bpe-283734:52 Urinalysis, Office (15624) UA - LEUKOCYTE ESTERASE Negative (Normal) UA - NITRITE Negative (Normal) URINE UROBILINGN ERIC TIMED Normal mg/dL (Normal) UA - PROTEIN Negative mg/dL (Normal) UA - PH 7 (Normal) UA - BLOOD +++ (Abnormal) UA - SPECIFIC GRAVITY 1.010 (Normal) UA - KETONES Negative mg/dL (Normal) UA - BILIRUBIN Negative (Normal) UA - GLUCOSE Negative (Normal) 23-May-20178:37 Urine Culture,Comprehensive Comments: PATIENT NOT FASTINGPERFORMED BY: [facility] Jzcqvy1828 [facility] [id number] Information: SRC:UC Result 1 PSMS (Abnormal) Comments: Pseudomonas aeruginosaGreater than 100,000 colony forming units per mL S = Susceptible; I = Intermediate; R = Resistant P = Positive; N = Negative MICS are expres sed in micrograms per mL Antibiotic RSLT#1 RSLT#2 RSLT#3 RSLT#4Amikacin SCefepime SCeftazidime SCiprofloxacin SGentamicin SImipenem SLevofloxacin SMeropenem SPiperacillin STicarcillin STobramycin S Urine Final report (Abnormal) Culture,Comprehensive 23-May-20177:53 Urinalysis, Office (96415) UA - LEUKOCYTE ESTERASE Trace (Normal) UA - NITRITE Negative (Normal) URINE UROBILINGN ERIC TIMED 2 mg/dL (Normal) UA - PROTEIN Negative mg/dL (Normal) UA - PH 7.0 (Normal) UA - BLOOD Hemolyzed Large (Normal) UA - SPECIFIC GRAVITY 1.015 (Normal) UA - KETONES Negative mg/dL (Normal) UA - BILIRUBIN Negative (Normal) UA - GLUCOSE Negative (Normal) 77-Ika-58424:12 HGB A1C (91873) Comments: PATIENT WAS FASTINGPERFORMED BY: [facility]6370 [facility] [id number] Hemoglobin A1c 6.2 % (Abnormal) Range: 4.8-5.6 Comments: . Pre-diabetes: 5.7 - 6.4 Diabetes: >6.4 Glycemic control for adults with diabetes: <7.0 91-Uoq-27371:12 CALCIFEDIOL (35631) Comments: PATIENT WAS FASTINGPERFORMED BY: [facility]6370 [facility] [id number] Vitamin D, 25-Hydroxy 40.1 ng/mL (Normal) Range: 30.0-100.0 Comments: Vitamin D deficiency has been defined by the [place] ofMedicine and an Endocrine Society practice guideline as alevel of serum 25-OH vitamin D less than 20 ng/mL (1,2).The Endocrine Society went on to further define vitamin Dinsufficiency as a level between 21 and 29 ng/mL (2).1. IOM ([place] of Medicine). 2010. Dietary reference intakes for calcium and D. [place]: The National Academies Press.2. Nasra MF, [place], Hugh DÍAZ, et al. Evaluation, treatment, and prevention of vitamin D deficiency: an Endocrine Society clinical practice guideline. JCEM. 2010; 96(7):1911-30. 10-Jdh-72951:12 CBC, Platelets & Auto Diff Comments: PATIENT WAS FASTINGPERFORMED BY: [facility]6370 [facility] [id number] (67440) Basos 0 % (Normal) Eos 3 % [...] Neutrophils (Absolute) 4.0 {x10E3/uL} (Normal) Range: 1.4-7.0 96-Lml-96254:12 Metabolic Panel, Comprehensive Comments: PATIENT WAS FASTINGPERFORMED BY: [facility]CoSouthern Ocean Medical CenterIkwblc5315 [facility] [id number] (99014) ALT (SGPT) 15 [iU]/L (Normal) Range: 0-32 [...] Glucose, Serum 108 mg/dL (Abnormal) Range: 65-99 34-Whs-99869:12 LIPID PANEL (61384) Comments: PATIENT WAS FASTINGPERFORMED BY: [facility] Efsrot2453 [facility] [id number] LDL/HDL Ratio 1.5 {ratio_units} (Normal) Range: 0.0-3.2 [...] (Normal) Range: 100-199 :38 HgA1C , Office (22706) HgA1C , Office 6.1 % (Normal) Range: 4.6 - 7.1 :47 Blood Glucose , Office (88012) :12 CBC W/Diff, Automated Comments: [facility] [address] [place], [place], [id number] ; fu 7-28 Absolute Lymph 2.58 {X10_3/ul} [...] 4.2-5.4 WBC 6.3 K/mm3 (Normal) Range: 4.4-11.0 47-Dth-83737:12 Comprehensive Metabolic Profil Comments: [facility] [address] [place], [address] GAP 10 (Normal) Range: 5-15 CO2 24.0 [...] (Normal) Range: 70-110 :12 Free T3 Comments: [facility] [address] [place], [place], [address] FREE T3 2.6 pg/mL (Normal) Range: 2.18-3.98 :12 Lipid Profile Comments: [facility] [address] [place], [place], [address] VLDL 55 mg/dL (Abnormal) Range: 5-40 LDL [...] >240 mg/dL High Risk :12 Prolactin Comments: [facility] [address] [place], [address] PROLACTIN 5.2 ng/mL (Normal) Comments: NORMAL REFERENCE RANGES FEMALE NON- 2.2 - 30.3 ng/mL 8.1 - 347.6 ng/mL POST-MENOPAUSAL 0.7 - 3 1.5 ng/mL MALE 2.5 - 17.4 ng/mLNEW TEST METHOD AND REFERENCE RANGES SEPTEMBER 10, 2011:12 T4 Free Direct Comments: [facility] [address] [place], [id number] T4 FREE DIRECT 0.85 ng/dL (Normal) Range: 0.76-1.46 :12 Thyroid Stim Hormone (TSH) Comments: [facility] [address] [place], [address] TSH 3.00 {uIU/mL} (Normal) Range: 0.358-3.74 :12 Vitamin D,25 Hydroxy Comments: [facility] [address] [place], [address] Vitamin D 25-OH 28.4 ng/mL (Normal) Comments: Vitamin D 25(OH) Status Range Deficiency <20 ng/mL (50nmol/L) Insuffciency 20 - 30 ng/mL (50 - 75 nmol/L) Sufficiency 30 - 100 ng/mL (75 - 250 nmol/L) Toxicity >100 ng/mL (>250 nmol/L) 0-Afa-394184:02 URINE VAUGHN CULTURE-IDENTIFICATN Comments: recheck in 3-4 weeks once done with atb; PATIENT NOT FASTINGPERFORMED BY: [facility] Zcpomo1198 [facility] [id number] Information: [id number] (33404) Antimicrobial MIHEAD (Normal) Comments: S = Susceptible; [...] Final report Culture,Comprehensive (Abnormal) :56 Urinalysis, Office (69928) UA - LEUKOCYTE ESTERASE Negative (Normal) UA - NITRITE Negative (Normal) URINE UROBILINGN ERIC TIMED Normal mg/dL (Normal) UA - PROTEIN Negative mg/dL (Normal) UA - BLOOD Negative (Normal) UA - SPECIFIC GRAVITY 1.020 (Normal) UA - KETONES Small mg/dL (Normal) UA - BILIRUBIN Negative (Normal) UA - GLUCOSE Negative (Normal) 16-Ems-072272:05 URINE VAUGHN CULTURE-ERIC COL Comments: PATIENT NOT FASTINGPERFORMED BY: [facility] Mgzlay5204 [facility] [id number] Information: SRC:URC [id number] COUNT (86887) Antimicrobial MIHEAD (Normal) Comments: S = Susceptible; [...] mL (Abnormal) Urine Final report Culture,Comprehensive (Abnormal) 79-Jfq-61708:02 Urinalysis, Office (27236) UA - LEUKOCYTE ESTERASE Negative (Normal) UA [...] Lab Indication: Hematuria, microscopic Hyperlipidemia : Reviewed Supervisor [employer] Letter Indication: Hyperlipidemia Hyperlipidemia : Continue Current [...] Eprescribed prescriptions (G8553) Indication: Hyperlipidemia Planned Observations TRIGLYCERIDES (81537)Indication: Hypertriglyceridemia On: 46-Gep-678763:11 Request Blood Glucose , Office (60689)Indication: Impaired fasting glucose On: 67-Zhm-50095:47 Request CALCIFIDIOL (49853) VIT D 25Indication: Osteopenia On: :56 Request PROLACTIN (74360)Indication: PMB (postmenopausal bleeding) On: :42 Request CBC (Auto) (96441)Indication: Hyperlipidemia On: :42 Request Metabolic Panel, Comprehensive (30989)Indication: Hyperlipidemia On: :42 Request Lipid Panel (19448)Indication: Hyperlipidemia On: :42 Request T3, FREE (TRIDOTHYRONINE) (88288)Indication: PMB (postmenopausal bleeding) On: :42 Request T4, FREE (THYROXINE) (48610)Indication: PMB (postmenopausal bleeding) On: :42 Request TSH (49676)Indication: PMB (postmenopausal bleeding) On: :42 Request Planned Procedures PHYSICAL THERAPY (15643)By: Vance On: 07-Nov-2017 Intent Mya PHYSICAL THERAPY (62663)By: Vance On: 05-Nov-2017 Intent Mya Wax CurettesBy: Mya Woodard On: 05-Nov-2017 Intent Ear Irrigation (33093)By: Vance On: 05-Nov-2017 Intent Mya Comments: IrrigationSite- L and R earAmount/Color/Quality - small amoubt of dark brown cerumen removed from bilateral ears Tolerated wellChelsea, BOTTLE WASHER MACHINE Radiology - Lumbar SpineBy: Vance On: 05-Nov-2017 Intent Mya ELECTROCARDIOGRAM, COMPLETE (ECG) On: 20-Sep-2017 Intent (38702)By: Consuelo Farrell DO Comments: nsr no acute chgs-- IVCD-- no old to compare Consuelo Farrell DO CT - Abdomen & Pelvis Stone On: 24-Jun-2017 Intent ProtocolBy: Mya Woodard Comments: R/O kidney stone BLADDER ULTRASOUND SCAN WITH On: 22-Sep-2015 Intent MEASUREMENT OF POST-VOID RESIDUAL Comments: in 4 weeks after done with atb URINE VOLUME (02162)By: Juana Acosta MD MAMMOGRAM, SCREENING, BOTH BREAST On: 29-Aug-2015 Intent (45642)By: Juana Acosta MD DEXA SCAN AXIAL SKELETON (98889)By: On: 29-Aug-2015 Intent Dave FAITH, Juana Carr Instructions Name Dates Details Current nonsmoker (Renamed [...] Hyperlipidemia : Patient Instructions Indication: Hyperlipidemia Encounters Annotation/Addendum On: 07-Nov-2017 10:43 Encounter Diagnosis: Spondylosis, [...] some discharge- moderate pain in the night /-woke pt up once at night. Has discharge [...] screening, mammography (2013), sc reening, Pap smear (2015 Dr. Castro ) and screening, visual acuity [...] for malignant neoplasm of breast), Sleep disturbance [facility] Internal Medicine Payers [facility] Tanner Cornejo; a guarantor
== END ==
PROVIDERS: Visit Provider Nurse Practitioner Adult Health
DX: R31.0 Gross hematuria (principal)

== ENCOUNTER → 2018-10-08 15:31 | Outpatient (CLI) | payer OTHER, SELFPAY ==
--- NOTE | 2018-10-08 15:37 | RAD_ITS ---
HISTORY: COUGH WHEEZE X 2 MO EXAM: XR Chest 2 Views: COMPARISON: None FINDINGS: # of images incl. paperwork: 2 Lungs are clear. Heart is not enlarged. Kyphosis with multilevel degenerative disc disease. Disc disease as manifested by loss of disc height, endplate sclerosis, and anterior enthesophytes. Pulmonary vascularity is distinct. No effusions. RAD/Chest PA and Lateral IMPRESSION: No acute cardiopulmonary disease to the chest. at 0024 Reported and signed by: Kevin Mejia MD Electronically Signed: Kevin Mejia MD at 0:23 EDT Tel , Service support ,
== END ==
PROVIDERS: Family Provider Internal Medicine; PCP Internal Medicine; Referring Provider Nurse Practitioner; Visit Provider Nurse Practitioner
DX: J45.30 Mild persistent asthma, uncomplicated (principal); J44.9 Chronic obstructive pulmonary disease, unspecified
CPT/HCPCS: 71046

== ENCOUNTER → 2019-12-15 12:31 | Outpatient (CLI) | payer OTHER, SELFPAY ==
--- NOTE | 2019-12-15 12:36 | BD_ITS ---
STUDY: DUAL ENERGY X-RAY ABSORPTIOMETRY / DXA REASON FOR EXAM: Female, 64 years old. RN CIRCULATING -- CURRENTLY ON HRT -- TAKES KEPPRA -- TAKES CALCIUM IRREGULARLY -- DOES MODERATE AMOUNT OF EXERCISE -- GINA OF 0.25 INCH TECHNIQUE: Bone Mineral Density (BMD) measurements of lumbar spine and bilateral hips were obtained. COMPARISON: Comparison is made with prior study dated 11/10/2015. FINDINGS: Lumbar Spine (L1-L4): g/cm2 (1.182) / T-score (-0.2) / Z-score (1.4) Findings are suggestive of normal bone density with a low fracture risk. Left Femur Total: g/cm2 (1.030) / T-score (0.2) / Z-score (1.4) Left Femoral Neck: g/cm2 (0.904) / T-score (-1.0) / Z-score (0.5) Right Femur Total: g/cm2 (1.030) / T-score (0.2) / Z-score (1.4) Right Femoral Neck: g/cm2 (0.929) / T-score (-0.8) / Z-score (0.7) The T-Scores on the most recent prior examination were: Lumbar Spine (L1-L4): There has been improvement of bone density since the previous examination. Left Femur Total: which represents a worsening of 0.3%. Right Femur Total: which represents an improvement of 1.1%. BD/Dexa Bone Density Study IMPRESSION: The patient is considered normal as outlined below according to World Avila Organization (WHO) criteria with a low fracture risk. There has been improvement of bone density since the previous examination. Reference Information: The T-score is the number of standard deviations above or below the standard which is normal for young adults at their peak bone mineral density. The World Health Organization (WHO) interprets the T-scores as follows: Above -1 Normal bone density Between -1 and -2.5 Osteopenia Equal to / or below -2.5 Osteoporosis As a practical clinical guideline, osteopenia may be graded as follows: Mild -1 through -1.5 Moderate -1.6 through -2.0 Severe -2.1 through -2.4 The Z-score is the number of standard deviations above or below age-matched controls. A Z-score of less than -1.5 would be considered abnormal. References: 1. NIH Osteoporosis and Related Bone Diseases http://www.osteo.org 2. International Society for Clinical Densitometry http://www.iscd.org 3. National Osteoporosis Foundation http://www.nof.org Electronically Signed: Adalberto Hurtado, at 12:57 EDT , Service support ,
== END ==
PROVIDERS: PCP Internal Medicine; Referring Provider Internal Medicine; Visit Provider Internal Medicine
DX: Z78.0 Asymptomatic menopausal state (principal)
CPT/HCPCS: 77080

== ENCOUNTER → 2019-12-24 12:13 | Outpatient (CLI) | payer OTHER, SELFPAY ==
--- NOTE | 2019-12-24 12:16 | BI_ITS ---
MAMMOGRAPHY - BILATERAL SCREENING REASON FOR EXAM: Female, 64 years old. Routine annual screening examination. PERTINENT HISTORY: Non-contributory. TECHNIQUE: Digital bilateral breast gaby (3D mammographic acquisition) in the CC and MLO projections. 2-D mediolateral oblique (MLO) and craniocaudad (CC) views of both breasts were obtained. CAD: Full Field Digital Mammography with Computer Added Detection was performed. COMPARISON: Comparison is made with prior examination dated 11/10/2015. FINDINGS: Breast Composition: The breasts are almost entirely fatty. There are no dominant masses or suspicious calcifications. Stable small benign appearing bilateral axillary lymph nodes. No other significant abnormalities are identified. There has been no significant change since the prior study. BI/SCREEN MAMM (CAD) W/GABY BILAT IMPRESSION: Stable bilateral screening mammogram. Yearly follow-up mammogram recommended. (A) ASSESSMENT CATEGORY: BIRADS Category 2: Benign. A letter regarding these results will be sent to the patient by the facility within 30 days. Approximately 10% of breast cancers are not detected by mammography. A normal mammogram should not delay biopsy of a clinically suspicious abnormality. [id number] Electronically Signed: Adalberto Hurtado, at 13:11 EDT , Service support ,
== END ==
PROVIDERS: PCP Internal Medicine; Referring Provider Internal Medicine; Visit Provider Internal Medicine
DX: Z12.31 Encounter for screening mammogram for malignant neoplasm of breast (principal)
CPT/HCPCS: 77063; 77067

== ENCOUNTER 2021-06-15 10:02 | Outpatient (CLI) | payer OTHER, SELFPAY | END 2021-06-15 23:59 | disposition home or self-care (01) | LOC: LABSPEC 10:09 | PROVIDERS: PCP Internal Medicine; Visit Provider Internal Medicine | DX: R39.9 Unspecified symptoms and signs involving the genitourinary system (principal) | CPT/HCPCS: 87086; 87088 ==

== ENCOUNTER → 2021-10-31 | Outpatient (CLI) | payer OTHER, SELFPAY ==
--- NOTE | 2021-10-31 15:15 | RAD_ITS ---
STUDY: X-RAY - LEFT WRIST REASON FOR EXAM: Female, 66 years old. HAND PAIN TECHNIQUE: 3 view(s) of the wrist were obtained. COMPARISON: None. FINDINGS: Normal visualized distal radius and ulna. Normal radiocarpal articulation. Normal distal radioulnar articulation. Normal carpal bones. Normal carpal articulations. Arthritic changes of the carpometacarpal articulation of the thumb. Normal second through fifth carpometacarpal articulations. Normal visualized metacarpal bones. The soft tissue structures are unremarkable. RAD/Wrist min 3 Views IMPRESSION: Degenerative changes of the base of the thumb. Otherwise normal wrist. MRI may be useful for further assessment if clinically warranted Electronically Signed: Ronald Valdivia MD at 22:59 EDT ,
== END | disposition home or self-care (01) ==
LOC: RAD 15:08
PROVIDERS: PCP Internal Medicine; Referring Provider Internal Medicine; Visit Provider Internal Medicine
DX: M25.532 Pain in left wrist (principal)
CPT/HCPCS: 73110

== ENCOUNTER → 2021-11-16 | Outpatient (CLI) | payer OTHER, SELFPAY ==
--- NOTE | 2021-11-16 09:42 | RAD_ITS ---
INDICATION: WRIST PAIN EXAMINATION/TECHNIQUE: X-RAY - LEFT XR Wrist Min 3 Views 3 VIEWS COMPARISON: 10/31/2021 left wrist x-rays FINDINGS: SOFT TISSUES: No soft tissue swelling or gas. No radiopaque foreign body. BONES/JOINTS: No acute fracture or malalignment. Moderately advanced degenerative changes first carpometacarpal joint, unchanged. Mild degenerative changes first metacarpal phalangeal joint. Distal radioulnar joint, radiocarpal and intercarpal articulations are within normal limits. No sclerotic or destructive changes observed. RAD/Wrist min 3 Views IMPRESSION: Moderately advanced degenerative changes first carpometacarpal joint, unchanged. Electronically Signed: Rob Doty DO at 22:17 EDT ,
== END | disposition home or self-care (01) ==
LOC: MTRAD 09:41
PROVIDERS: PCP Internal Medicine; Referring Provider Internal Medicine; Visit Provider Internal Medicine
DX: M25.532 Pain in left wrist (principal)
CPT/HCPCS: 73110

== ENCOUNTER → 2022-12-19 | Outpatient (CLI) | payer MEDICARE, OTHER, SELFPAY ==
--- NOTE | 2022-12-19 17:48 | CT_ITS ---
EXAM: CT MAXILLOFACIAL SINUSES WITHOUT INTRAVENOUS CONTRAST CLINICAL INDICATION: CHRONIC RHINITIS TECHNIQUE: Helically acquired images were obtained of the maxillofacial sinuses without intravenous contrast. This CT exam was performed using one or more of the following dose reduction techniques: automated exposure control, adjustment of the mA and/or kV according to patient size, and/or use of iterative reconstruction technique. COMPARISON: No relevant prior studies available. FINDINGS: MAXILLARY SINUSES: There is mild mucosal thickening in the maxillary sinuses. There is opacification of the single anterior left ethmoid air cell. Ostiomeatal complexes are normally formed. SPHENOID SINUSES: Clear. FRONTAL SINUSES: Clear. ETHMOID AIR CELLS: See above. NASAL CAVITY/SEPTUM: Nasal septum is midline. Nasal turbinates are unremarkable. BONES/JOINTS: Anterior cranial fossa is unremarkable. ORBITS: Unremarkable. DENTAL: Unremarkable as visualized. No periodontal osseous erosion. CT/Sinus/Facial Bone IMPRESSION: There is mild chronic appearing sinusitis in the maxillary and ethmoid sinuses. No air-fluid levels are seen. Electronically Signed: Denny Shipman MD at 22:52 EDT ,
== END | disposition home or self-care (01) ==
LOC: CT 17:46
PROVIDERS: PCP Internal Medicine; Referring Provider Internal Medicine; Visit Provider Internal Medicine
DX: J31.0 Chronic rhinitis (principal)
CPT/HCPCS: 70486

== ENCOUNTER → 2023-09-12 | Outpatient (CLI) | payer MEDICARE, OTHER, SELFPAY ==
--- NOTE | 2023-09-12 10:41 | BI_ITS ---
MAMMOGRAPHY - BILATERAL SCREENING 3-D TOMOSYNTHESIS REASON FOR EXAM: Female, 67 years old. screening PERTINENT HISTORY: No significant family history. TECHNIQUE: 2-D mammograms and 3-D Tomosynthesis of the breast (s) were performed. CAD was performed. COMPARISON: 12/24/2019 FINDINGS: The breast composition is composed of scattered fibroglandular density. Scattered benign calcifications are seen. No dense spiculated masses or suspicious microcalcifications are identified. No architectural distortion is identified. There is no skin thickening or retraction. There has been no significant change since the prior study. BI/SCRN MAMM (CAD)W/GABY BILAT IMPRESSION: No mammographic signs of malignancy. Routine yearly mammograms recommended. ASSESSMENT CATEGORY: BIRADS Category 1: Negative. A letter regarding these results will be sent to the patient by the facility within 30 days. FOLLOW UP RECOMMENDATION: Yearly follow up mammogram recommended. (A) Approximately 10% of breast cancers are not detected by mammography. A normal mammogram should not delay biopsy of a clinically suspicious abnormality. Electronically Signed: Abraham Cifuentes MD at 17:31 EDT ,
--- NOTE | 2023-09-12 10:42 | BD_ITS ---
STUDY: DUAL ENERGY X-RAY ABSORPTIOMETRY / DXA REASON FOR EXAM: Female, 67 years old. [id number] TECHNIQUE: Bone Mineral Density (BMD) measurements of lumbar spine and bilateral hips were obtained. COMPARISON: Comparison is made with prior study dated December 15, 2019. FINDINGS: Lumbar Spine (L1-L4): g/cm2 (0.887) / T-score (-1.7) / Z-score (0.4) Findings are suggestive of osteopenia with a moderate fracture risk. Left Femur Total: g/cm2 (0.907) / T-score (-0.3) / Z-score (1.1) Left Femoral Neck: g/cm2 (0.701) / T-score (-1.3) / Z-score (0.4) Right Femur Total: g/cm2 (0.861) / T-score (-0.7) / Z-score (0.8) Right Femoral Neck: g/cm2 (0.673) / T-score (-1.6) / Z-score (0.1) The T-Scores on the most recent prior examination were: Lumbar Spine (L1-L4): There has been worsening of bone density since the previous examination. Left Femur Total: which represents a worsening of 5.9%. Right Femur Total: which represents a worsening of 10.5%. BD/Dexa Bone Density Study IMPRESSION: The patient is considered osteopenic as outlined below according to World [employer] Organization (WHO) criteria with a moderate fracture risk. There has been worsening of bone density since the previous examination. Reference Information: The T-score is the number of standard deviations above or below the standard which is normal for young adults at their peak bone mineral density. The World Health Organization (WHO) interprets the T-scores as follows: Above -1 Normal bone density Between -1 and -2.5 Osteopenia Equal to / or below -2.5 Osteoporosis As a practical clinical guideline, osteopenia may be graded as follows: Mild -1 through -1.5 Moderate -1.6 through -2.0 Severe -2.1 through -2.4 The Z-score is the number of standard deviations above or below age-matched controls. A Z-score of less than -1.5 would be considered abnormal. References: 1. NIH Osteoporosis and Related Bone Diseases www osteo.org 2. International Society for Clinical Densitometry www iscd.org 3. National Osteoporosis Foundation www nof.org Electronically Signed: Adalberto Hurtado MD at 13:01 EDT ,
== END | disposition home or self-care (01) ==
LOC: OPBD 10:39
PROVIDERS: PCP Internal Medicine; Referring Provider Internal Medicine; Visit Provider Internal Medicine
DX: Z12.31 Encounter for screening mammogram for malignant neoplasm of breast (principal); Z78.0 Asymptomatic menopausal state
CPT/HCPCS: 77063; 77067; 77080

== ENCOUNTER → 2024-03-03 | Outpatient (CLI) | payer MEDICARE, OTHER, SELFPAY ==
--- NOTE | 2024-03-03 11:14 | US_ITS ---
INDICATION: ULTRASOUND OF KIDNEYS AND BLADDER WITH MEASUREMENT OF POST-VOID R -- Hematuria, gross EXAMINATION: Ultrasound US Kidney(s) complete (eg, kidneys and bladder) TECHNIQUE: Correia scale and color doppler images were obtained of the kidneys. COMPARISON: FINDINGS: RIGHT KIDNEY: 11.6 x 5.6 x 4.5 cm. The cortex is 11 mm. There is no hydronephrosis. Up to 5 mm nonobstructive calculi. LEFT KIDNEY: 12.1 x 5.8 x 5.9 cm. The cortex is 13 mm. There is no hydronephrosis. Up to 5 mm nonobstructive calculi. URINARY BLADDER: 232 cc in volume with 74 cc of postvoid residual. US/Kidney and Bladder IMPRESSION: Nonobstructive calculi bilaterally. Postvoid residual in the urinary bladder. Electronically Signed: Bill Jacques DO at 9:38 EST ,
== END | disposition home or self-care (01) ==
LOC: US 11:14
PROVIDERS: PCP Internal Medicine; Referring Provider Internal Medicine; Visit Provider Internal Medicine
DX: R31.0 Gross hematuria (principal)
CPT/HCPCS: 76770

== ENCOUNTER 2024-04-30 09:39 | Outpatient (RCR) | payer MEDICARE, OTHER, SELFPAY | END 2024-05-22 23:59 | LOC: NS 09:39 | PROVIDERS: PCP Internal Medicine; Referring Provider Internal Medicine; Visit Provider Internal Medicine | DX: Z71.3 Dietary counseling and surveillance (principal); E11.9 Type 2 diabetes mellitus without complications | CPT/HCPCS: 97802 ==

== ENCOUNTER → 2024-06-01 | Outpatient (CLI) | payer MEDICARE, OTHER, SELFPAY ==
--- NOTE | 2024-06-01 13:52 | VDLE_ITS ---
Reason For Study Reason For Study: Swelling LLE RIGHT LEFT CFV is compressible, spontaneous, phasic, competent CFV is compressible, spontaneous, phasic, competent, and demonstrates normal augmentation. and demonstrates normal augmentation. Procedure FV is compressible, spontaneous, phasic, competent This is a venous duplex using B-mode, color flow and and demonstrates normal augmentation. spectral Doppler. POP V is compressible, spontaneous, phasic, competent Exam performed in department. and demonstrates normal augmentation. A preliminary report was called and/or faxed to T/P Trunk is compressible. Giovanna ADDISON. LT PerV is compressible. Lt PTV is DILATED and NON COMPRESSIBLE consistent with acute DVT Lt GSV and LT SSV are occluded s/p EVLA. VL/Venous Duplex US, Unilateral Interpretation Summary Acute deep vein thrombosis is noted in the left posterior tibial vein. Left great saphenous vein and small saphenous vein occluded, prior ablation. Ordering Physician: Juana Acosta Referring Physician: Juana Acosta Performed By: Edilma Alvarado, JERMAINE, RVT
== END | disposition home or self-care (01) ==
PROVIDERS: PCP Internal Medicine; Referring Provider Nurse Practitioner Family; Visit Provider Nurse Practitioner Family
DX: M79.89 Other specified soft tissue disorders (principal)
CPT/HCPCS: 93971

== ENCOUNTER → 2024-06-18 | Outpatient (CLI) | payer MEDICARE, OTHER, SELFPAY ==
--- NOTE | 2024-06-18 12:41 | CT_ITS ---
PROCEDURE: ABDOMEN/PELVIS WITHOUT CONT REASON FOR EXAM: History of bilateral renal calculi. Hematuria. TECHNIQUE: Abdomen and pelvis CT without intravenous contrast. COMPARISON: Comparison is made with prior study dated June 24, 2017. FINDINGS: Noncontrast technique limits evaluation of the abdominal and pelvic viscera. Lung bases: Clear Liver: Unremarkable. Gallbladder: Surgically absent. Spleen: Unremarkable. Pancreas: Unremarkable. Adrenals: Unremarkable. Kidneys: 3 mm nonobstructive calculus in the anterior midpole calyx of the left kidney. Punctate nonobstructive calculus in the lower pole calyx of the left kidney. There are 2 tiny nonobstructive calculi in the lower pole calyx of the right kidney. Bladder: Unremarkable. Reproductive Organs: Unremarkable. Bowel: Colonic diverticulosis without diverticulitis. Appendix: Normal. Lymph nodes: No suspicious lymph node enlargement. Vasculature: Mild diffuse atherosclerotic calcifications are noted. Peritoneum / Retroperitoneum: No ascites. No free air. Bones: Degenerative changes of the spine. CT/Abdomen/Pelvis without Cont IMPRESSION: Small bilateral intrarenal calculi. No evidence of the ureteral obstruction. Scattered sigmoid diverticula. Status post cholecystectomy. One or more dose reduction techniques were used (e.g., Automated exposure contr ol, adjustment of the mA and/or kV according to patient size, use of iterative reconstruction technique). Reading Location: [id number]
== END | disposition home or self-care (01) ==
LOC: CT 12:39
PROVIDERS: PCP Internal Medicine; Referring Provider Urology; Visit Provider Urology
DX: N20.0 Calculus of kidney (principal)
CPT/HCPCS: 74176

== ENCOUNTER → 2024-10-02 | Outpatient (CLI) | payer MEDICARE, OTHER, SELFPAY ==
--- NOTE | 2024-10-02 08:12 | BI_ITS ---
EXAM: SCRN MAMM (CAD)W/GABY BILAT 10/02/2024 CLINICAL HISTORY: F, Age 68 y/o , BILATERAL MAMMO SCREENING TECHNIQUE: Bilateral screening digital breast tomosynthesis with 2D and 3D images. Computer aided detection. COMPARISON: Prior exam(s) dated 09/12/2023, 12/24/2019. FINDINGS: TISSUE DENSITY: The breast tissue is almost entirely fatty.. Bilateral Breast Mammographic Findings: No significant masses, calcifications or other abnormalities are identified. BI/SCRN MAMM (CAD)W/GABY BILAT IMPRESSION: Right Breast: BIRADS 1 NEGATIVE. Left Breast: BIRADS 1 NEGATIVE. OVERALL FINAL ASSESSMENT: BIRADS 1 NEGATIVE. RECOMMENDATION: Routine annual follow-up in 1 Year A letter with findings and recommendations will be mailed to the patient. Reading Location: [id number]
== END | disposition home or self-care (01) ==
LOC: OPBI 08:05
PROVIDERS: PCP Internal Medicine; Referring Provider Internal Medicine; Visit Provider Internal Medicine
DX: Z12.31 Encounter for screening mammogram for malignant neoplasm of breast (principal)
CPT/HCPCS: 77063; 77067

== ENCOUNTER 2025-02-04 12:20 | Outpatient (RCR) | payer MEDICARE, OTHER, SELFPAY | END 2025-02-19 23:59 | LOC: NS 12:20 | PROVIDERS: PCP Internal Medicine; Referring Provider Internal Medicine; Visit Provider Internal Medicine | DX: Z71.3 Dietary counseling and surveillance (principal) | CPT/HCPCS: 97803 ==